=== PATIENT | female | born 1985 | race Caucasian/White ===

== ENCOUNTER 2020-10-09 09:02 | Outpatient (REF) | payer OTHER, SELFPAY | END 2020-10-09 09:03 | disposition home or self-care (01) | LOC: HO.LAB 09:02 | PROVIDERS: Visit Provider Internal Medicine | DX: Z20.822 Contact with and (suspected) exposure to COVID-19 (principal) | CPT/HCPCS: 36415; C9803; U0003; U0005 ==

== ENCOUNTER 2020-10-27 13:51 | Emergency (ER) | payer OTHER, SELFPAY ==
--- NOTE | ~2020-10-27 | XR_ITS ---
EXAMINATION: XR FOREARM, RIGHT CLINICAL INFORMATION: Arm pain COMPARISON: None TECHNIQUE: AP and lateral views of the right forearm were obtained. FINDINGS: There is no fracture or cortical disruption. Alignment is maintained at the elbow and wrist. Mild soft tissue swelling of the forearm diffusely. No radiopaque foreign body. XR/XR forearm RT 2V IMPRESSION: Soft tissue swelling without osseous abnormality.
[2020-10-27 13:55] VITALS: BMI 22.6
--- NOTE | 2020-10-27 14:04 | PC.NURSE ---
Pt refusing vitals and care. She is being seen by the physician at this time. She is very agitated but denies HI and SI.
[2020-10-27] MEDS: Haloperidol Lactate 5 MG/ML VIAL 10 MG IM (14:15)
[2020-10-27] MEDS: LORazepam 2 MG/ML VIAL IM (14:15)
--- NOTE | 2020-10-27 14:31 | PC.NURSE ---
Medical restraint given due to pt not being cooperative. Per MD pt is manic at this time and a section 12 was filed. She is refusing vitals and blood work at this time. Will continue to re-evaluate.
[2020-10-27 15:00] VITALS: BP 121/75; PULSE 82; RESP 17; O2SAT 95
[2020-10-27 15:15] VITALS: BP 110/65; PULSE 81; RESP 16; O2SAT 95
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
[2020-10-27 16:38] VITALS: BP 118/75; PULSE 90; RESP 18; O2SAT 96
--- NOTE | 2020-10-27 17:10 | PC.NURSE ---
patient refusing blood draw.
--- NOTE | 2020-10-27 17:37 | PC.NURSE ---
Multiple attenpts made by a few different staff members to obtain blood from patient. She continues to refuse. She also continues to refuse changing over into hospital attire.
--- NOTE | 2020-10-27 19:56 | PC.NURSE ---
Pt sleeping at this time, breathing equal and unlabored. Sitter in place.
[2020-10-28 00:14] VITALS: BP 152/102; PULSE 93; RESP 16; TEMP 37; O2SAT 97
--- NOTE | 2020-10-28 02:31 | PC.NURSE ---
Patient woke from nap was askin why she was here this nurse spoke with patient and stated she still needed to be seen by bhn she also complained about right arm pain. Right arm was noted to be firm and warm md was made aware and stated she wanted right forearm x-ray. patient was also educated on the need for labs and she refused to let this nurse draw them. md made aware.
[2020-10-28 04:41] VITALS: BP 154/103; PULSE 100; RESP 16; O2SAT 97
[2020-10-28] MEDS: cephALEXin 500 MG CAPSULE PO (04:41)
--- NOTE | 2020-10-28 04:53 | PC.NURSE ---
AMBULATED TO BATHROOM. REFUSED TO CHANGE CLOTHES, REFUSED TO TIE SHOELACES, REFUSED TO PROVIDE URINE. IRRITATED AT STAFF. BACK IN ROOM AT THIS TIME.
[2020-10-28 06:00] VITALS: RESP 14
--- NOTE | 2020-10-28 06:43 | PC.NURSE ---
CARE TEAM SEEING PATIENT AT THIS TIME.
--- NOTE | 2020-10-28 07:04 | PC.NURSE ---
report taken from Sam nicholson. pt sleeping on stretcher. was told pt is waiting DC papers.
--- NOTE | 2020-10-28 07:42 | MHC.CARE ---
CARE team spoke with patient, she declined to provide any urine or blood for laboratory work. She denies SI/HI with no plan and intent, and seeking methadone in the ED. She is claer from CARE team and will discharged to follow up with providers.
== END 2020-10-28 07:31 | disposition home or self-care (01) ==
PROVIDERS: Emergency Provider Emergency Medicine Emergency Medical Services
DX: F11.188 Opioid abuse with other opioid-induced disorder (principal); F31.9 Bipolar disorder, unspecified; Z79.899 Other long term (current) drug therapy; F17.210 Nicotine dependence, cigarettes, uncomplicated; Z71.6 Tobacco abuse counseling
CPT/HCPCS: 73090; 96372; 99285; J2060

== ENCOUNTER 2024-03-12 03:51 | Emergency (ER) | payer OTHER, SELFPAY ==
--- NOTE | ~2024-03-12 | US_ITS ---
EXAMINATION: US VENOUS ULTRASOUND WITH DOPPLER LOWER EXTREMITY, RIGHT CLINICAL INFORMATION: Cellulitis, edema, injection drug user. COMPARISON: None available. TECHNIQUE: Ultrasound of the deep veins is performed from the hip to the calf with compression sonography and color and pulse Doppler assessment. Spectral analysis with color-flow imaging is performed. FINDINGS: There is normal venous compression and respiratory variation and augmented flow. The visualized common femoral vein, superficial femoral vein, profunda femoral vein, popliteal vein, and the trifurcation region shows no evidence of deep venous thrombosis. There is diffuse significant subcutaneous edema. There are a few enlarged right inguinal lymph nodes with benign-appearing morphology including preserved fatty hilum, smooth margins and normal cortex that are most likely reactive in nature. US/US venous duplex LE RT IMPRESSION: 1. No DVT demonstrated in the right lower extremity. 2. Enlarged reactive right inguinal lymph nodes. 3. Significant subcutaneous swelling/edema. If the patient's symptoms persist, followup ultrasound in 5 days 7 days might be of value to exclude proximal propagation from a non-visualized calf vein.
[2024-03-12 03:59] VITALS: BP 122/76; PULSE 110; RESP 18; TEMP 36.8; O2SAT 95; BMI 24.3
[2024-03-12 04:11] VITALS: BP 117/75; PULSE 96; RESP 16; TEMP 37.3; O2SAT 92
--- OUTSIDE RECORDS SUMMARY | 2024-03-12 04:35 | XMS_ITS | Continuity of Care Document ---
Author Organization [facility] ter Address [address] [place] [id number]- Care Team Providers Care Flat Machine Cutter Name Role Phone Momo JOSE, Drew Primary Care Physician [phone] Encounter [facility] Date(s): 08/12/19 - 08/12/[address] [address]- [facility] Attending Physician: Mejia JOSE, Good Carrasco Allergies, Adverse Reactions, Alerts Substance Reaction Severity Status NKA Active Immunizations Given and Recorded Vaccine Date Status Refusal Reason tetanus/diphtheria/pertussis, acel(Tdap) 04/03/19 Given tetanus/diphtheria/pertussis, acel(Tdap) 1 10/15/18 Given influenza virus vaccine, inactivated 2 07/15/18 Gi paulino influenza virus vaccine, inactivated 08/24/14 Give n influenza virus vaccine, inactivated 07/17/12 Give n pneumococcal 23-valent vaccine 3 07/22/09 Given 1Result Comment: [10/15/2018] [facility]#[id number] 2Result Comment: [07/15/2018] [id number] 3Result Comment: lot # [id number] exp sep 21 2010 Medications cephalexin monohydrate 500 mg oral capsule 1 capsule = 500 mg, By Mouth, 4 times a day, for 7 days, # 28 capsule, 0 Refills, Acute 08/19/19 19:03:07 EST, 08/12/19 19:03:07 EST, Capsule, 159, cm, 08/12/19 17:08:28 EST, Height, 64.4, kg, 05/10/19 15:50:16 EDT, Dry Weight Start Date: 08/12/19 Stop Date: 08/19/19 Status: Ordered doxycycline hyclate 100 mg oral capsule 1 capsule = 100 mg, By Mouth, 2 times a day, for 7 days, with fluids. take with non-dairy food to minimize stomach discomfort. Limit sun exposure., # 14 capsule, 0 Refills, Acute 08/19/19 19:02:59 EST, 08/12/19 19:02:59 EST, Capsule, 159, cm, 08/12/19... Start Date: 08/12/19 Stop Date: 08/19/19 Status: Ordered duloxetine 30 mg oral enteric coated capsule 1 capsule = 30 mg, By Mouth, Daily in AM, Take in combination with Duloxetine 60 mg PO for a total of 90 mg, # 30 capsule, 2 Refills, Maintenance, 12/09/18 10:46:11 EDT Start Date: 12/09/18 Stop Date: 03/09/19 Status: Ordered duloxetine 60 mg oral enteric coated capsule 1 capsule = 60 mg, By Mouth, Daily in AM, Take in combination with Duloxetine 30 mg PO for a total of 90 mg, # 30 capsule, 2 Refills, Maintenance, 12/09/18 10:46:10 EDT Start Date: 12/09/18 Stop Date: 03/09/19 Status: Ordered ferrous sulfate 325 mg oral enteric coated tablet 325 mg, 1, tablet, By Mouth, 3 times a day, start 1 per day and increase as tolerated. Take with Vitamin C to help absorption, # 90 tablet, Refills 3, Tot. Refills 3, Maintenance, 03/03/19 7:19:09 EDT, Route to Pharmacy Electronically, [id number]... Start Date: 03/03/19 Status: Ordered KlonoPIN 1 mg oral tablet 1 tablet = 1 mg, By Mouth, 3 times a day, # 24 tablet, 0 Refills, Maintenance, 05/15/18 9:44:32 EDT, Tablet Start Date: 05/15/18 Status: Ordered lamotrigine 25 mg oral tablet 25 mg, 1, tablet, By Mouth, 2 times a day, # 60 tablet, Refills 2, Tot. Refills 2, Maintenance, 01/19/19 10:14:48 EDT, Route to Pharmacy Electronically, [id number], [facility] [id number] Start Date: 01/19/19 Status: Ordered Multivitamin By Mouth, Daily, 0 Refills, Maintenance, 08/24/14 13:17:31 Start Date: 08/24/14 Status: Ordered nicotine 14 mg/24 hr transdermal film, extended release See Instructions, # 28 patch, APPLY 1 PATCH TOPICALLY ONCE DAILY, [facility] #[id number] Start Date: 04/05/19 Status: Ordered Seroquel 50 mg oral tablet 1 tablet = 50 mg, By Mouth, Daily, 0 Refills, Maintenance, 08/24/14 13:17:23 EST Start Date: 08/24/14 Status: Ordered Ventolin HFA 108 mcg/inh inhalation aerosol with adapter 2 puffs, Inhalation, 4 times a day, PRN for wheezing, # 1 each, 0 Refills, Maintenance, 09/04/18 8:22:37 EST, Aerosol Start Date: 09/04/18 Status: Ordered Zithromax Z-Morteza 250 mg oral tablet See Instructions, as directed on package labeling, # 1 pack/packet, 0 Refills, Maintenance, 03/22/19 18:13:54 EDT Start Date: 03/22/19 Status: Ordered Problem List Condition Effective Dates Status Health Status Inform ant Anxiety(Confirmed) Active Bipolar disorder, curr episo de depressed, severe, w/psychotic features(Confirmed) Active Cellulitis and abscess(Confirmed) Active Depressive disorder(Confirmed) Active Limitation due to disability(Confirmed) 1 Active Drug or alcohol risk assessment(Confirmed) 2 Active Hx of abnormal cervical Pap smear, hx of LEEP(Confirmed) Active History of medical problems( Confirmed) 3 Active Hodgkin lymphoma(Confirmed) Active TB lung, latent(Confirmed) Active IVDU (intravenous drug user)(Confirmed) Active s/p Right tib/fib fracture w ith free flap repair.(Confirmed) Active Pneumonia MRSA, s/p LLL lobectomy(Confirmed) 4 Active Posttraumatic stress disorder(Confirmed) Active 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 Sex
--- OUTSIDE RECORDS SUMMARY | 2024-03-12 04:35 | XMS_ITS | Continuity of Care Document ---
Author Organization [facility] Address [address] [place] [address]- Care Team Providers Care Unemployment Examiner Name Role Phone Fan Villalpando MD Primary Care Physician Encounter [facility] Date(s): 08/15/22 - 09/15/22 [facility] [address] [place], [place] [address] Attending Physician: Madisyn MULLINS, Pura Referring Physician: Fan Villalpando MD Allergies, Adverse Reactions, Alerts No Known Allergies Immunizations Given and Recorded Vaccine Date Status Refusal Reason tetanus/diphtheria/pertussis, acel(Tdap) 11/18/21 Recorded tetanus/diphtheria/pertussis, acel(Tdap) 04/03/19 Given tetanus/diphtheria/pertussis, acel(Tdap) 1 10/15/18 Given tetanus/diphtheria/pertussis, acel(Tdap) 11/12/12 Recorded influenza virus vaccine, inactivated 06/02/20 [place] rded influenza virus vaccine, inactivated 2 07/15/18 Gi paulino influenza virus vaccine, inactivated 06/06/16 [place] rded influenza virus vaccine, inactivated 08/24/14 Give n influenza virus vaccine, inactivated 06/23/13 [place] rded influenza virus vaccine, inactivated 07/17/12 Give n pneumococcal 23-valent vaccine 3 07/22/09 Given 1Result Comment: [10/15/2018] [facility]#[id number] 2Result Comment: [07/15/2018] [id number] 3Result Comment: lot # [id number] exp sep 21 2010 Medications betamethasone-clotrimazole 0.05%-1% topical cream 1 application, Topically, 2 times a day, PRN foot rash, # 15 Gm, 1 Refills, Acute 05/20/23 17:17:00EDT, 05/20/22 17:16:00 EDT, Cream, [facility]/pharmacy #[id number], Partial fill upon patient request if the prescription is for a schedule II opioid drug., 1 appli... Start Date: 05/20/22 Stop Date: 05/20/23 Status: Ordered clonazePAM 1 mg oral tablet 1 tablet = 1 mg, By Mouth, 2 times a day, 0 Refills, Maintenance, 09/03/20 14:19:00 EST, Tablet, Partial fill upon patient request if the prescription is for a schedule II opioid drug. Start Date: 09/03/20 Status: Ordered Cymbalta 30 mg oral enteric coated capsule = 90 mg, By Mouth, Daily, do not crush or chew, 0 Refills, Maintenance, 09/03/20 14:18:00 EST, CR Capsule, Partial fill upon patient request if the prescription is for a schedule II opioid drug. Start Date: 09/03/20 Status: Ordered gabapentin 300 mg oral capsule 1, capsule, By Mouth, Daily, for 90 days, # 90 capsule, Refills 3, Tot. Refills 3, Physician Stop 09/29/22 11:23:00 EST, 10/04/21 11:23:00 EST, Route to Pharmacy Electronically, [facility]/pharmacy #[id number], 166, cm, 10/04/21 11:05:00 EST, Height, 66.8, kg, 03/... Start Date: 10/04/21 Stop Date: 09/29/22 Status: Ordered gabapentin 400 mg oral capsule 400 mg, 1, capsule, By Mouth, Daily at bedtime, Take with 300 mg for total of 700 mg q HS, # 30 capsule, Refills 11, Tot. Refills 11, Maintenance, 10/04/21 11:24:00 EST, Do Not Route Start Date: 10/04/21 Status: Ordered MiraLax oral powder for reconstitution = 17 Gm, By Mouth, Daily, dissolve in water before taking, # 527 Gm, 11 Refills, Acute 10/04/22 11:26:00 EST, 10/04/21 11:26:00 EST, REC Powder, [facility]/pharmacy #[id number], Partial fill upon patient request if the prescription is for a schedule II opioid drug... Start Date: 10/04/21 Stop Date: 10/04/22 Status: Ordered SEROquel 50 mg oral tablet 1 tablet = 50 mg, By Mouth, 2 times a day, PRN anxiety or sleep, 0 Refills, Maintenance, 10/31/20 23:30:00 EST, Partial fill upon patient request if the prescription is for a schedule II opioid drug. Start Date: 10/31/20 Status: Ordered Problem List Condition Confirmation Course Effective Dates Status H ealth Status Informant Anxiety Confirmed Active Bipolar disorder, curr episode depressed, severe, w/psychotic features Confirmed Active Cellulitis and abscess Confirmed Active Chronic pain Confirmed Active Depressive disorder Confirmed Active Limitation due to disability 1 Confirmed Active Focal myositis Confirmed Active Drug or alcohol risk assessment 2 Confirmed Active Hx of abnormal cervical Pap smear, hx of LEEP Confirmed Active History of medical problems 3 Confirmed Active History of opioid abuse Confirmed Active Hodgkin lymphoma Confirmed Active TB lung, latent Confirmed Active IVDU (intravenous drug user) Confirmed Active Menometrorrhagia Confirmed Active Myositis: Focal anterior chest wall bx 11/18 Dr. Faustino Grant Confirmed Active Dyspareunia in female Confirmed Active s/p Right tib/fib fracture with free flap repair. Confirmed Active Pneumonia MRSA, s/p LLL lobectomy 4 Confirmed Active Posttraumatic stress disorder Confirmed Active Secondary amenorrhea Confirmed Active Persistent moderate somatic symptom disorder with predominant pain Confirmed Active Viral hepatitis C Confirmed Active 1initial Oswestry Disability Index: 74% ( crippled ) on 12/08/17; initial [place]: 14 on 12/08/17 2SOAPP-R: 38 on 12/08/17 3Pain relevant problem list includes: See below [id number] Social History Social History Type Response Tobacco Use: 4 or less cigar ettes(less than 1/4 pack)/day in last 30 days. Sex Patient Care team information Care Team Personnel Name: Deneen Guzman RN Position: [facility] RN Member Role: Primary Care Nurse Name: Mabel Quick RN Position: [facility] PCO RN Member Role: Primary Care Nurse Name: Fan Villalpando MD Position: [facility] Primary Care Physician Member Role: PCP Address: Address: [address] [place] [address] Adult & Pediatric Medicine [place], [place] [address] Name: Mely Castillo RN Position: [facility] RN Member Role: Primary Care Nurse Name: Torri Richards RN Position: [facility] RN Member Role: Primary Care Nurse Name: Spencer Willard Position: [facility] RN Member Role: Primary Care Nurse Name: Estephania Yu RN Position: [facility] RN Supv Member Role: Primary Care Nurse Name: Evelyn Joy RN Position: [facility] RN Member Role: Primary Care Nurse Name: Alix Milner RN Position: [facility] RN Member Role: Primary Care Nurse Name: Sandra Virgen MD Position: [facility] EFFICIENCY EXPERT MD Member Role: Lifetime EFFICIENCY EXPERT Physician Address: Address: [address] [place] [address]'s [facility] [place] [address]- Name: Rae Cruz RN Position: [facility] RN Member Role: Primary Care Nurse Name: Mary Jo Moeller RN Position: [facility] Onco RN Member Role: Primary Care Nurse Care Team Related Persons Name: NIC WOOD Address: [address] [address]
--- OUTSIDE RECORDS SUMMARY | 2024-03-12 04:35 | XMS_ITS | Continuity of Care Document ---
Author Organization [facility] Address [address] [place] [address]- Care Team Providers Care Senior Hadoop Developer Name Role Phone Sarah Padilla MD Primary Care Physician [facility]21 - 04/26/21 [facility] [address] [place], [place] [address] Allergies, Adverse Reactions, Alerts Substance Reaction Severity Status NKA Active Immunizations Given and Recorded Vaccine Date Status Refusal Reason influenza virus vaccine, inactivated 06/02/20 Tyrone rded influenza virus vaccine, inactivated 1 07/15/18 Gi paulino influenza virus vaccine, inactivated 08/24/14 Give n influenza virus vaccine, inactivated 07/17/12 Give n tetanus/diphtheria/pertussis, acel(Tdap) 04/03/19 Given tetanus/diphtheria/pertussis, acel(Tdap) 2 10/15/18 Given pneumococcal 23-valent vaccine 3 07/22/09 Given 1Result Comment: [07/15/2018] [id number] 2Result Comment: [10/15/2018] [facility]#[id number] 3Result Comment: lot # [id number] exp sep 21 2010 Medications clonazePAM 1 mg oral tablet 1 tablet [...] opioid drug. Start Date: 09/03/20 Status: Ordered diclofenac sodium 75 mg oral delayed release tablet 1 tablet = 75 mg, By Mouth, 2 times a day, with food, # 28 tablet, 0 Refills, Maintenance, 04/25/2114:22:00 EDT, [facility]/pharmacy #[id number], 166, cm, 04/25/21 13:44:00 EDT, Height, 66.8, kg, 10/31/20 23:17:00 EST, Dry Weight Start Date: 04/25/21 Stop Date: 05/09/21 Status: Ordered Flagyl 500 mg oral tablet 1 tablet = 500 mg, By Mouth, Every 12 hours, # 20 tablet, 0 Refills, Maintenance, 04/02/21 9:36:00 EDT, Tablet, Partial fill upon patient request if the prescription is for a schedule II opioid drug. Start Date: 04/02/21 Stop Date: 04/09/21 Status: Ordered gabapentin 300 mg oral capsule 300 mg, 1, capsule, By Mouth, Daily, # 30 capsule, Refills 1, Tot. Refills 1, Maintenance, 03/27/2116:37:00 EDT, Route to Pharmacy Electronically, [facility]/pharmacy #[id number], patient takes this dose in AM -with 400 mg at bedtime, 160, cm, 03/01/21 11:04:00... Start Date: 03/27/21 Stop Date: 05/26/21 Status: Ordered gabapentin 400 mg oral capsule 400 mg, 1, capsule, By Mouth, Daily at bedtime, Take with 300 mg for total of 700 mg q HS, # 30 capsule, Refills 5, Tot. Refills 5, Maintenance, 02/15/21 10:37:00 EDT, Route to Pharmacy Electronically, [facility] #[id number], 160, cm, 11/03/20 7:... Start Date: 02/15/21 Status: Ordered lamotrigine 25 mg oral tablet 50 mg, 2, tablet, By Mouth, 2 times a day, Refills 0, Maintenance, 11/03/20 12:33:00 EST, Partial fill upon patient request if the prescription is for a schedule II opioid drug. Start Date: 11/03/20 Status: Ordered methadone 10 mg oral tablet 6 tablet = 60 mg, By Mouth, Daily, 0 Refills, Maintenance, 11/03/20 12:35:00 EST, Tablet, Partial fill upon patient request if the prescription is for a schedule II opioid drug. Start Date: 11/03/20 Status: Ordered SEROquel 50 mg oral tablet 1 tablet = 50 mg, By Mouth, 2 times a day, 0 Refills, Maintenance, 10/31/20 23:30:00 EST, Partial fill upon patient request if the prescription is for a schedule II opioid drug. Start Date: 10/31/20 Status: Ordered Problem List Condition Effective Dates Status Health Status Inform ant Anxiety(Confirmed) Active Bipolar disorder, curr episo de depressed, severe, w/psychotic features(Confirmed) Active Cellulitis and abscess(Confirmed) Active Chronic pain(Confirmed) Active Depressive disorder(Confirmed) Active Limitation due to disability(Confirmed) 1 Active Focal myositis(Confirmed) Active Drug or alcohol risk assessment(Confirmed) 2 Active Hx of abnormal cervical Pap smear, hx of LEEP(Confirmed) Active History of medical problems( Confirmed) 3 Active Hodgkin lymphoma(Confirmed) Active TB lung, latent(Confirmed) Active IVDU (intravenous drug user)(Confirmed) Active Menometrorrhagia(Confirmed) Active Myositis: Focal anterior jabari st wall bx 11/18 Dr. 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 Sex
--- OUTSIDE RECORDS SUMMARY | 2024-03-12 04:35 | XMS_ITS | Continuity of Care Document ---
Author Organization [facility] Address [address] [place] [address]- Care Team Providers Care Bladder Blower Name Role Phone Drew Barr MD Primary Care Physician [phone] [facility]counter [facility] Date(s): 11/29/20 - 12/29/20 [facility] [address] [place], [place] [address] Allergies, Adverse Reactions, Alerts Substance Reaction Severity Status NKA Active Immunizations Given and Recorded Vaccine Date Status Refusal Reason tetanus/diphtheria/pertussis, acel(Tdap) 04/03/19 Given tetanus/diphtheria/pertussis, acel(Tdap) 1 10/15/18 Given influenza virus vaccine, inactivated 2 07/15/18 Gi paulino influenza virus vaccine, inactivated 08/24/14 Give n influenza virus vaccine, inactivated 07/17/12 Give n pneumococcal 23-valent vaccine 3 07/22/09 Given 1Result Comment: [10/15/2018] [facility]#[id number] 2Result Comment: [07/15/2018] [id number] 3Result Comment: lot # [id number] exp sep 21 2010 Medications apixaban 5 mg oral tablet See Instructions, 2 tablet By Mouth 2 times a day for 8 doses and then 1 tablet 2 times a day thereafter, # 48 tablet, 2 Refills, Maintenance, 11/03/20 12:54:00 EST, Tablet, [facility],Partial fill upon patient request if the prescripti... Start Date: 11/03/20 Status: Ordered clonazePAM 1 mg oral tablet [...] opioid drug. Start Date: 09/03/20 Status: Ordered ferrous sulfate 325 mg oral enteric coated tablet 325 mg, 1, tablet, By Mouth, 3 times a day, start 1 per day and increase as tolerated. Take with Vitamin C to help absorption, # 90 tablet, Refills 3, Tot. Refills 3, Maintenance, 11/03/19 12:18:00 EST, Route to Pharmacy Electronically, [facility]... Start Date: 11/03/19 Status: Ordered gabapentin 400 mg oral capsule 400 mg, 1, capsule, By Mouth, Daily at bedtime, Take with 300 mg for total of 700 mg q HS, # 30 capsule, Refills 5, Tot. Refills 5, Maintenance, 02/23/20 12:22:00 EDT, Route to Pharmacy Electronically, [facility] #[id number], 160, cm, 10/07/19 10... Start Date: 02/23/20 Status: Ordered lamotrigine 25 mg oral tablet 50 mg, 2, tablet, By Mouth, 2 times a day, Refills 0, Maintenance, 11/03/20 12:33:00 EST, Partial fill upon patient request if the prescription is for a schedule II opioid drug. Start Date: 11/03/20 Status: Ordered methadone 10 mg oral tablet 4 tablet = 40 mg, By Mouth, Daily, 0 Refills, Maintenance, [...] latent(Confirmed) Active IVDU (intravenous drug user)(Confirmed) Active Myositis: Focal anterior jabari st wall [...] 74% ( crippled ) on 12/08/17; initial [employer]: 14 on 12/08/17 2SOAPP-R: 38 on 12/08/17 3Pain relevant problem list includes: See below [id number] Social History Social History Type Response Tobacco Use: 4 or less cigar ettes(less than 1/4 pack)/day in last 30 days. Sex
--- OUTSIDE RECORDS SUMMARY | 2024-03-12 04:35 | XMS_ITS | Continuity of Care Document ---
Author Organization [facility] Address [address] [place] [address]- Care Team Providers Care Integrated Marketing Specialist Name Role Phone Fan Villalpando MD Primary Care Physician [phone] [facility] Date[facility]s): 10/25/21 - 11/24/21 [facility] [address] [place], [place] [address] Allergies, Adverse Reactions, Alerts No Known Allergies Immunizations Given and Recorded Vaccine Date Status Refusal Reason influenza virus vaccine, inactivated 06/02/20 Tyrone rded influenza virus vaccine, inactivated 1 07/15/18 Gi paulino influenza virus vaccine, inactivated 08/24/14 Give n influenza virus vaccine, inactivated 07/17/12 Give n tetanus/diphtheria/pertussis, acel(Tdap) 04/03/19 Given tetanus/diphtheria/pertussis, acel(Tdap) 2 10/15/18 Given pneumococcal 23-valent vaccine 3 07/22/09 Given 1Result Comment: [07/15/2018] [id number] 2Result Comment: [10/15/2018] [facility]#[id number] 3Result Comment: lot # [id number] exp sep [...] 28 tablet, 0 Refills, Maintenance, 04/25/2114:22:00 EDT, [facility]/pharmacy #[id number], 166, cm, 04/25/21 13:44:00 EDT, Height, 66.8, kg, 10/31/20 23:17:00 EST, Dry Weight Start Date: 04/25/21 Stop Date: 05/09/21 Status: Ordered gabapentin 300 mg oral capsule 1, capsule, By Mouth, Daily, for 90 days, # 90 capsule, Refills 3, Tot. Refills 3, Physician Stop 09/29/22 11:23:00 EST, 10/04/21 11:23:00 EST, Route to Pharmacy Electronically, [facility]/pharmacy #[id number], 166, cm, 10/04/21 11:05:00 EST, Height, 66.8, kg, 03... Start Date: 10/04/21 Stop Date: 09/29/22 Status: Ordered gabapentin 400 mg oral capsule 400 mg, 1, capsule, By Mouth, Daily at bedtime, Take with 300 mg for total of 700 mg q HS, # 30 capsule, Refills 11, Tot. Refills 11, Maintenance, 10/04/21 11:24:00 EST, Do Not Route Start Date: 10/04/21 Status: Ordered methadone 10 mg oral tablet See Instructions, 55 mg By Mouth Daily, 0 Refills, Maintenance, 11/03/20 12:35:00 EST, Tablet, Partial fill upon patient request if the prescription is for a schedule II opioid drug. Start Date: 11/03/20 Status: Ordered MiraLax oral powder for reconstitution = 17 Gm, By Mouth, Daily, dissolve in water before taking, # 527 Gm, 11 Refills, Acute 10/04/22 11:26:00 EST, 10/04/21 11:26:00 EST, REC Powder, [facility]/pharmacy #[id number], Partial fill upon patient request if [...] History of medical problems( Confirmed) 3 Active History of opioid abuse(Confirmed) Active Hodgkin lymphoma(Confirmed) Active TB lung, latent(Confirmed) [...] 74% ( crippled ) on 12/08/17; initial [place]: 14 on 12/08/17 2SOAPP-R: 38 on 12/08/17 3Pain relevant problem list includes: See below [id number] Social History Social History Type Response Tobacco Use: 4 or less cigar ettes(less than 1/4 pack)/day in last 30 days. Sex
--- OUTSIDE RECORDS SUMMARY | 2024-03-12 04:35 | XMS_ITS | Continuity of Care Document ---
Author Organization [facility] Address [address] [place] [address]- Care Team Providers Care Pusher Operator Name Role Phone Kwasi JOSE, Fan Franz Primary Care Physician [facility] Date[facility]s): 07/25/21 - 08/01/21 [facility] [address] [place], [place] [address] Attending Physician: Sarah Padilla MD Allergies, Adverse Reactions, Alerts Substance Reaction Severity [...] vaccine 3 07/22/09 Given 1Result Comment: [07/15/2018] [id number] 2Result Comment: [10/15/2018] [facility]NOTE 3]#[id number] 3Result Comment: lot # [id number] exp sep [...] 28 tablet, 0 Refills, Maintenance, 04/25/2114:22:00 EDT, [facility]/pharmacy #[id number], 166, cm, 04/25/21 13:44:00 EDT, Height, [...] Date: 04/02/21 Stop Date: 04/09/21 Status: Ordered lamotrigine 25 mg oral tablet [...] 74% ( crippled ) on 12/08/17; initial [place]: 14 on 12/08/17 2SOAPP-R: 38 on 12/08/17 3Pain relevant problem list includes: See below [id number] Vital Signs Most recent to oldest [Reference Range]: 1 Height 166 cm (07/25/21 10:39 AM) Weight 66.3 kg (07/25/21 10:39 AM) Oxygen Saturation [94-100 %] 99 % (07/25/21 10:39 AM) Pulse Rate [55-90 bpm] 80 bpm (07/25/21 10:39 AM) Body Mass Index [18.5-24.99] 24.06 (07/25/21 10:39 AM) Blood Pressure [90-138/55-84 mm Hg] 122/ 82mm Hg (07/25/21 10:39 AM) Temperature [96.8-100.4 DegF] 98.8 DegF (07/25/21 10:39 AM) Mode of Delivery (Oxygen) Room air (07/25/21 10:39 AM) Blood pressure sites Arm, left (07/25/21 10:39 AM) Temperature Route Temporal (07/25/21 10:39 AM) Weight Obtained Via Standing scale (07/25/21 10:39 AM) Social History Social History Type Response Tobacco Use: 4 or less cigar ettes(less than 1/4 pack)/day in last 30 days. Sex
--- OUTSIDE RECORDS SUMMARY | 2024-03-12 04:35 | XMS_ITS | Continuity of Care Document ---
Author Organization [facility] Marlyn emmanuel Address [address] [place] [address] [address] [place] [address]- Care Team Providers Care District Loss Prevention Manager Name Role Phone Drwe Barr MD Primary Care Physician [facility] Date[facility]s): 08/03/19 - 08/10/19 [facility] [address] [place] [address]- [facility] Attending Physician: Bijan Webber MD Referring Physician: Not on Staff, Referring MD Allergies, Adverse Reactions, Alerts Substance Reaction [...] 1Result Comment: [10/15/2018] [facility]#[id number] 2Result Comment: [07/15/2018] [id number] 3Result Comment: lot # [id number] exp sep 21 2010 Medications duloxetine 30 mg oral enteric coated capsule [...] 03/03/19 7:19:09 EDT, Route to Pharmacy Electronically, [id number]... Start Date: 03/03/19 Status: Ordered KlonoPIN 1 [...] 01/19/19 10:14:48 EDT, Route to Pharmacy Electronically, [id number], [facility] [id number] Start Date: 01/19/19 Status: Ordered Multivitamin By Mouth, Daily, 0 Refills, Maintenance, 08/24/14 13:17:31 Start Date: 08/24/14 Status: Ordered nicotine 14 mg/24 hr transdermal film, extended release See Instructions, # 28 patch, APPLY 1 PATCH TOPICALLY ONCE DAILY, [facility] #[id number] Start Date: 04/05/19 Status: Ordered Seroquel 50 [...] 74% ( crippled ) on 12/08/17; initial [place]: 14 on 12/08/17 2SOAPP-R: 38 on 12/08/17 3Pain relevant problem list includes: See below [id number] Vital Signs Most recent to oldest [Reference Range]: 1 Height 159 cm (08/03/19 11:33 AM) Social History Social History Type Response Tobacco Use: 4 or less cigar ettes(less than 1/4 pack)/day in last 30 days. Sex
--- OUTSIDE RECORDS SUMMARY | 2024-03-12 04:35 | XMS_ITS | Continuity of Care Document ---
Author Organization [facility] Address [address] [place] [address]- Care Team Providers Care Education Coordinator Name Role Phone Fan Villalpando MD Primary Care Physician Encounter [facility] Date(s): 03/27/22 - 04/03/22 [facility] [address] [place], [place] [address] Encounter Diagnosis Lymphadenopathy, cervical(Discharge Diagnosis) - 03/27/22 Attending Physician: Nelsy Navarro DO Referring Physician: Madisyn CAR USHER, Pura Allergies, Adverse Reactions, Alerts No Known Allergies Immunizations Given and Recorded Vaccine Date Status Refusal Reason tetanus/diphtheria/pertussis, acel(Tdap) 11/18/21 Recorded tetanus/diphtheria/pertussis, acel(Tdap) 04/03/19 Given tetanus/diphtheria/pertussis, acel(Tdap) 1 10/15/18 Given influenza virus vaccine, inactivated 06/02/20 Tyrone rded influenza virus vaccine, inactivated 2 07/15/18 Gi paulino influenza virus vaccine, inactivated 08/24/14 Give n influenza virus vaccine, inactivated 07/17/12 Give n pneumococcal 23-valent vaccine 3 07/22/09 Given 1Result Comment: [10/15/2018] [facility]#[id number] 2Result Comment: [07/15/2018] [id number] 3Result Comment: lot # [id number] exp sep [...] 10/04/21 11:23:00 EST, Route to Pharmacy Electronically, [facility]/pharmacy #[id number], 166, cm, 10/04/21 11:05:00 EST, Height, [...] 11:26:00 EST, 10/04/21 11:26:00 EST, REC Powder, [facility]/pharmacy #[id number], Partial fill upon patient request if [...] 74% ( crippled ) on 12/08/17; initial [place]: 14 on 12/08/17 2SOAPP-R: 38 on 12/08/17 3Pain relevant problem list includes: See below [id number] Diagnosis Diagnosis Type Effective Dates Health Status Cl inical Service Informant Lymphadenopathy, cervical Discharge Diagnosis 03/27/22 Vital Signs Most recent to oldest [Reference Range]: 1 Height 160 cm (03/27/22 1:48 PM) Weight 62.8 kg (03/27/22 1:48 PM) Oxygen Saturation [94-100 %] 97 % (03/27/22 1:48 PM) Pulse Rate [55-90 bpm] 66 bpm (03/27/22 1:48 PM) Body Mass Index [18.5-24.99] 24.53 (03/27/22 1:48 PM) Blood Pressure [90-138/55-84 mm Hg] 100/ 58mm Hg (03/27/22 1:48 PM) Mode of Delivery (Oxygen) Room air (03/27/22 1:48 PM) Blood pressure sites Arm, right (03/27/22 1:48 PM) Weight Obtained Via Standing scale (03/27/22 1:48 PM) Social History Social History Type Response Tobacco Use: 4 or less cigar ettes(less than 1/4 pack)/day in last 30 days. Sex
--- OUTSIDE RECORDS SUMMARY | 2024-03-12 04:35 | XMS_ITS | Continuity of Care Document ---
Author Organization [facility] Address [address] [place] [address]- Care Team Providers Care Engine House Helper Name Role Phone Drew Barr MD Primary Care Physician [facility] Date[facility]s): 09/22/19 - 09/23/[address] [address]- [facility] Encounter Diagnosis Chest pain(Final) - 09/23/19 Discharge Disposition: A-D/C Home Attending Physician: Billy Samano MD Admitting Physician: Billy Samano MD Referring Physician: Not on Staff, Referring [...] vaccine 3 07/22/09 Given 1Result Comment: [10/15/2018] [facility]#[id number] 2Result Comment: [07/15/2018] [id number] 3Result Comment: lot # [id number] exp sep 21 2010 Medications cephalexin monohydrate 500 mg oral capsule 1 capsule = 500 mg, By Mouth, 4 times a day, Please take entire course, # 148 capsule, 0 Refills, Acute 10/11/19 21:00:00 EST, 09/05/19 11:01:00 EST, Capsule, [facility] #[id number], 160, cm, 09/02/19 13:38:00 EST, Height, 62, kg, 08/30/19 3:20:0... Start Date: 09/05/19 Stop Date: 10/11/19 Status: Ordered duloxetine 60 mg oral enteric coated capsule 1 capsule = 60 mg, By Mouth, Daily in AM, Take in combination with Duloxetine 30 mg PO for a total of 90 mg, # 30 capsule, 2 Refills, Maintenance, 12/09/18 10:46:10 EDT Start Date: 12/09/18 Stop Date: 03/09/19 Status: Ordered KlonoPIN 1 mg oral tablet 1 tablet = 1 mg, By Mouth, 3 times a day, # 24 tablet, 0 Refills, Maintenance, 05/15/18 9:44:32 EDT, Tablet Start Date: 05/15/18 Status: Ordered lamotrigine 25 mg oral tablet 50 mg, 2, tablet, By Mouth, Daily, # 60 tablet, Refills 2, Tot. Refills 2, Maintenance, 01/19/19 10:14:48 EDT, Route to Pharmacy Electronically, [facility] [id number] Start Date: 01/19/19 Status: Ordered Seroquel 50 mg oral tablet 1 tablet = 50 mg, By Mouth, Daily at bedtime, 0 Refills, Maintenance, 08/24/14 13:17:23 EST Start Date: 08/24/14 Status: Ordered Problem List Condition Effective Dates [...] Disability Index: 74% ( crippled ) on 4/9/18; initial [place]: 14 on 12/08/17 2SOAPP-R: 38 on 12/08/17 3Pain relevant problem list includes: See below [id number] Results Radiology Reports * Exam Date Time Procedure Performing Provider Status 09/22/19 4:24 PM Chest 2 Views Frontal and Lat Christi Saab; Auth (Verified) Notes: (Chest 2 Views Frontal and Lat) Reason For Exam: Fever;Cough RESULT: Chest 2 Views Frontal and Lat Chest 2 Views Frontal and Lat INDICATION: Chest pain. COMPARISON: Multiple priors, most recent 12/06/2018. FINDINGS: LINES AND TUBES: None. LUNGS AND PLEURA: Clear lungs. Normal pulmonary vascularity. No pleural effusion. No pneumothorax. IMPRESSION: No acute abnormality. I have personally reviewed the images and I agree with this report. WSN: [id number] Dictated By: Nathanael Meyers MD Dictated Date/Time: 09/22/19 4:27 pm Reviewed By: Alin Jeff MD Signed By: Alin Jeff MD Signed Date/Time: 09/22/19 4:32 pm Transcribed By: CARMEN Transcribed Date/Time: 09/22/19 4:26 pm Vital Signs Most recent to oldest [Reference Range]: 1 2 3 Oxygen Saturation [94-100 %] 100 % (09/23/19 1:01 AM) 100 % (09/22/19 9:30 PM) 99 % (09/22/19 3:06 PM) Pulse Rate [55-90 bpm] 80 bpm (09/23/19 1:01 AM) 88 bpm (09/22/19 9:30 PM) 100 bpm *H* (09/22/19 3:06 PM) Blood Pressure [90-138/55-84 mm Hg] 103/77mm Hg (09/23/19 1:01 AM) 112/87mm Hg (09/22/19 9:30 PM) 115/81mm Hg (09/22/19 3:06 PM) Respiratory Rate [16-30 br/min] 16 br/min (09/23/19 1:01 AM) 18 br/min (09/22/19 9:30 PM) 12 br/min *L* (09/22/19 3:06 PM) Temperature [96.8-100.4 DegF] 98.0 DegF (09/23/19 1:01 AM) 98.5 DegF (09/22/19 9:30 PM) 98.0 DegF (09/22/19 3:06 PM) Mode of Delivery (Oxygen) Room air (09/23/19 1:01 AM) Room air (09/22/19 9:30 PM) Room air (09/22/19 3:06 PM) Blood pressure sites Arm, right (09/23/19 1:01 AM) Arm, right (09/22/19 9:30 PM) Arm, right (09/22/19 3:06 PM) Temperature Route Oral (09/23/19 1:01 AM) Oral (09/22/19 9:30 PM) Oral (09/22/19 3:06 PM) Social History Social History Type Response Tobacco Use: 4 or less cigar ettes(less than 1/4 pack)/day in last 30 days. Sex
--- OUTSIDE RECORDS SUMMARY | 2024-03-12 04:35 | XMS_ITS | Continuity of Care Document ---
Author Organization [facility] Address [address] [place] [address]- Care Team Providers Care Supply Controller Name Role Phone Sarah Padilla MD Primary Care Physician [facility] Date[facility]s): 06/07[facility]21 - 07/07/21 [facility] [address] [place], [place] [address] Allergies, Adverse Reactions, Alerts Substance Reaction Severity [...] vaccine 3 07/22/09 Given 1Result Comment: [07/15/2018] [id number] 2Result Comment: [10/15/2018] [facility]#[id number] 3Result Comment: lot # [id number] exp sep [...] 28 tablet, 0 Refills, Maintenance, 04/25/2114:22:00 EDT, [facility]/pharmacy #[id number], 166, cm, 04/25/21 13:44:00 EDT, Height, [...] capsule 1, capsule, By Mouth, Daily, for 30 days, # 30 capsule, Refills 1, Physician Stop, Route to Pharmacy Electronically, [id number], 166, cm, 04/25/21 13:44:00 EDT, Height, 66.8, kg, 10/31/20 23:17:00 EST, Dry Weight Start Date: 06/25/21 Stop Date: 07/25/21 Status: Ordered lamotrigine 25 mg oral tablet [...] 74% ( crippled ) on 12/08/17; initial [place]: 14 on 12/08/17 2SOAPP-R: 38 on 12/08/17 3Pain relevant problem list includes: See below 88125 Social History Social History Type Response Tobacco Use: 4 or less cigar ettes(less than 1/4 pack)/day in last 30 days. Sex
--- OUTSIDE RECORDS SUMMARY | 2024-03-12 04:35 | XMS_ITS | Continuity of Care Document ---
Author Organization [facility] Address [address] [place] [address]- Care Team Providers Care Engineering Executive Name Role Phone Kwasi JOSE, Fan Franz Primary Care Physician [facility] Date(s): 01/20/23 - 02/19/23 [facility] [address] [place], [place] [address] Allergies, Adverse Reactions, Alerts No Known Allergies [...] vaccine 3 07/22/09 Given 1Result Comment: [10/15/2018] [facility]#[id number] 2Result Comment: [07/15/2018] [id number] 3Result Comment: lot # [id number] exp sep 21 2010 Medications betamethasone-clotrimazole 0.05%-1% topical cream See Instructions, APPLY TOPICALLY 2 TIMES A DAY NEEDED FOR FOOT RASH, # 15 Gm, 5 Refills, Maintenance, 02/12/23 9:53:00 EDT, [id number], 30, APPLY TOPICALLY 2 TIMES A DAY NEEDED FOR FOOT RASH, 160, cm, 01/07/23 4:00:00 EDT, Height, 61, kg,... Start Date: 02/12/23 Status: Ordered clonazePAM 1 mg oral tablet [...] drug. Start Date: 09/03/20 Status: Ordered gabapentin 400 mg oral capsule 400 mg, 1, capsule, By Mouth, Daily at bedtime, Take with 300 mg for total of 700 mg q HS, # 30 capsule, Refills 11, Tot. 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 Sex Patient Care team information Care Team Personnel Name: Deneen Guzman RN Position: [facility] RN Member Role: Primary Care Nurse Name: Mabel Quick RN Position: [facility] AMB Nurse Member Role: Primary Care Nurse Name: Fan Villalpando MD Position: [facility] Physician - Primary Care Member Role: PCP Address: Address: [address] [place] [address] Adult [place] [address]- Name: Mely Castillo RN Position: [facility] RN Member Role: Primary Care Nurse Name: Torri Richards RN Position: [facility] RN Member Role: Primary Care Nurse Name: Evelyn Hall RN Position: [facility] RN Member Role: Primary Care Nurse Name: Spencer Willard Position: S RN Member Role: Primary Care Nurse Name: Estephania Yu RN Position: [facility] RN Supv Member Role: Primary Care Nurse Name: Alix Milner RN Position: [facility] RN Member Role: Primary Care Nurse Name: Collin Bolanos RN Position: [facility] SN RN Member Role: Primary Care Nurse Name: Sandra Virgen MD Position: [facility] TRANSFILL TECHNICIAN MD Member Role: Lifetime TRANSFILL TECHNICIAN Physician Address: Address: [address] [facility] [place] [address]- [place] Name: Rae Cruz RN Position: [facility] RN Member Role: Primary Care Nurse Name: Mary Jo Moeller RN Position: [facility] Onco RN Member Role: Primary Care Nurse Care Team Related Persons Name: ISRAELNIC Address: home [address] [place] [address]
--- OUTSIDE RECORDS SUMMARY | 2024-03-12 04:35 | XMS_ITS | Continuity of Care Document ---
Author Organization [facility] ter Address [address] [place] [address]- Care Team Providers Care Skip Operator Name Role Phone Drew Barr MD Primary Care Physician [phone] [place] [facility]20 - 11/03/[address] [address] Discharge Disposition: A-D/C Home Attending Physician: Arnold JOSE, Rodney Pendleton Admitting Physician: Anand Rainey MD Referring Physician: Not on Staff, Referring [...] vaccine 3 07/22/09 Given 1Result Comment: [10/15/2018] [facility]#[id number] 2Result Comment: [07/15/2018] [id number] 3Result Comment: lot # [id number] exp sep 21 2010 Medications apixaban 5 mg oral tablet See Instructions, 2 tablet By Mouth 2 times a day for 8 doses and then 1 tablet 2 times a day thereafter, # 48 tablet, 2 Refills, Maintenance, 11/03/20 12:54:00 EST, Tablet, [facility],Partial fill upon patient request if [...] 11/03/19 12:18:00 EST, Route to Pharmacy Electronically, [facility]... Start Date: 11/03/19 Status: Ordered gabapentin 400 mg oral capsule 400 mg, 1, capsule, By Mouth, Daily at bedtime, Take with 300 mg for total of 700 mg q HS, # 30 capsule, Refills 5, Tot. Refills 5, Maintenance, 02/23/20 12:22:00 EDT, Route to Pharmacy Electronically, [facility] #[id number], 160, cm, 10/07/19 10... Start Date: 02/23/20 Status: Ordered lamotrigine 25 mg oral tablet 50 mg, 2, tablet, By Mouth, 2 times a day, Refills 0, Maintenance, 11/03/20 12:33:00 EST, Partial fill upon patient request if the prescription is for a schedule II opioid drug. Start Date: 11/03/20 Status: Ordered methadone 10 mg oral tablet 40 mg, Tablet, By Mouth, 11/03/20 9:00:00 EST Start Date: 11/03/20 Stop Date: 11/03/20 Status: Completed methadone 10 mg oral tablet 4 tablet [...] 74% ( crippled ) on 12/08/17; initial [place]: 14 on 12/08/17 2SOAPP-R: 38 on 12/08/17 3Pain relevant problem list includes: See below [id number] Results Orders for Microbiology Reports Name Date Blood Culture 10/31/20 Blood Culture #2 10/31/20 Microbiology Reports TEST:Blood Culture, Second Order STATUS:Unauthenticated BODY SITE: SOURCE:Blood COLLECTED DATE/TIME:10/31/20 7:33 PM Blood Culture, Second Order SPECIMEN DESCRIPTION : BLOOD L FA SPECIAL REQUESTS : NONE CULTURE : NO GROWTH 3 DAYS REPORT STATUS : PRELIMINARY REPORT TEST:Blood Culture STATUS:Unauthenticated BODY SITE: SOURCE:Blood COLLECTED DATE/TIME:10/31/20 1:08 PM Blood Culture SPECIMEN DESCRIPTION : BLOOD L AC SPECIAL REQUESTS : NONE CULTURE : NO GROWTH 3 DAYS REPORT STATUS : PRELIMINARY REPORT Radiology Reports * Exam Date Time Procedure Performing Provider Status 10/31/20 7:22 PM Chest 2 Views Frontal and Lat Abbey Ramirez; Auth (Verified) Notes: (Chest 2 Views Frontal and Lat) Reason For Exam: endocarditis?;Other: RESULT: Chest 2 Views Frontal and Lat Chest 2 Views Frontal and Lat Hx of Present Illness: Right arm left leg; Reason: Other:; endocarditis?; Clinical Question(s): Pneumonia COMPARISON: 10/21/2019. 03/01/2020. FINDINGS: LINES AND TUBES: None. LUNGS AND PLEURA: Clear lungs. Normal pulmonary vascularity. No pleural effusion.. Mild blunting of the LEFT lateral costophrenic sulcus and flat shape of the LEFT diaphragmatic contour representing chronic pleural parenchymal scarring, unchanged compared with03/01/2020. Posterior costophrenic sulci are clear. No pneumothorax. HEART, MEDIASTINUM AND RACHEL: Heart is normal in size. Normal upper mediastinal and hilar contour. BONES AND SOFT TISSUES: No acute abnormality. IMPRESSION: No acute pulmonary process. WSN: [id number] Ordering Physician: Gely Cordero Dictated By: Haley Bell MD Dictated Date/Time: 10/31/20 7:30 pm Reviewed By: Haley Bell MD Signed By: Haley Bell MD Signed Date/Time: 10/31/20 7:30 pm Transcribed By: CARMEN Transcribed Date/Time: 10/31/20 7:27 pm * Exam Date Time Procedure Performing Provider Status 10/31/20 1:46 PM Forearm 2 Views Right Betsy Lopez; Auth (Verified) Notes: (Forearm 2 Views Right) Reason For Exam: with Pain;Trauma RESULT: Forearm 2 Views Right Forearm 2 Views Right Hx of Present Illness: Right arm left leg; Reason: Trauma; with Pain; Clinical Question(s): Fracture; Special Instructions: This is a protocol film and radiologist should call any findings to the Charge Nurse COMPARISON: None. FINDINGS: No fractures or bone lesions. The visualized joint spaces are normal. There is soft tissue swelling. IMPRESSION: Soft tissue swelling but no acute osseous findings. WSN: [id number] Ordering Physician: Woody Fung MD Dictated By: Anastasia Costa MD Dictated Date/Time: 10/31/20 2:05 pm Reviewed By: Anastasia Costa MD Signed By: Anastasia Costa MD Signed Date/Time: 10/31/20 2:05 pm Transcribed By: CARMEN Transcribed Date/Time: 10/31/20 2:04 pm Vital Signs Most recent to oldest [Reference Range]: 1 2 3 Height 160 cm (11/03/20 7:19 AM) 160 cm (11/02/20 7:48 PM) 160 cm (11/02/20 3:15 PM) Weight 66.8 kg (10/31/20 11:17 PM) Oxygen Saturation [94-100 %] 100 % (11/03/20:19 AM) 99 % (11/02/20 7:48 PM) 96 % (11/02/20 3:15 PM) Pulse Rate [55-90 bpm] 93 bpm *H* (11/03/20:19 AM) 80 bpm (11/02/20 7:48 PM) 89 bpm (11/02/20 3:15 PM) Body Mass Index [18.5-24.99] 26.09 *H* (10/31/20 11:17 PM) Blood Pressure [90-138/55-84 mm Hg] 123/82mm Hg (11/03/20 7:19 AM) 125/80mm Hg (11/02/20 7:48 PM) 127/83mm Hg (11/02/20 3:15 PM) Respiratory Rate [16-30 br/min] 18 br/min (11/03/20 10:11 AM) 18 br/min (11/03/20 9:11 AM) 18 br/min (11/03/20 7:19 AM) Temperature [96.8-100.4 DegF] 98.4 DegF (11/03/20 7:19 AM) 97.9 DegF (11/02/20 7:48 PM) 98.0 DegF (11/02/20 3:15 PM) Mode of Delivery (Oxygen) Room air (11/03/20 7:19 AM) Room air (11/02/20 7:48 PM) Room air (11/02/20 3:15 PM) Blood pressure sites Arm, left (11/03/20 7:19 AM) Arm, right (11/02/20 7:48 PM) Arm, left (11/02/20 3:15 PM) Temperature Route Oral (11/03/20 7:19 AM) Oral (11/02/20 7:48 PM) Oral (11/02/20 3:15 PM) Dry Weight 66.8 kg (10/31/20 11:17 PM) Social History Social History Type Response Tobacco Use: 4 or less cigar ettes(less than 1/4 pack)/day in last 30 days. Sex
--- OUTSIDE RECORDS SUMMARY | 2024-03-12 04:35 | XMS_ITS | Continuity of Care Document ---
Author Organization [facility] Address [address] [place] [address]- Care Team Providers Care Cue Selector Name Role Phone Sarah Padilla MD Primary Care Physician [place] [id number] Date(s): 04/10/21 - 05/10/21 [facility] [address] [place], [place] [address] Attending Physician: Josefina Skelton Admitting Physician: AdmtrJosefina Referring Physician: Admtr, ArGage Allergies, Adverse Reactions, Alerts Substance Reaction Severity [...] vaccine 3 07/22/09 Given 1Result Comment: [07/15/2018] [id number] 2Result Comment: [10/15/2018] [facility]#[id number] 3Result Comment: lot # [id number] exp sep [...] 28 tablet, 0 Refills, Maintenance, 04/25/2114:22:00 EDT, [facility]/pharmacy #[id number], 166, cm, 04/25/21 13:44:00 EDT, [...] Maintenance, 03/27/2116:37:00 EDT, Route to Pharmacy Electronically, [facility]/pharmacy #[id number], patient takes this dose in [...] 02/15/21 10:37:00 EDT, Route to Pharmacy Electronically, [facility] #[id number], 160, cm, 11/03/20 7:... Start Date: 02/15/21 [...] 74% ( crippled ) on 12/08/17; initial [place]: 14 on 12/08/17 2SOAPP-R: 38 on 12/08/17 3Pain relevant problem list includes: See below [id number] Social History Social History Type Response Tobacco Use: 4 or less cigar ettes(less than 1/4 pack)/day in last 30 days. Sex
--- OUTSIDE RECORDS SUMMARY | 2024-03-12 04:35 | XMS_ITS | Continuity of Care Document ---
Author Organization [facility] ter Address [address] [place] [address]- Care Team Providers Care City Planning Aide Name Role Phone Fan Villalpando MD Primary Care Physician [facility]counter [facility] Date(s): 03/27/22 - 03/27/[address] [address] Attending Physician: Nelsy Navarro DO Allergies, Adverse Reactions, Alerts No Known Allergies Immunizations Given and Recorded Vaccine Date Status Refusal Reason influenza virus vaccine, inactivated 06/02/20 Tyrone rded influenza virus vaccine, inactivated 1 07/15/18 Gi paulino influenza virus vaccine, inactivated 08/24/14 Give n influenza virus vaccine, inactivated 07/17/12 Give n tetanus/diphtheria/pertussis, acel(Tdap) 04/03/19 Given tetanus/diphtheria/pertussis, acel(Tdap) 2 10/15/18 Given pneumococcal 23-valent vaccine 3 07/22/09 Given 1Result Comment: [07/15/2018] [id number] 2Result Comment: [10/15/2018] [facility]#[id number] 3Result Comment: lot # [id number] exp sep [...] 28 tablet, 0 Refills, Maintenance, 04/25/2114:22:00 EDT, [facility]/pharmacy #[id number], 166, cm, 04/25/21 13:44:00 EDT, Height, 66.8, kg, 10/31/20 23:17:00 EST, Dry Weight Start Date: 04/25/21 Stop Date: 05/09/21 Status: Ordered gabapentin 300 mg oral capsule 1, capsule, By Mouth, Daily, for 90 days, # 90 capsule, Refills 3, Tot. Refills 3, Physician Stop 09/29/22 11:23:00 EST, 10/04/21 11:23:00 EST, Route to Pharmacy Electronically, [facility]/pharmacy #[id number], 166, cm, 10/04/21 11:05:00 EST, Height, [...] 11:26:00 EST, 10/04/21 11:26:00 EST, REC Powder, [facility]/pharmacy #[id number], Partial fill upon patient request if the prescription is for a schedule II opioid drug... Start Date: 10/04/21 Stop Date: 10/04/22 Status: Ordered Paxlovid 150 mg-100 mg (150 mg-100 mg Dose) oral tablet See Instructions, 3 tablets by mouth twice daily for five days; normal g.f.r., # 30 each, 0 Refills, Maintenance, 03/11/22 9:22:00 EDT, [facility] #[id number], Partial fill upon patient request if the prescription is for a schedule II opioid drug., 160, c... Start Date: 03/11/22 Status: Ordered SEROquel 50 mg oral tablet 1 tablet = 50 mg, By Mouth, 2 times a day, PRN anxiety or sleep, 0 Refills, Maintenance, 10/31/20 23:30:00 EST, Partial fill upon patient request if the prescription is for a schedule II opioid drug. Start Date: 10/31/20 Status: Ordered Tessalon Perles 100 mg oral capsule 1 capsule = 100 mg, By Mouth, 3 times a day, PRN Cough, # 30 capsule, 1 Refills, Acute 03/11/23 12:36:00 EDT, 03/11/22 12:36:00 EDT, Capsule, [facility]/pharmacy #[id number], Partial fill upon patient request if the prescription is for a schedule II opioid drug.,... Start Date: 03/11/22 Stop Date: 03/11/23 Status: Ordered Problem List Condition Effective Dates [...] 74% ( crippled ) on 12/08/17; initial [place]: 14 on 12/08/17 2SOAPP-R: 38 on 12/08/17 3Pain relevant problem list includes: See below [id number] Social History Social History Type Response Tobacco Use: 4 or less cigar ettes(less than 1/4 pack)/day in last 30 days. Sex
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
--- OUTSIDE RECORDS SUMMARY | 2024-03-12 04:35 | XMS_ITS | Continuity of Care Document ---
Author Organization [facility] Marlyn emmanuel Address [address] [place] [address] [address] [place] [address]- Care Team Providers Care Park Services Specialist Name Role Phone Fan Villalpando MD Primary Care Physician [facility] Date[facility]s): 02/11/22 - 03/13/22 [facility] [address] [place], [place] [address] Attending Physician: AdmJosefina rodriguez Admitting Physician: AdmtrJosefina Referring Physician: Admtr, Ar8 Allergies, Adverse Reactions, Alerts No Known Allergies Immunizations Given and Recorded Vaccine Date Status Refusal Reason influenza virus vaccine, inactivated 06/02/20 Tyrone rded influenza virus vaccine, inactivated 1 07/15/18 Gi paulino influenza virus vaccine, inactivated 08/24/14 Give n influenza virus vaccine, inactivated 07/17/12 Give n tetanus/diphtheria/pertussis, acel(Tdap) 04/03/19 Given tetanus/diphtheria/pertussis, acel(Tdap) 2 10/15/18 Given pneumococcal 23-valent vaccine 3 07/22/09 Given 1Result Comment: [07/15/2018] [id number] 2Result Comment: [10/15/2018] [facility]#[id number] 3Result Comment: lot # [id number] exp sep [...] 28 tablet, 0 Refills, Maintenance, 04/25/2114:22:00 EDT, [facility]/pharmacy #[id number], 166, cm, 04/25/21 13:44:00 EDT, Height, 66.8, kg, 10/31/20 23:17:00 EST, Dry Weight Start Date: 04/25/21 Stop Date: 05/09/21 Status: Ordered gabapentin 300 mg oral capsule 1, capsule, By Mouth, Daily, for 90 days, # 90 capsule, Refills 3, Tot. Refills 3, Physician Stop 09/29/22 11:23:00 EST, 10/04/21 11:23:00 EST, Route to Pharmacy Electronically, [facility]/pharmacy #[id number], 166, cm, 10/04/21 11:05:00 EST, Height, [...] 11:26:00 EST, 10/04/21 11:26:00 EST, REC Powder, [facility]/pharmacy #[id number], Partial fill upon patient request if [...] 03/11/23 12:36:00 EDT, 03/11/22 12:36:00 EDT, Capsule, [id number], Partial fill upon patient request [...] 74% ( crippled ) on 12/08/17; initial [place]: 14 on 12/08/17 2SOAPP-R: 38 on 12/08/17 3Pain relevant problem list includes: See below [id number] Social History Social History Type Response Tobacco Use: 4 or less cigar ettes(less than 1/4 pack)/day in last 30 days. Sex
--- OUTSIDE RECORDS SUMMARY | 2024-03-12 04:35 | XMS_ITS | Continuity of Care Document ---
Author Organization [facility] Address [address] [place] [address]- Care Team Providers Care Nuclear Spectroscopist Name Role Phone Drew Barr MD Primary Care Physician [phone] Encounter [facility] Date(s): 02/28/20 - 03/29/20 [facility] [address] [place] [address]- [facility] Allergies, Adverse Reactions, Alerts Substance Reaction Severity [...] [facility]#[id number] 2Result Comment: [07/15/2018] [id number] 3Result Comment: lot # [id number] exp sep 21 2010 Medications duloxetine 60 mg oral enteric coated capsule [...] 11/03/19 12:18:00 EST, Route to Pharmacy Electronically, [facility]... Start Date: 11/03/19 Status: Ordered gabapentin 300 mg oral capsule See Instructions, Take 1 cap TID. qHS dosage to be combined with 400 mg for an evening total of 700mg., # 90 capsule, Refills 5, Tot. Refills 5, Maintenance, 03/02/20 11:06:00 EDT, Instructions Replace Required Details, Route to Pharmacy [facility]... Start Date: 03/02/20 Status: Ordered gabapentin 400 mg oral capsule 400 mg, 1, capsule, By Mouth, Daily at bedtime, Take with 300 mg for total of 700 mg q HS, # 30 capsule, Refills 5, Tot. Refills 5, Maintenance, 02/23/20 12:22:00 EDT, Route to Pharmacy Electronically, [facility] #[id number], 160, cm, 10/07/19 10... Start Date: 02/23/20 Status: Ordered KlonoPIN 1 mg oral tablet 1 tablet = 1 mg, By Mouth, 3 times a day, # 24 tablet, 0 Refills, Maintenance, 05/15/18 9:44:32 EDT, Tablet Start Date: 05/15/18 Status: Ordered lamotrigine 25 mg oral tablet 50 mg, 2, tablet, By Mouth, Daily, # 60 tablet, Refills 2, Tot. 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 Sex
--- OUTSIDE RECORDS SUMMARY | 2024-03-12 04:35 | XMS_ITS | Continuity of Care Document ---
Author Organization [facility] Address [address] [place] [address] [address] [place] [address]- Care Team Providers Care Stonemason Apprentice Name Role Phone Drew Barr MD Primary Care Physician [facility] 08[facility]19 - 08/13/19 [facility] [address] [place] [address]- [facility] Attending Physician: Admtr, Josefina Admitting Physician: AdmtrJosefina Referring Physician: Admtr, Ar8 Allergies, Adverse Reactions, Alerts Substance Reaction Severity Status NKA Active Immunizations Given and Recorded Vaccine Date Status Refusal Reason tetanus/diphtheria/pertussis, acel(Tdap) 04/03/19 Given tetanus/diphtheria/pertussis, acel(Tdap) 1 10/15/18 Given influenza virus vaccine, inactivated 2 07/15/18 Gi paulino influenza virus vaccine, inactivated 08/24/14 Give n influenza virus vaccine, inactivated 07/17/12 Give n pneumococcal 23-valent vaccine 3 07/22/09 Given 1Result Comment: [10/15/2018] [facility]#[id number] 2Result Comment: [07/15/2018] [id number] 3Result Comment: lot # [id number] exp sep [...] 03/03/19 7:19:09 EDT, Route to Pharmacy Electronically, [id number]... Start Date: 03/03/19 Status: Ordered KlonoPIN 1 [...] 01/19/19 10:14:48 EDT, Route to Pharmacy Electronically, [id number], [facility] [id number] Start Date: 01/19/19 Status: Ordered Multivitamin By Mouth, Daily, 0 Refills, Maintenance, 08/24/14 13:17:31 Start Date: 08/24/14 Status: Ordered nicotine 14 mg/24 hr transdermal film, extended release See Instructions, # 28 patch, APPLY 1 PATCH TOPICALLY ONCE DAILY, [facility] #[id number] Start Date: 04/05/19 Status: Ordered Seroquel 50 [...] 74% ( crippled ) on 12/08/17; initial [place]: 14 on 12/08/17 2SOAPP-R: 38 on 12/08/17 3Pain relevant problem list includes: See below 87727 Social History Social History Type Response Tobacco Use: 4 or less cigar ettes(less than 1/4 pack)/day in last 30 days. Sex
--- OUTSIDE RECORDS SUMMARY | 2024-03-12 04:35 | XMS_ITS | Continuity of Care Document ---
Author Organization [facility] Address [address] [place] [address]- Care Team Providers Care Claims Analyst Name Role Phone Drew Barr MD Primary Care Physician [facility] Date[facility]s): 07/04/20 - 07/11/20 [facility] [address] [place] [address]- Attending Physician: Sandra Virgen MD Referring Physician: Drew Barr MD Allergies, Adverse Reactions, Alerts Substance Reaction Severity Status NKA Active Immunizations Given and Recorded Vaccine Date Status Refusal Reason tetanus/diphtheria/pertussis, acel(Tdap) 04/03/19 Given tetanus/diphtheria/pertussis, acel(Tdap) 1 10/15/18 Given influenza virus vaccine, inactivated 2 07/15/18 Gi paulino influenza virus vaccine, inactivated 08/24/14 Give n influenza virus vaccine, inactivated 07/17/12 Give n pneumococcal 23-valent vaccine 3 07/22/09 Given 1Result Comment: [10/15/2018] [facility]#[id number] 2Result Comment: [07/15/2018] [id number] 3Result Comment: lot # [id number] exp sep [...] 11/03/19 12:18:00 EST, Route to Pharmacy Electronically, [facility]... Start Date: 11/03/19 Status: Ordered gabapentin [...] 02/23/20 12:22:00 EDT, Route to Pharmacy Electronically, [facility] #07123, 160, cm, 10/07/19 10... Start Date: 02/23/20 [...] 01/19/19 10:14:48 EDT, Route to Pharmacy Electronically, [facility] [address] Start Date: 01/19/19 Status: Ordered PredniSONE By Mouth, Daily, 0 Refills, Maintenance, 07/04/20 11:22:00 EST Start Date: 07/04/20 Status: Ordered Seroquel 50 mg oral tablet 1 tablet = 50 mg, By Mouth, Daily at bedtime, 0 Refills, Maintenance, 08/24/14 13:17:23 EST Start Date: 08/24/14 Status: Ordered ZyrTEC 10 mg oral tablet = 10 mg, By Mouth, Daily, # 7 tablet, 0 Refills, Maintenance, 05/04/20 20:37:00 EDT, [facility] #80492, 160, cm, 10/07/19 10:44:00 EST, Height, 57.3, kg, 05/04/20 20:36:00 EDT, Dry Weight Start Date: 05/04/20 Status: Ordered Problem List Condition Effective Dates [...] 74% ( crippled ) on 12/08/17; initial [place]: 14 on 12/08/17 2SOAPP-R: 38 on 12/08/17 3Pain relevant problem list includes: See below 70980 Vital Signs Most recent to oldest [Reference Range]: 1 Height 160 cm (07/04/20 11:11 AM) Weight 59.8 kg (07/04/20 11:11 AM) Body Mass Index [18.5-24.99] 23.36 (07/04/20 11:11 AM) Blood Pressure [90-138/55-84 mm Hg] 129/ 90mm Hg (07/04/20 11:11 AM) Temperature [96.8-100.4 DegF] 96.9 DegF (07/04/20 11:11 AM) Blood pressure sites Arm, right (07/04/20 11:11 AM) Temperature Route Temporal (07/04/20 11:11 AM) Dry Weight 59.8 kg (07/04/20 11:11 AM) Weight Obtained Via Standing scale (07/04/20 11:11 AM) Dry Weight Obtained Via Standing scale (07/04/20 11:11 AM) Social History Social History Type Response Tobacco Use: 4 or less cigar ettes(less than 1/4 pack)/day in last 30 days. Sex
--- OUTSIDE RECORDS SUMMARY | 2024-03-12 04:35 | XMS_ITS | Continuity of Care Document ---
Author Organization [facility] Address [address] [place] [address]- Care Team Providers Care Canadian Bacon Tier Name Role Phone Drew Barr MD Primary Care Physician [facility] Date(s): 08/05/19 - 10/06/19 [facility] [address] [place] [address]- [facility] Attending Physician: Drew Barr MD Allergies, Adverse Reactions, Alerts Substance Reaction Severity Status NKA Active Immunizations Given and Recorded Vaccine Date Status Refusal Reason tetanus/diphtheria/pertussis, acel(Tdap) 04/03/19 Given tetanus/diphtheria/pertussis, acel(Tdap) 1 10/15/18 Given influenza virus vaccine, inactivated 2 07/15/18 Gi paulino influenza virus vaccine, inactivated 08/24/14 Give n influenza virus vaccine, inactivated 07/17/12 Give n pneumococcal 23-valent vaccine 3 07/22/09 Given 1Result Comment: [10/15/2018] [facility]#[id number] 2Result Comment: [07/15/2018] [id number] 3Result Comment: lot # [id number] exp sep 21 2010 Medications cephalexin monohydrate 500 mg oral capsule 1 capsule = 500 mg, By Mouth, 4 times a day, Please take entire course, # 148 capsule, 0 Refills, Acute 10/11/19 21:00:00 EST, 09/05/19 11:01:00 EST, Capsule, [facility] #[id number], 160, cm, 09/02/19 13:38:00 EST, Height, 62, [...] 01/19/19 10:14:48 EDT, Route to Pharmacy Electronically, [facility] [address] Start Date: 01/19/19 Status: Ordered Seroquel 50 [...] 74% ( crippled ) on 12/08/17; initial [place]: 14 on 12/08/17 2SOAPP-R: 38 on 12/08/17 3Pain relevant problem list includes: See below [id number] Social History Social History Type Response Tobacco Use: 4 or less cigar ettes(less than 1/4 pack)/day in last 30 days. Sex
--- OUTSIDE RECORDS SUMMARY | 2024-03-12 04:35 | XMS_ITS | Continuity of Care Document ---
Author Organization [facility] Address [address] [place] [address]- Care Team Providers Care Boring Mill Set Up Operator Vertical Name Role Phone Fan Villalpando MD Primary Care Physician [facility]s): 10/14/22 - 11/13/22 [facility] [address] [place], [place] [address] Attending Physician: Josefina Skelton Admitting Physician: AdmtrJosefina Referring Physician: AdmtrJosefina Allergies, Adverse Reactions, Alerts No Known Allergies [...] 1Result Comment: [10/15/2018] [facility]#[id number] 2Result Comment: [07/15/2018] [id number] 3Result Comment: lot # [id number] exp sep 21 2010 Medications Bactrim DS 800 mg-160 mg oral tablet 1 tablet, By Mouth, 2 times a day, for 10 days, # 20 tablet, 0 Refills, Acute 11/21/22 13:33:00 EDT, 11/11/22 13:33:00 EDT, Tablet, [facility] #[id number], Partial fill upon patient request if the prescription is for a schedule II opioid drug., 1 tablet B... Start Date: 11/11/22 Stop Date: 11/21/22 Status: Ordered betamethasone-clotrimazole 0.05%-1% topical cream 1 application, Topically, 2 times a day, PRN foot rash, # 15 Gm, 1 Refills, Acute 05/20/23 17:17:00EDT, 05/20/22 17:16:00 EDT, Cream, [facility] #[id number], Partial fill upon patient request if the [...] 74% ( crippled ) on 12/08/17; initial [place]: 14 on 12/08/17 2SOAPP-R: 38 on 12/08/17 3Pain relevant problem list includes: See below 74051 Social History Social History Type Response Tobacco Use: 4 or less cigar ettes(less than 1/4 pack)/day in last 30 days. Sex Patient Care team information Care Team Personnel Name: Deneen Guzman RN Position: [facility] RN Member Role: Primary Care Nurse Name: Mabel Quick RN Position: [facility] PCO RN Member Role: Primary Care Nurse Name: Fan Villalpando MD Position: [facility] Primary Care Physician Member Role: PCP Address: Address: [address] [place] [address] Adult & Pediatric Medicine [place], [place] [address] Name: Mely Castillo RN Position: [facility] RN Member Role: Primary Care Nurse Name: Torri Richards RN Position: [facility] RN Member Role: Primary Care Nurse Name: Evelyn Hall RN Position: [facility] RN Member Role: Primary Care Nurse Name: Spencer Willard Position: [facility] RN Member Role: Primary Care Nurse Name: Estephania Yu RN Position: [facility] RN Supv Member Role: Primary Care Nurse Name: Alix Milner RN Position: [facility] RN Member Role: Primary Care Nurse Name: Sandra Virgen MD Position: [facility] SOUND EFFECTS TECHNICIAN MD Member Role: Lifetime SOUND EFFECTS TECHNICIAN Physician Address: Address: [address] [place] [address]'s [facility] [place] [address]- Name: Rae Cruz RN Position: [facility] RN Member Role: Primary Care Nurse Name: Mary Jo Moeller RN Position: [facility] Onco RN Member Role: Primary Care Nurse Care Team Related Persons Name: NIC WOOD Address: home [address] [place] [address]
--- OUTSIDE RECORDS SUMMARY | 2024-03-12 04:35 | XMS_ITS | Continuity of Care Document ---
Author Organization [facility] Address [address] [place] [address]- Care Team Providers Care Tool And Die Inspector Name Role Phone Fan Villalpando MD Primary Care Physician [facility] Date[facility]s): 11/26/22 - 11/26/[address] [address]- Discharge Disposition: A-D/C Home Attending Physician: Yury Hannah MD Admitting Physician: Yury Hannah MD Referring Physician: Not on Staff, Referring MD Allergies, Adverse Reactions, Alerts No Known [...] vaccine 3 07/22/09 Given 1Result Comment: [10/15/2018] [facility]#[id number] 2Result Comment: [07/15/2018] [id number] 3Result Comment: lot # [id number] exp sep 21 2010 Medications betamethasone-clotrimazole 0.05%-1% topical cream 1 application, Topically, 2 times a day, PRN foot rash, # 15 Gm, 1 Refills, Acute 05/20/23 17:17:00EDT, 05/20/22 17:16:00 EDT, Cream, [id number], Partial fill upon patient request if the [...] 74% ( crippled ) on 12/08/17; initial [place]: 14 on 12/08/17 2SOAPP-R: 38 on 12/08/17 3Pain relevant problem list includes: See below 81295 Results Radiology Reports * Exam Date Time Procedure Performing Provider Status 11/26/22 8:57 AM Chest 2 Views Frontal and Lat Rimma Spain; Baldemar (Verified) Notes: (Chest 2 Views Frontal and Lat) Reason For Exam: Chest Pain;Other: RESULT: Chest 2 Views Frontal and Lat Chest 2 Views Frontal and Lat INDICATION: Chest pain, spots developing on body over the past few weeks. COMPARISON: Multiple prior radiographs, most recent 11/06/2022.. FINDINGS: LINES AND TUBES: None. LUNGS AND PLEURA: Clear lungs. Normal pulmonary vascularity. Unchanged scarring in the left base and costophrenic angle with a flattened configuration of the left hemidiaphragm. No pneumothorax. HEART, MEDIASTINUM AND RACHEL: Heart is normal in size. Normal mediastinal and hilar contour. BONES AND SOFT TISSUES: Bilateral upper chest dermal piercings. No acute osseous abnormality. IMPRESSION: No evidence of acute abnormality. I have personally reviewed the images and I agree with this report. WSN: [id number] Ordering Physician: Yury Hannah Dictated By: Massimo Britt MD Dictated Date/Time: 11/26/22 9:20 am Reviewed By: Jamin Ellison MD Signed By: Jamin Ellison MD Signed Date/Time: 11/26/22 9:25 am Transcribed By: CARMEN Transcribed Date/Time: 11/26/22 9:04 am Vital Signs Most recent to oldest [Reference Range]: 1 2 3 Oxygen Saturation [94-100 %] 100 % (11/26/22 8:57 AM) 98 % (11/26/22 8:17 AM) 98 % (11/26/22 5:54 AM) Pulse Rate [55-90 bpm] 69 bpm (11/26/22 8:57 AM) 72 bpm (11/26/22 8:17 AM) 75 bpm (11/26/22 5:54 AM) Blood Pressure [90-138/55-84 mm Hg] 103/77mm Hg (11/26/22 8:57 AM) 97/69mm Hg (11/26/22 8:17 AM) 152/85mm Hg *H* (11/26/22 5:54 AM) Respiratory Rate [16-30 br/min] 12 br/min *L* (11/26/22 8:57 AM) 14 br/min *L* (11/26/22 2:18 AM) Temperature [96.8-100.4 DegF] 97.5 DegF (11/26/22 8:57 AM) 97.9 DegF (11/26/22 8:17 AM) 98.3 DegF (11/26/22 5:54 AM) Mode of Delivery (Oxygen) Room air (11/26/22 8:57 AM) Room air (11/26/22 8:17 AM) Room air (11/26/22 2:18 AM) Blood pressure sites Arm, left (11/26/22 8:57 AM) Arm, left (11/26/22 8:17 AM) Arm, left (11/26/22 5:54 AM) Temperature Route Oral (11/26/22 8:57 AM) Oral (11/26/22 8:17 AM) Oral (11/26/22 5:54 AM) Social History Social History Type Response Tobacco Use: 4 or less cigar ettes(less than 1/4 pack)/day in last 30 days. Sex Note * Woody David DO: PERFORM, SIGN, VERIFY Event Display: Patient Education Handout Authored Date: * AMANDEEP aCrdoso S: TRANSCRIBE Jamin Ellison MD: VERIFY Denver Massimo JOSE: SIGN Event Display: Result: Authored Date: Chest 2 Views Frontal and Lat INDICATION: Chest pain, spots developing on body over the past few weeks. COMPARISON: Multiple prior radiographs, most recent 11/06/2022.. FINDINGS: LINES AND TUBES: None. LUNGS AND PLEURA: Clear lungs. Normal pulmonary vascularity. Unchanged scarring in the left base and costophrenic angle with a flattened configuration of the left hemidiaphragm. No pneumothorax. HEART, MEDIASTINUM AND RACHEL: Heart is normal in size. Normal mediastinal and hilar contour. BONES AND SOFT TISSUES: Bilateral upper chest dermal piercings. No acute osseous abnormality. IMPRESSION: No evidence of acute abnormality. I have personally reviewed the images and I agree with this report. WSN: [id number] Ordering Physician: Yury Hannah Dictated By: Massimo Britt MD Dictated Date/Time: 11/26/22 9:20 am Reviewed By: Jamin Ellison MD Signed By: Jamin Ellison MD Signed Date/Time: 11/26/22 9:25 am Transcribed By: CARMEN Transcribed Date/Time: 11/26/22 9:04 am Patient Care team information Care Team Personnel Name: Deneen Guzman RN Position: [facility] RN Member Role: Primary Care Nurse Name: Mabel Quick RN Position: [facility] PCO RN Member Role: Primary Care Nurse Name: Fan Villalpando MD Position: [facility] Primary Care Physician Member Role: PCP Address: Address: [address] [place] [address] Adult [place] [address]- Name: Mely Castillo RN Position: [facility] RN Member Role: Primary Care Nurse Name: Torri Richards RN Position: [facility] RN Member Role: Primary Care Nurse Name: Evelyn Hall RN Position: S RN Member Role: Primary Care Nurse Name: Spencer Willard Position: S RN Member Role: Primary Care Nurse Name: Estephania Yu RN Position: [facility] RN Supv Member Role: Primary Care Nurse Name: Alix Milner RN Position: [facility] RN Member Role: Primary Care Nurse Name: Sandra Virgen MD Position: [facility] CRUISE CONSULTANT MD Member Role: Lifetime CRUISE CONSULTANT Physician Address: Address: [address] [place], [place] [address]s [facility] [place] [address]- Name: Rae Cruz RN Position: S RN Member Role: Primary Care Nurse Name: Mary Jo Moeller RN Position: [facility] Onco RN Member Role: Primary Care Nurse Name: Yury Hannah MD Position: [facility] ED Medicine MD Member Role: Admitting Physician Address: Address: [address] [place] [address]- Name: Woody David DO Position: [facility] Resident Member Role: ED Resident Address: Address: [address] [place] [id number] Name: Maria Fernanda Melissa Position: [facility] ED TA [facility] Name: Osbaldo Smith RN Position: [facility] ED RN W/OE and Tasks Member Role: Patient Care Provider Care Team Related Persons Name: NIC WOOD Address: home [address] [place] [address]
--- OUTSIDE RECORDS SUMMARY | 2024-03-12 04:35 | XMS_ITS | Continuity of Care Document ---
Author Organization [facility] Address [address] [place] [address]- Care Team Providers Care Fibre Optic Cable Splicer Name Role Phone Drew Barr MD Primary Care Physician [phone] Encounter [facility] Date(s): 03/01/20 - 03/31/20 [facility] [address] [place] [address]- [facility] Allergies, Adverse Reactions, Alerts Substance Reaction Severity Status NKA Active Immunizations Given and Recorded Vaccine Date Status Refusal Reason tetanus/diphtheria/pertussis, acel(Tdap) 04/03/19 Given tetanus/diphtheria/pertussis, acel(Tdap) 1 10/15/18 Given influenza virus vaccine, inactivated 2 07/15/18 Gi paulino influenza virus vaccine, inactivated 08/24/14 Give n influenza virus vaccine, inactivated 07/17/12 Give n pneumococcal 23-valent vaccine 3 07/22/09 Given 1Result Comment: [10/15/2018] [facility]#[id number] 2Result Comment: [07/15/2018] [id number] 3Result Comment: lot # [id number] exp sep [...] 11/03/19 12:18:00 EST, Route to Pharmacy Electronically, [facility] Start Date: 11/03/19 Status: Ordered gabapentin [...] 02/23/20 12:22:00 EDT, Route to Pharmacy Electronically, [facility][id number], 160, cm, 10/07/19 10... Start Date: 02/23/20 [...] 01/19/19 10:14:48 EDT, Route to Pharmacy Electronically, [facility] [address] Start Date: 01/19/19 Status: Ordered Seroquel 50 [...] 74% ( crippled ) on 12/08/17; initial [place]: 14 on 12/08/17 2SOAPP-R: 38 on 12/08/17 3Pain relevant problem list includes: See below 74704 Social History Social History Type Response Tobacco Use: 4 or less cigar ettes(less than 1/4 pack)/day in last 30 days. Sex
--- OUTSIDE RECORDS SUMMARY | 2024-03-12 04:35 | XMS_ITS | Continuity of Care Document ---
Author Organization [facility] emmanuel Address [address] [place] [address] [address] [place] [address]- Care Team Providers Care Filter Tank Tender Helper Head Name Role Phone Fan Villalpando MD Primary Care Physician [facility] Date(s): 10/31/23 - 11/30/23 [facility] [address] [place] [address] Allergies, Adverse Reactions, Alerts No Known [...] 1Result Comment: [10/15/2018] [facility]#[id number] 2Result Comment: [07/15/2018] [id number] 3Result Comment: lot # [id number] exp sep 21 2010 Medications betamethasone-clotrimazole 0.05%-1% topical cream See Instructions, APPLY TOPICALLY 2 TIMES A DAY NEEDED FOR FOOT RASH, # 15 Gm, 5 Refills, Maintenance, 02/12/23 9:53:00 EDT, [facility], 30, APPLY TOPICALLY 2 TIMES A DAY [...] opioid drug. Start Date: 09/03/20 Status: Ordered Methadone See Instructions, 45mg by mouth in the morning and 25mg by mouth in the evening, 0 Refills, Maintenance, 08/21/23 11:14:00 EST, Partial fill upon patient request if the prescription is for a scheduleII opioid drug. Start Date: 08/21/23 Status: Ordered MiraLax oral powder for reconstitution = 17 Gm, By Mouth, Daily, dissolve in 4 to 8 oz of beverage, # 510 Gm, 0 Refills, Acute 08/21/24 11:21:00 EST, 08/21/23 11:20:00 EST, REC Powder, [facility]/pharmacy #[id number], Partial fill upon patient requestif the prescription is for a schedule II opioid krishna... Start Date: 08/21/23 Stop Date: 08/21/24 Status: Ordered multivitamin with minerals multivitamin with minerals, See Instructions, # 100 each, Refills 3, Tot. Refills 3, Maintenance, one tablet by mouth daily, 08/21/23 11:22:00 EST, Supply, 160, cm, 08/21/23 11:07:00 EST, Height, 62.7, kg, 08/21/23 11:07:00 EST, Dry Weight Start Date: 08/21/23 Status: Ordered mupirocin 2% topical ointment 1 application, Topically, 3 times a day, PRN skin sores, # 30 Gm, 5 Refills, Acute 08/21/24 11:28:00 EST, 08/21/23 11:28:00 EST, Ointment, [facility]/pharmacy #[id number], Partial fill upon patient request if theprescription is for a schedule II opioid drug., 1 a... Start Date: 08/21/23 Stop Date: 08/21/24 Status: Ordered SEROquel 50 mg oral tablet [...] 74% ( crippled ) on 12/08/17; initial [place]: 14 on 12/08/17 2SOAPP-R: 38 on 12/08/17 3Pain relevant problem list includes: See below [id number] Social History Social History Type Response Tobacco Use: 4 or less cigar ettes(less than 1/4 pack)/day in last 30 days. Sex Patient Care team information Care Team Personnel Name: Deneen Guzman RN Position: [facility] RN Member Role: Primary Care Nurse Name: Mabel Quick RN Position: [facility] MELODY Nurse Member Role: Primary Care Nurse Name: Fan Villalpando MD Position: [facility] Physician - Primary Care Member Role: PCP Address: Address: [address] [place] [address]- [place] Name: Mely Castillo RN Position: [facility] RN Member Role: Primary Care Nurse Name: Torri Richards RN Position: [facility] RN Member Role: Primary Care Nurse Name: Evelyn Hall RN Position: [facility] RN Member Role: Primary Care Nurse Name: Spencer Willard RN Position: [facility] RN Member Role: Primary Care Nurse Name: Alix Milner RN Position: [facility] RN Member Role: Primary Care Nurse Name: Collin Bolanos RN Position: [facility] SN RN Member Role: Primary Care Nurse Name: Sandra Virgen MD Position: [facility] DRIVER GUARD MD Member Role: Lifetime DRIVER GUARD Physician Address: Address: [address] [facility] Fruit Picker [place] [address]- [place] Name: Rae Cruz NP Position: [facility] PCO Associate Professional Member Role: Primary Care Nurse Address: Address: [address] [facility] [place] [place] [address]- [place] Name: Mary Jo Moeller RN Position: [facility] Onco RN Member Role: Primary Care Nurse Care Team Related Persons Name: NIC WOOD Address: home [address] [place] [address]
--- OUTSIDE RECORDS SUMMARY | 2024-03-12 04:35 | XMS_ITS | Continuity of Care Document ---
Author Organization [facility] Address [address] [place] [address]- Care Team Providers Care Bull Riveter Name Role Phone Fan Villalpando MD Primary Care Physician [facility] Date[facility]s): 02/17/23 - 03/19/23 [facility] [address] [place], [place] [address] Attending Physician: AdmJosefina rodriguez Admitting Physician: AdmtrJosefina [...] vaccine 3 07/22/09 Given 1Result Comment: [10/15/2018] [facility]#[id number] 2Result Comment: [07/15/2018] [id number] 3Result Comment: lot # [id number] exp sep 21 2010 Medications betamethasone-clotrimazole 0.05%-1% topical cream See Instructions, APPLY TOPICALLY 2 TIMES A DAY NEEDED FOR FOOT RASH, # 15 Gm, 5 Refills, Maintenance, 02/12/23 9:53:00 EDT, [facility], 30, APPLY TOPICALLY 2 TIMES A DAY [...] 74% ( crippled ) on 12/08/17; initial [place]: 14 on 12/08/17 2SOAPP-R: 38 on 12/08/17 3Pain relevant problem list includes: See below 95782 Social History Social History Type Response Tobacco Use: 4 or less cigar ettes(less than 1/4 pack)/day in last 30 days. Sex Laboratory * Event Display: Non BH Lab Results Authored Date: * Event Display: Non BH Lab Results Authored Date: * Event Display: Non BH Lab Results Authored Date: Radiology * Event Display: MRI Chest, Non- BH Authored Date: * Event Display: [place] Nuclear Medicine Authored Date: * Event Display: CT Scan Abdomen, Non- Authored Date: * Event Display: CT Scan Chest, Non- BH Authored Date: Patient Care team information Care Team Personnel Name: Deneen Guzman RN Position: [facility] RN Member Role: Primary Care Nurse Name: Mabel Quick RN Position: [facility] AMB Nurse Member Role: Primary Care Nurse Name: Fan Villalpando MD Position: [facility] Physician - Primary Care Member Role: PCP Address: Address: [address] [place] [address] Adult & [place] [address]- Name: Mely Castillo RN Position: [facility] RN Member Role: Primary Care Nurse Name: Torri Richards RN Position: [facility] RN Member Role: Primary Care Nurse Name: Evelyn Hall RN Position: [facility] RN Member Role: Primary Care Nurse Name: Spencer Willard Position: [facility] RN Member Role: Primary Care Nurse Name: Estephania Yu RN Position: [facility] RN Supv Member Role: Primary Care Nurse Name: Alix Milner RN Position: [facility] RN Member Role: Primary Care Nurse Name: Collin Bolanos RN Position: [facility] SN RN Member Role: Primary Care Nurse Name: Sandra Virgen MD Position: [facility] CHRONOMETER ADJUSTER MD Member Role: Lifetime CHRONOMETER ADJUSTER Physician Address: Address: [address] [place] [address]'s [facility] Biostatistics [place] [address]- Name: Rae Cruz RN Position: [facility] RN Member Role: Primary Care Nurse Name: Mary Jo Moeller RN Position: [facility] Onco RN Member Role: Primary Care Nurse Care Team Related Persons Name: NIC WOOD Address: [address] [address]
--- OUTSIDE RECORDS SUMMARY | 2024-03-12 04:35 | XMS_ITS | Continuity of Care Document ---
Author Organization [facility] Address [address] [place] [address]- Care Team Providers Care Care Transitions Nurse Name Role Phone Sarah Padilla MD Primary Care Physician Encounter [facility] Date(s): 04/10/21 - 04/17/21 [facility] [address] [place] [address] Attending Physician: Not on Staff, Attending MD Referring Physician: Sandra Virgen MD Allergies, Adverse Reactions, Alerts Substance Reaction Severity Status NKA Active Immunizations Given and Recorded Vaccine Date Status Refusal Reason tetanus/diphtheria/pertussis, acel(Tdap) 04/03/19 Given tetanus/diphtheria/pertussis, acel(Tdap) 1 10/15/18 Given influenza virus vaccine, inactivated 2 07/15/18 Gi paulino influenza virus vaccine, inactivated 08/24/14 Give n influenza virus vaccine, inactivated 07/17/12 Give n pneumococcal 23-valent vaccine 3 07/22/09 Given 1Result Comment: [10/15/2018] [facility]#[id number] 2Result Comment: [07/15/2018] [id number] 3Result Comment: lot # [id number] exp sep 21 2010 Medications apixaban 5 mg oral tablet See Instructions, 2 tablet By Mouth 2 times a day for 8 doses and then 1 tablet 2 times a day thereafter, # 48 tablet, 2 Refills, Maintenance, 11/03/20 12:54:00 EST, Tablet, [facility],Partial fill upon patient request [...] 11/03/19 12:18:00 EST, Route to Pharmacy Electronically, [facility] Start Date: 11/03/19 Status: Ordered Flagyl 500 [...] Maintenance, 03/27/2116:37:00 EDT, Route to Pharmacy Electronically, [facility]/pharmacy #[id number], patient takes this dose in AM -with [...] 02/15/21 10:37:00 EDT, Route to Pharmacy Electronically, [facility] #[id number], 160, cm, 11/03/20 7:... Start Date: 02/15/21 [...] 74% ( crippled ) on 12/08/17; initial [place]: 14 on 12/08/17 2SOAPP-R: 38 on 12/08/17 3Pain relevant problem list includes: See below 61648 Social History Social History Type Response Tobacco Use: 4 or less cigar ettes(less than 1/4 pack)/day in last 30 days. Sex
--- OUTSIDE RECORDS SUMMARY | 2024-03-12 04:35 | XMS_ITS | Continuity of Care Document ---
Author Organization [facility] Address [address] [place] [address]- Care Team Providers Care Commercial Baker Helper Name Role Phone Fan Villalpando MD Primary Care Physician Encounter [facility] Date(s): 12/11/23 - 12/18/23 [facility] [address] [place] [address]- Attending Physician: Ale Nguyen MD Referring Physician: Fan Villalpando MD Allergies, Adverse [...] vaccine 3 07/22/09 Given 1Result Comment: [10/15/2018] [facility]#[id number] 2Result Comment: [07/15/2018] [id number] 3Result Comment: lot # [id number] exp sep 21 2010 Medications betamethasone-clotrimazole 0.05%-1% topical cream See Instructions, APPLY TOPICALLY 2 TIMES A DAY NEEDED FOR FOOT RASH, # 15 Gm, 5 Refills, Maintenance, 02/12/23 9:53:00 EDT, [facility] 340[facility], 30, APPLY TOPICALLY 2 TIMES A DAY NEEDED FOR FOOT RASH, 160, cm, 01/07/23 4:00:00 EDT, Height, 61, kg,... Start Date: 02/12/23 Status: Ordered clonazePAM 1 mg oral tablet 1 tablet = 1 mg, By Mouth, 2 times a day, PRN anxiety, 0 Refills, Maintenance, 09/03/20 14:19:00 EST, Tablet, [...] 45mg by mouth in the morning and 35mg by mouth in the evening, 0 Refills, Maintenance, 08/21/23 11:14:00 EST, Partial fill upon patient request if the prescription is for a scheduleII opioid drug. Start Date: 08/21/23 Status: Ordered MiraLax oral powder for reconstitution = 17 Gm, By Mouth, Daily, dissolve in 4 to 8 oz of beverage, # 510 Gm, 0 Refills, Acute 08/21/24 11:21:00 EST, 08/21/23 11:20:00 EST, REC Powder, [facility]/pharmacy #[id number], Partial fill upon patient requestif the prescription [...] 08/21/24 11:28:00 EST, 08/21/23 11:28:00 EST, Ointment, [facility]/pharmacy #[id number], Partial fill upon patient request [...] 74% ( crippled ) on 12/08/17; initial [place]: 14 on 12/08/17 2SOAPP-R: 38 on 12/08/17 3Pain relevant problem list includes: See below [id number] Vital Signs Most recent to oldest [Reference Range]: 1 Height 160 cm (12/11/23 11:04 AM) Weight 64 kg (12/11/23 11:04 AM) Oxygen Saturation [94-100 %] 98 % (12/11/23 11:04 AM) Pulse Rate [55-90 bpm] 85 bpm (12/11/23 11:04 AM) Body Mass Index [18.5-24.99 kg/m2] 25 kg /m2 *H* (12/11/23 11:04 AM) Blood Pressure [90-138/55-84 mm Hg] 122/ 94mm Hg (12/11/23 11:04 AM) Respiratory Rate [16-30 br/min] 16 br/mi n (12/11/23 11:04 AM) Temperature [96.8-100.4 DegF] 96.8 DegF (12/11/23 11:04 AM) Mode of Delivery (Oxygen) Room air (12/11/23 11:04 AM) Blood pressure sites Arm, right (12/11/23 11:04 AM) Temperature Route Oral (12/11/23 11:04 AM) Dry Weight 64 kg (12/11/23 11:04 AM) Weight Obtained Via Patient/family state d (12/11/23 11:04 AM) Dry Weight Obtained Via Patient/family s tated (12/11/23 11:04 AM) Social History Social History Type Response Tobacco Use: 4 or less cigar ettes(less than 1/4 pack)/day in last 30 days. Sex Patient Care team information Care Team Personnel Name: Deneen Guzman RN Position: [facility] RN Member Role: Primary Care Nurse Name: Mabel Quick RN Position: [facility] AMB Nurse Member Role: Primary Care Nurse Name: Fan Villalpando MD Position: [facility] Physician - Primary Care Member Role: PCP Address: Address: [address] [place] [address] Adult & Pediatric Medicine [address] Name: Mely Castillo RN Position: [facility] RN Member Role: Primary Care Nurse Name: Torri Richards RN Position: [facility] RN Member Role: Primary Care Nurse Name: Evelyn Hall RN Position: [facility] RN Member Role: Primary Care Nurse Name: Spencer Willard RN Position: [facility] RN Member Role: Primary Care Nurse Name: Alix Milner RN Position: [facility] RN Member Role: Primary Care Nurse Name: Collin Bolanos RN Position: [facility] SN RN Member Role: Primary Care Nurse Name: Sandra Virgen MD Position: [facility] EXPEDITER SERVICE ORDER MD Member Role: Lifetime EXPEDITER SERVICE ORDER Physician Address: Address: [address] [place] [address]- [place] Name: Mary Jo Garcia RN Position: [facility] Onco RN Member Role: Primary Care Nurse Name: Anthony MULLINS, Rae Pyle Position: [facility] PCO Associate Professional Member Role: Primary Care Nurse Address: Address: [address] [place] [address] Medical [facility] [place] [address]- Care Team Related Persons Name: NIC WOOD Address: home [address] [place] [address]
--- OUTSIDE RECORDS SUMMARY | 2024-03-12 04:35 | XMS_ITS | Continuity of Care Document ---
Author Organization [facility] Address [address] [place] [address]- Care Team Providers Care Button Bradder Name Role Phone Fan Villalpando MD Primary Care Physician [phone] Encounter [facility] Date(s): 10/29/21 - 11/05/21 [facility] [address] [place], [place] [address] Attending Physician: Fan Villalpando MD Allergies, Adverse Reactions, Alerts No Known Allergies Immunizations Given and Recorded Vaccine Date Status Refusal Reason influenza virus vaccine, inactivated 06/02/20 Tyorne rded influenza virus vaccine, inactivated 1 07/15/18 Gi paulino influenza virus vaccine, inactivated 08/24/14 Give n influenza virus vaccine, inactivated 07/17/12 Give n tetanus/diphtheria/pertussis, acel(Tdap) 04/03/19 Given tetanus/diphtheria/pertussis, acel(Tdap) 2 10/15/18 Given pneumococcal 23-valent vaccine 3 07/22/09 Given 1Result Comment: [07/15/2018] [id number] 2Result Comment: [10/15/2018] [facility]#[id number] 3Result Comment: lot # [id number] exp sep [...] 28 tablet, 0 Refills, Maintenance, 04/25/2114:22:00 EDT, [facility]/pharmacy #[id number], 166, cm, 04/25/21 13:44:00 EDT, Height, 66.8, kg, 10/31/20 23:17:00 EST, Dry Weight Start Date: 04/25/21 Stop Date: 05/09/21 Status: Ordered gabapentin 300 mg oral capsule 1, capsule, By Mouth, Daily, for 90 days, # 90 capsule, Refills 3, Tot. Refills 3, Physician Stop 09/29/22 11:23:00 EST, 10/04/21 11:23:00 EST, Route to Pharmacy Electronically, [facility]/pharmacy #[id number], 166, cm, 10/04/21 11:05:00 EST, Height, [...] 11:26:00 EST, 10/04/21 11:26:00 EST, REC Powder, [facility]/pharmacy #[id number], Partial fill upon patient request if [...] 74% ( crippled ) on 12/08/17; initial [place]: 14 on 12/08/17 2SOAPP-R: 38 on 12/08/17 3Pain relevant problem list includes: See below 606[address] Vital Signs Most recent to oldest [Reference Range]: 1 Height 166 cm (10/29/21 11:35 AM) Weight 66.2 kg (10/29/21 11:35 AM) Oxygen Saturation [94-100 %] 97 % (10/29/21 11:35 AM) Pulse Rate [55-90 bpm] 125 bpm *H* (10/29/21 11:35 AM) Body Mass Index [18.5-24.99] 24.02 (10/29/21 11:35 AM) Blood Pressure [90-138/55-84 mm Hg] 132/ 84mm Hg (10/29/21 11:35 AM) Blood pressure sites Arm, left (10/29/21 11:35 AM) Social History Social History Type Response Tobacco Use: 4 or less cigar ettes(less than 1/4 pack)/day in last 30 days. Sex
--- OUTSIDE RECORDS SUMMARY | 2024-03-12 04:35 | XMS_ITS | Continuity of Care Document ---
Author Organization [facility] Address [address] [place] [address]- Care Team Providers Care Funeral Home Attendant Name Role Phone Sarah Padilla MD Primary Care Physician [phone] [facility] 01/23[facility]21 - 02/22/21 [facility] [address] [place], [place] [address] Allergies, Adverse Reactions, Alerts Substance Reaction Severity Status NKA Active Immunizations Given and Recorded Vaccine Date Status Refusal Reason tetanus/diphtheria/pertussis, acel(Tdap) 04/03/19 Given tetanus/diphtheria/pertussis, acel(Tdap) 1 10/15/18 Given influenza virus vaccine, inactivated 2 07/15/18 Gi paulino influenza virus vaccine, inactivated 08/24/14 Give n influenza virus vaccine, inactivated 07/17/12 Give n pneumococcal 23-valent vaccine 3 07/22/09 Given 1Result Comment: [10/15/2018] [facility]#[id number] 2Result Comment: [07/15/2018] [id number] 3Result Comment: lot # [id number] exp sep 21 2010 Medications apixaban 5 mg oral tablet See Instructions, 2 tablet By Mouth 2 times a day for 8 doses and then 1 tablet 2 times a day thereafter, # 48 tablet, 2 Refills, Maintenance, 11/03/20 12:54:00 EST, Tablet, [facility],Partial fill upon patient request [...] 11/03/19 12:18:00 EST, Route to Pharmacy Electronically, [facility]... Start Date: 11/03/19 Status: Ordered gabapentin 400 mg oral capsule 400 mg, 1, capsule, By Mouth, Daily at bedtime, Take with 300 mg for total of 700 mg q HS, # 30 capsule, Refills 5, Tot. Refills 5, Maintenance, 02/15/21 10:37:00 EDT, Route to Pharmacy Electronically, [facility] #[id number], 160, cm, 11/03/20 7:... Start Date: 02/15/21 [...] 74% ( crippled ) on 12/08/17; initial [place]: 14 on 12/08/17 2SOAPP-R: 38 on 12/08/17 3Pain relevant problem list includes: See below 72857 Social History Social History Type Response Tobacco Use: 4 or less cigar ettes(less than 1/4 pack)/day in last 30 days. Sex
--- OUTSIDE RECORDS SUMMARY | 2024-03-12 04:36 | XMS_ITS | Continuity of Care Document ---
Author Organization [facility] Address [address] [place] [address]- Care Team Providers Care Bolt Threader Name Role Phone Fan Villalpando MD Primary Care Physician [facility] Date[facility]s): 10/02/22 - 11/01/22 [facility] [address] [place], [place] [address] Attending Physician: Josefina Skelton Admitting Physician: Admtr, Josefina Referring Physician: Admtr, Ar8 Allergies, Adverse Reactions, [...] vaccine 3 07/22/09 Given 1Result Comment: [10/15/2018] [facility]#[id number] 2Result Comment: [07/15/2018] [id number] 3Result Comment: lot # [id number] exp sep 21 2010 Medications betamethasone-clotrimazole 0.05%-1% topical cream 1 application, Topically, 2 times a day, PRN foot rash, # 15 Gm, 1 Refills, Acute 05/20/23 17:17:00EDT, 05/20/22 17:16:00 EDT, Cream, [facility]/pharmacy #[id number], Partial fill upon patient request if the [...] Not Route Start Date: 10/04/21 Status: Ordered mupirocin 2% topical ointment 1 application, Topically, 3 times a day, PRN skin sores, # 30 Gm, 1 Refills, Acute 10/02/23 14:47:00 EST, 10/02/22 14:47:00 EST, Ointment, [facility]/pharmacy #[id number], Partial fill upon patient request if theprescription is for a schedule II opioid drug., 1 a... Start Date: 10/02/22 Stop Date: 10/02/23 Status: Ordered SEROquel 50 mg oral tablet [...] 74% ( crippled ) on 12/08/17; initial [place]: 14 on 12/08/17 2SOAPP-R: 38 on 12/08/17 3Pain relevant problem list includes: See below 10689 Social History Social History Type Response Tobacco Use: 4 or less cigar ettes(less than 1/4 pack)/day in last 30 days. Sex Note * Event Display: Non BH Lab Results Authored Date: * Event Display: Non BH Lab Results Authored Date: * Event Display: Non BH Lab Results Authored Date: * Event Display: MRI Chest, Non- BH Authored Date: * Event Display: [place] Nuclear Medicine Authored Date: * Event Display: CT Scan Abdomen, Non- BH Authored Date: * Event Display: CT Scan Chest, Non- Authored Date: Patient Care team information Care Team Personnel Name: Deneen Guzman RN Position: [facility] RN Member Role: Primary Care Nurse Name: Mabel Quick RN Position: [facility] PCO RN Member Role: Primary Care Nurse Name: Fan Villalpando MD Position: [facility] Primary Care Physician Member Role: PCP Address: Address: [address] [facility] Adult [place] [address]- [place] Name: Mely Casitllo RN Position: S RN Member Role: Primary Care Nurse Name: Torri Richards RN Position: S RN Member Role: Primary Care Nurse Name: Evelyn Hall RN Position: S RN Member Role: Primary Care Nurse Name: Spencer Willard Position: S RN Member Role: Primary Care Nurse Name: Estephania Yu RN Position: [facility] RN Supv Member Role: Primary Care Nurse Name: Alix Milner RN Position: S RN Member Role: Primary Care Nurse Name: Sandra Virgen MD Position: [facility] CNC SERVICE ENGINEER MD Member Role: Lifetime CNC SERVICE ENGINEER Physician Address: Address: [address] [facility] [place] [address]- [place] Name: Rae Cruz RN Position: S RN Member Role: Primary Care Nurse Name: Mary Jo Moeller RN Position: [facility] Onco RN Member Role: Primary Care Nurse Care Team Related Persons Name: ISRAEL NIC Address: home [address] [place] [address]
--- OUTSIDE RECORDS SUMMARY | 2024-03-12 04:36 | XMS_ITS | Continuity of Care Document ---
Author Organization [facility] Address [address] [place] [address]- Care Team Providers Care Intake Counselor Name Role Phone Drew Barr MD Primary Care Physician [phone] Encounter [facility] Date(s): 02/25/20 - 03/26/20 [facility] [address] [place] [address]- [facility] Attending Physician: Josefina Skelton Admitting Physician: AdmJosefina rodriguez Referring Physician: AdmtrJosefina Allergies, Adverse Reactions, Alerts Substance Reaction Severity Status NKA Active Immunizations Given and Recorded Vaccine Date Status Refusal Reason tetanus/diphtheria/pertussis, acel(Tdap) 04/03/19 Given tetanus/diphtheria/pertussis, acel(Tdap) 1 10/15/18 Given influenza virus vaccine, inactivated 2 07/15/18 Gi paulino influenza virus vaccine, inactivated 08/24/14 Give n influenza virus vaccine, inactivated 07/17/12 Give n pneumococcal 23-valent vaccine 3 07/22/09 Given 1Result Comment: [10/15/2018] [facility]#[id number] 2Result Comment: [07/15/2018] [id number] 3Result Comment: lot # [id number] exp sep [...] 11/03/19 12:18:00 EST, Route to Pharmacy Electronically, [facility]... Start Date: 11/03/19 Status: Ordered gabapentin 300 [...] 02/23/20 12:22:00 EDT, Route to Pharmacy Electronically, [facility] #[id number], 160, cm, 10/07/19 10... Start Date: 02/23/20 [...] 01/19/19 10:14:48 EDT, Route to Pharmacy Electronically, [facility] Start Date: 01/19/19 Status: Ordered Seroquel 50 [...] 74% ( crippled ) on 12/08/17; initial [place]: 14 on 12/08/17 2SOAPP-R: 38 on 12/08/17 3Pain relevant problem list includes: See below 83714 Social History Social History Type Response Tobacco Use: 4 or less cigar ettes(less than 1/4 pack)/day in last 30 days. Sex
--- OUTSIDE RECORDS SUMMARY | 2024-03-12 04:36 | XMS_ITS | Continuity of Care Document ---
Author Organization [facility] Address [address] [place] [address]- Care Team Providers Care Through Freight Engineer Name Role Phone Fan Villalpando MD Primary Care Physician Encounter [facility] Date(s): 01/28/24 - 02/27/24 [facility] [address] [place], [place] [address] Allergies, Adverse Reactions, Alerts No Known Allergies [...] 3 07/22/09 Given 1Result Comment: [10/15/2018] [facility]#[id number] 2Result Comment: [07/15/2018] [id number] 3Result Comment: lot # [id number] exp sep 21 2010 Medications betamethasone-clotrimazole 0.05%-1% topical cream See Instructions, APPLY TOPICALLY 2 TIMES A DAY NEEDED FOR FOOT RASH, # 15 Gm, 5 Refills, Maintenance, 02/12/23 9:53:00 EDT, [facility] 544[facility], 30, APPLY TOPICALLY 2 TIMES A DAY [...] opioid drug. Start Date: 09/03/20 Status: Ordered GaviLAX oral powder for reconstitution = 17 Gm, By Mouth, Daily, DISSOLVE IN 4 TO 8 OZ OF BEVERAGE, # 510 Gm, 5 Refills, Maintenance, 02/27/24 7:53:00 EDT, [facility] STORE 98326, 30, GIVE 17 GM BY MOUTH DAILY. DISSOLVE IN 4 TO 8 OZ OF BEVERAGE,160, cm, 12/24/23 18:47:00 EDT, Height, 64, kg, 04/... Start Date: 02/27/24 Status: Ordered Methadone See Instructions, 45mg by mouth in the morning and 35mg by mouth in the evening, 0 Refills, Maintenance, 08/21/23 11:14:00 EST, Partial fill upon patient request if the prescription is for a scheduleII opioid drug. Start Date: 08/21/23 Status: Ordered multivitamin with minerals multivitamin with [...] 08/21/24 11:28:00 EST, 08/21/23 11:28:00 EST, Ointment, [facility]/pharmacy #[id number], Partial fill upon patient [...] Active History of opioid abuse Confirmed Active History of Hodgkin's lymphoma Confirmed Active TB lung, latent Confirmed [...] 74% ( crippled ) on 12/08/17; initial [place]: 14 on 12/08/17 2SOAPP-R: 38 on 12/08/17 3Pain relevant problem list includes: See below [id number] Social History Social History Type Response Tobacco Use: 4 or less cigar ettes(less than 1/4 pack)/day in last 30 days. Sex Patient Care team information Care Team Personnel Name: Deneen Guzman RN Position: S RN Member Role: Primary Care Nurse Name: Mabel Quick RN Position: [facility] Nurse Member Role: Primary Care Nurse Name: Fan Villalpando MD Position: [facility] Physician - Primary Care Member Role: PCP Address: Address: [address] [place] [address]- [place] Name: Mely Castillo RN Position: [facility] RN Member Role: Primary Care Nurse Name: Evelyn Hall RN Position: [facility] RN Member Role: Primary Care Nurse Name: Spencer Willard RN Position: [facility] RN Member Role: Primary Care Nurse Name: Alix Milner RN Position: [facility] RN Member Role: Primary Care Nurse Name: Collin Bolanos RN Position: [facility] SN RN Member Role: Primary Care Nurse Name: Torri Kirkpatrick RN Position: [facility] RN Member Role: Primary Care Nurse Name: Sandra Virgen MD Position: [facility] NON DESTRUCTIVE EVALUATION SPECIALIST MD Member Role: Lifetime NON DESTRUCTIVE EVALUATION SPECIALIST Physician Address: Address: [address] [facility] [place] [address]- [place] Name: Mary Jo Garcia RN Position: [facility] Onco RN Member Role: Primary Care Nurse Name: Rae Cruz NP Position: [facility] PCO Associate Professional Member Role: Primary Care Nurse Address: Address: [address] [facility] [place] [address]- [place] Care Team Related Persons Name: NIC WOOD Address: home [address] [place] [address]
--- OUTSIDE RECORDS SUMMARY | 2024-03-12 04:36 | XMS_ITS | Continuity of Care Document ---
Author Organization [facility] Address [address] [place] [address]- Care Team Providers Care Web Content Specialist Name Role Phone Fan Villalpando MD Primary Care Physician [facility]counter [facility] Date(s): 11/11/22 - 12/11/22 [facility] [address] [place], [place] [address] Attending Physician: Josefina Skelton Admitting Physician: [...] vaccine 3 07/22/09 Given 1Result Comment: [10/15/2018] [facility]#[id number] 2Result Comment: [07/15/2018] [id number] 3Result Comment: lot # [id number] exp sep 21 2010 Medications betamethasone-clotrimazole 0.05%-1% topical cream 1 application, Topically, 2 times a day, PRN foot rash, # 15 Gm, 1 Refills, Acute 05/20/23 17:17:00EDT, 05/20/22 17:16:00 EDT, Cream, [id number], Partial fill upon patient request if the [...] 74% ( crippled ) on 12/08/17; initial [place]: 14 on 12/08/17 2SOAPP-R: 38 on 12/08/17 3Pain relevant problem list includes: See below 35803 Social History Social History Type Response Tobacco [...] Team Personnel Name: Deneen Guzman RN Position: [facility] RN Member Role: Primary Care Nurse Name: Mabel Quick RN Position: [facility] PCO RN Member Role: Primary Care Nurse Name: Fan Villalpando MD Position: [facility] Primary Care Physician Member Role: PCP Address: Address: [address] [place] [address] Adult [place] [address]- Name: Mely Castillo RN Position: [facility] RN Member Role: Primary Care Nurse Name: Torri Richards RN Position: S RN Member Role: Primary Care Nurse Name: Evelyn Hall RN Position: S RN Member Role: Primary Care Nurse Name: Spencer Willard Position: S RN Member Role: Primary Care Nurse Name: Estephania Yu RN Position: [facility] RN Supv Member Role: Primary Care Nurse Name: Alix Milner RN Position: S RN Member Role: Primary Care Nurse Name: Sandra Virgen MD Position: [facility] CONTRACT ADMINISTRATION SPECIALIST MD Member Role: Lifetime CONTRACT ADMINISTRATION SPECIALIST Physician Address: Address: [address] [place] [address]'s [facility] [place] [address]- Name: Rae Cruz RN Position: [facility] RN Member Role: Primary Care Nurse Name: Mary Jo Moeller RN Position: [facility] Onco RN Member Role: Primary Care Nurse Care Team Related Persons Name: NIC WOOD Address: home [address] [place] [address]
--- OUTSIDE RECORDS SUMMARY | 2024-03-12 04:36 | XMS_ITS | Continuity of Care Document ---
Author Organization [facility] Address [address] [place] [address]- Care Team Providers Care Music Coordinator Name Role Phone Fan Villalpando MD Primary Care Physician Encounter [facility] Date(s): 10/04/21 - 10/11/21 [facility] [address] [place], [place] [address] Encounter Diagnosis Bipolar disorder, curr episode depressed, severe, w/psychotic features(Discharge Diagnosis) - 10/04/21 Hodgkin lymphoma(Discharge Diagnosis) - 10/04/21 s/p Right tib/fib fracture with free flap repair.(Discharge Diagnosis) - 10/04/21 History of opioid abuse(Discharge Diagnosis) - 10/04/21 Attending Physician: Fan Villalpando MD Allergies, Adverse [...] vaccine 3 07/22/09 Given 1Result Comment: [07/15/2018] [id number] 2Result Comment: [10/15/2018] [facility]#[id number] 3Result Comment: lot # [id number] exp sep [...] 28 tablet, 0 Refills, Maintenance, 04/25/2114:22:00 EDT, [facility]/pharmacy #0859, 166, cm, 04/25/21 13:44:00 EDT, Height, 66.8, kg, 10/31/20 23:17:00 EST, Dry Weight Start Date: 04/25/21 Stop Date: 05/09/21 Status: Ordered gabapentin 300 mg oral capsule 1, capsule, By Mouth, Daily, for 90 days, # 90 capsule, Refills 3, Tot. Refills 3, Physician Stop 09/29/22 11:23:00 EST, 10/04/21 11:23:00 EST, Route to Pharmacy Electronically, [facility]/pharmacy #0859, 166, cm, 10/04/21 11:05:00 EST, Height, [...] 11:26:00 EST, 10/04/21 11:26:00 EST, REC Powder, [facility]/pharmacy #0871, Partial fill upon patient request if the [...] 74% ( crippled ) on 12/08/17; initial [place]: 14 on 12/08/17 2SOAPP-R: 38 on 12/08/17 3Pain relevant problem list includes: See below [id number] Diagnosis Diagnosis Type Effective Dates Health Status Cl inical Service Informant Bipolar disorder, curr episode depressed, severe, w/psychotic features Discharge Diagnosis 10/04/21 Hodgkin lymphoma Discharge Diagnosis 10/04/21 s/p Right tib/fib fracture with free flap repair. Discharge Diagnosis 10/04/21 History of opioid abuse Discharge Diagnosis 10/04/21 Vital Signs Most recent to oldest [Reference Range]: 1 Height 166 cm (10/04/21 11:05 AM) Weight 65.8 kg (10/04/21 11:05 AM) Oxygen Saturation [94-100 %] 98 % (10/04/21 11:05 AM) Pulse Rate [55-90 bpm] 74 bpm (10/04/21 11:05 AM) Body Mass Index [18.5-24.99] 23.88 (10/04/21 11:05 AM) Blood Pressure [90-138/55-84 mm Hg] 100/ 60mm Hg (10/04/21 11:05 AM) Blood pressure sites Arm, left (10/04/21 11:05 AM) Social History Social History Type Response Tobacco Use: 4 or less cigar ettes(less than 1/4 pack)/day in last 30 days. Sex
--- OUTSIDE RECORDS SUMMARY | 2024-03-12 04:36 | XMS_ITS | Continuity of Care Document ---
Author Organization [facility] Address [address] [place] [address]- Care Team Providers Care Centerpuncher Name Role Phone Drew Barr MD Primary Care Physician [phone] Encounter [facility] Date(s): 07/14/20 - 08/13/20 [facility] [address] [place], [place] [address] Allergies, Adverse Reactions, Alerts Substance Reaction Severity Status NKA Active Immunizations Given and Recorded Vaccine Date Status Refusal Reason tetanus/diphtheria/pertussis, acel(Tdap) 04/03/19 Given tetanus/diphtheria/pertussis, acel(Tdap) 1 10/15/18 Given influenza virus vaccine, inactivated 2 07/15/18 Gi paulino influenza virus vaccine, inactivated 08/24/14 Give n influenza virus vaccine, inactivated 07/17/12 Give n pneumococcal 23-valent vaccine 3 07/22/09 Given 1Result Comment: [10/15/2018] [facility]#[id number] 2Result Comment: [07/15/2018] [id number] 3Result Comment: lot # [id number] exp sep [...] 11/03/19 12:18:00 EST, Route to Pharmacy Electronically, [facility]... Start Date: 11/03/19 Status: Ordered gabapentin 300 [...] 02/23/20 12:22:00 EDT, Route to Pharmacy Electronically, [facility] #[id number], 160, cm, 10/07/19 10... Start Date: 02/23/20 [...] 01/19/19 10:14:48 EDT, Route to Pharmacy Electronically, [facility] [address] Start Date: 01/19/19 Status: Ordered PredniSONE By [...] tablet, 0 Refills, Maintenance, 05/04/20 20:37:00 EDT, [facility] #22933, 160, cm, 10/07/19 10:44:00 EST, Height, 57.3, [...] 74% ( crippled ) on 12/08/17; initial [place]: 14 on 12/08/17 2SOAPP-R: 38 on 12/08/17 3Pain relevant problem list includes: See below 53739 Social History Social History Type Response Tobacco Use: 4 or less cigar ettes(less than 1/4 pack)/day in last 30 days. Sex
--- OUTSIDE RECORDS SUMMARY | 2024-03-12 04:36 | XMS_ITS | Continuity of Care Document ---
Author Organization [facility] Address [address] [place] [address]- Care Team Providers Care Church History Teacher Name Role Phone Drew Barr MD Primary Care Physician [phone] Encounter [facility] Date(s): 07/10/19 - 11/07/19 [facility] [address] [place] [address] Attending Physician: Radha Kramer MD Admitting Physician: Radha Kramer MD Allergies, Adverse Reactions, Alerts Substance Reaction Severity Status NKA Active Immunizations Given and Recorded Vaccine Date Status Refusal Reason tetanus/diphtheria/pertussis, acel(Tdap) 04/03/19 Given tetanus/diphtheria/pertussis, acel(Tdap) 1 10/15/18 Given influenza virus vaccine, inactivated 2 07/15/18 Gi paulino influenza virus vaccine, inactivated 08/24/14 Give n influenza virus vaccine, inactivated 07/17/12 Give n pneumococcal 23-valent vaccine 3 07/22/09 Given 1Result Comment: [10/15/2018] [facility]#[id number] 2Result Comment: [07/15/2018] [id number] 3Result Comment: lot # [id number] exp sep [...] 11/03/19 12:18:00 EST, Route to Pharmacy Electronically, [facility]... Start Date: 11/03/19 Status: Ordered KlonoPIN 1 mg oral tablet 1 tablet = 1 mg, By Mouth, 3 times a day, # 24 tablet, 0 Refills, Maintenance, 05/15/18 9:44:32 EDT, Tablet Start Date: 05/15/18 Status: Ordered lamotrigine 25 mg oral tablet 50 mg, 2, tablet, By Mouth, Daily, # 60 tablet, Refills 2, Tot. Refills 2, Maintenance, 01/19/19 10:14:48 EDT, Route to Pharmacy Electronically, [facility] [address] Start Date: 01/19/19 Status: Ordered Seroquel 50 [...] 74% ( crippled ) on 12/08/17; initial [place]: 14 on 12/08/17 2SOAPP-R: 38 on 12/08/17 3Pain relevant problem list includes: See below 70505 Social History Social History Type Response Tobacco Use: 4 or less cigar ettes(less than 1/4 pack)/day in last 30 days. Sex
--- OUTSIDE RECORDS SUMMARY | 2024-03-12 04:36 | XMS_ITS | Continuity of Care Document ---
Author Organization [facility] Address [address] [place] [address]- Care Team Providers Care Grain Mixer Name Role Phone Drew Barr MD Primary Care Physician Encounter [facility] Date(s): 03/01/20 - 03/31/20 [facility] [address] [place] [address]- [facility] Allergies, Adverse Reactions, Alerts Substance Reaction Severity Status NKA Active Immunizations Given and Recorded Vaccine Date Status Refusal Reason tetanus/diphtheria/pertussis, acel(Tdap) 04/03/19 Given tetanus/diphtheria/pertussis, acel(Tdap) 1 10/15/18 Given influenza virus vaccine, inactivated 2 07/15/18 Gi paulino influenza virus vaccine, inactivated 08/24/14 Give n influenza virus vaccine, inactivated 07/17/12 Give n pneumococcal 23-valent vaccine 3 07/22/09 Given 1Result Comment: [10/15/2018] [facility]#[id number] 2Result Comment: [07/15/2018] [id number] 3Result Comment: lot # [id number] exp sep [...] 11/03/19 12:18:00 EST, Route to Pharmacy Electronically, [facility]... Start Date: 11/03/19 Status: Ordered gabapentin [...] 02/23/20 12:22:00 EDT, Route to Pharmacy Electronically, [email or web address] #20950, 160, cm, 10/07/19 10... Start Date: 02/23/20 [...] 01/19/19 10:14:48 EDT, Route to Pharmacy Electronically, [facility] Start Date: 01/19/19 Status: Ordered Seroquel 50 [...] 74% ( crippled ) on 12/08/17; initial [place]: 14 on 12/08/17 2SOAPP-R: 38 on 12/08/17 3Pain relevant problem list includes: See below 43810 Social History Social History Type Response Tobacco Use: 4 or less cigar ettes(less than 1/4 pack)/day in last 30 days. Sex
--- OUTSIDE RECORDS SUMMARY | 2024-03-12 04:36 | XMS_ITS | Continuity of Care Document ---
Author Organization [facility] Address [address] [place] [address]- Care Team Providers Care Digital Media Planner Name Role Phone Drew Barr MD Primary Care Physician En[place] [facility] Date(s): 07/11/20 - 08/10/20 [facility] [address] [place] [address] Attending Physician: Josefina Skelton Admitting Physician: Josefina Skelton Referring Physician: Admtr, Josefina Allergies, Adverse Reactions, Alerts Substance Reaction Severity Status NKA Active Immunizations Given and Recorded Vaccine Date Status Refusal Reason tetanus/diphtheria/pertussis, acel(Tdap) 04/03/19 Given tetanus/diphtheria/pertussis, acel(Tdap) 1 10/15/18 Given influenza virus vaccine, inactivated 2 07/15/18 Gi paulino influenza virus vaccine, inactivated 08/24/14 Give n influenza virus vaccine, inactivated 07/17/12 Give n pneumococcal 23-valent vaccine 3 07/22/09 Given 1Result Comment: [10/15/2018] [facility]#[id number] 2Result Comment: [07/15/2018] [id number] 3Result Comment: lot # [id number] exp sep [...] 11/03/19 12:18:00 EST, Route to Pharmacy Electronically, [facility]... Start Date: 11/03/19 Status: Ordered gabapentin [...] 02/23/20 12:22:00 EDT, Route to Pharmacy Electronically, [facility] #62101, 160, cm, 10/07/19 10... Start Date: 02/23/20 [...] 01/19/19 10:14:48 EDT, Route to Pharmacy Electronically, [facility] [address] Start Date: 01/19/19 Status: Ordered PredniSONE By [...] tablet, 0 Refills, Maintenance, 05/04/20 20:37:00 EDT, [facility], 160, cm, 10/07/19 10:44:00 EST, Height, 57.3, [...] 74% ( crippled ) on 12/08/17; initial [place]: 14 on 12/08/17 2SOAPP-R: 38 on 12/08/17 3Pain relevant problem list includes: See below 88606 Social History Social History Type Response Tobacco Use: 4 or less cigar ettes(less than 1/4 pack)/day in last 30 days. Sex
--- OUTSIDE RECORDS SUMMARY | 2024-03-12 04:36 | XMS_ITS | Continuity of Care Document ---
Author Organization [facility] Address [address] [place] [address]- Care Team Providers Care Faculty Instructor Name Role Phone Kwasi JOSE, Fan Franz Primary Care Physician Encounter [facility] Date(s): 04/10/22 - 05/10/22 [facility] [address] [place], [place] [address] Allergies, Adverse Reactions, Alerts No [...] vaccine 3 07/22/09 Given 1Result Comment: [10/15/2018] [facility]#[id number] 2Result Comment: [07/15/2018] [id number] 3Result Comment: lot # [id number] exp sep [...] 10/04/21 11:23:00 EST, Route to Pharmacy Electronically, [facility]/pharmacy #0859, 166, cm, 10/04/21 11:05:00 EST, Height, [...] 11:26:00 EST, 10/04/21 11:26:00 EST, REC Powder, [facility]/pharmacy #0859, Partial fill upon patient request if [...] 74% ( crippled ) on 12/08/17; initial [place]: 14 on 12/08/17 2SOAPP-R: 38 on 12/08/17 3Pain relevant problem list includes: See below 16484 Social History Social History Type Response Tobacco Use: 4 or less cigar ettes(less than 1/4 pack)/day in last 30 days. Sex Care Team Personnel Name: Fan Villalpando MD Address: [address] [place] [address] Adult & Pediatric Medicine [address]
--- OUTSIDE RECORDS SUMMARY | 2024-03-12 04:36 | XMS_ITS | Continuity of Care Document ---
Author Organization [facility] Address [address] [place] [address]- Care Team Providers Care Ms Sql Dba Name Role Phone Kwasi JOSE, Fan Franz Primary Care Physician [facility]counter [facility] Date(s): 04/10/22 - 05/10/22 [facility] [address] [place], [place] [address] Allergies, Adverse Reactions, Alerts No Known [...] 3 07/22/09 Given 1Result Comment: [10/15/2018] [facility]#[id number] 2Result Comment: [07/15/2018] [id number] 3Result Comment: lot # [id number] exp sep [...] 10/04/21 11:23:00 EST, Route to Pharmacy Electronically, [facility]/pharmacy #0859, 166, cm, 10/04/21 11:05:00 EST, [...] 11:26:00 EST, 10/04/21 11:26:00 EST, REC Powder, [facility]/pharmacy #0859, Partial fill upon patient [...] 74% ( crippled ) on 12/08/17; initial [place]: 14 on 12/08/17 2SOAPP-R: 38 on 12/08/17 3Pain relevant problem list includes: See below 406[address] Social History Social History Type Response Tobacco Use: 4 or less cigar ettes(less than 1/4 pack)/day in last 30 days. Sex Care Team Personnel Name: Fan Villalpando MD Address: [address] [place] [address] Adult & Pediatric Medicine [address]
--- OUTSIDE RECORDS SUMMARY | 2024-03-12 04:36 | XMS_ITS | Continuity of Care Document ---
Author Organization [facility] Address [address] [place] [address]- Care Team Providers Care Pulmonologist Intensivist Name Role Phone Fan Villalpando MD Primary Care Physician [place] [facility] Date(s): 05/07/22 - 05/14/22 [facility] [address] [place], [place] [address] Attending Physician: Junior Hobbs DO Referring Physician: Fan Villalpando MD Allergies, Adverse [...] 1Result Comment: [10/15/2018] [facility]#[id number] 2Result Comment: [07/15/2018] [id number] 3Result Comment: lot # [id number] exp sep [...] 10/04/21 11:23:00 EST, Route to Pharmacy Electronically, [facility]/pharmacy #0859, 166, cm, 10/04/21 11:05:00 EST, [...] 11:26:00 EST, 10/04/21 11:26:00 EST, REC Powder, [facility]/pharmacy #0859, Partial fill upon patient request [...] 74% ( crippled ) on 12/08/17; initial [place]: 14 on 12/08/17 2SOAPP-R: 38 on 12/08/17 3Pain relevant problem list includes: See below 62117 Social History Social History Type Response Tobacco Use: 4 or less cigar ettes(less than 1/4 pack)/day in last 30 days. Sex Care Team Personnel Name: Fan Villalpando MD Address: [address] [place] [address] Adult & Pediatric Medicine [address]
--- OUTSIDE RECORDS SUMMARY | 2024-03-12 04:36 | XMS_ITS | Continuity of Care Document ---
Author Organization [facility] Address [address] [place] [address]- Care Team Providers Care Routeman Name Role Phone Drew Barr MD Primary Care Physician [facility]): [facility] - 10/17/19 [facility] [address] [place] [address]- [facility] Attending Physician: Josefina Skelton Admitting Physician: AdmtrJosefina [...] vaccine 3 07/22/09 Given 1Result Comment: [10/15/2018] [facility]#[id number] 2Result Comment: [07/15/2018] [id number] 3Result Comment: lot # [id number] exp sep [...] 01/19/19 10:14:48 EDT, Route to Pharmacy Electronically, [facility] [address] Start Date: 01/19/19 Status: Ordered Seroquel 50 [...] 74% ( crippled ) on 12/08/17; initial [place]: 14 on 12/08/17 2SOAPP-R: 38 on 12/08/17 3Pain relevant problem list includes: See below [id number] Social History Social History Type Response Tobacco Use: 4 or less cigar ettes(less than 1/4 pack)/day in last 30 days. Sex
--- OUTSIDE RECORDS SUMMARY | 2024-03-12 04:36 | XMS_ITS | Continuity of Care Document ---
Author Organization [facility] Address [address] [place] [address]- Care Team Providers Care Public Welfare Worker Name Role Phone Drew Barr MD Primary Care Physician [phone] [place] [facility] [place] 11/08/19 - 02/10/20 [facility] [address] [address]- [facility] Attending Physician: Radha Kramer MD Admitting Physician: [...] 3 07/22/09 Given 1Result Comment: [10/15/2018] [facility]#[id number] 2Result Comment: [07/15/2018] [id number] 3Result Comment: lot # [id number] exp sep [...] 11/03/19 12:18:00 EST, Route to Pharmacy Electronically, [facility] Start Date: 11/03/19 Status: Ordered KlonoPIN 1 [...] 01/19/19 10:14:48 EDT, Route to Pharmacy Electronically, [facility] Start Date: 01/19/19 Status: Ordered Seroquel 50 [...] 74% ( crippled ) on 12/08/17; initial [place]: 14 on 12/08/17 2SOAPP-R: 38 on 12/08/17 3Pain relevant problem list includes: See below [id number] Social History Social History Type Response Tobacco Use: 4 or less cigar ettes(less than 1/4 pack)/day in last 30 days. Sex
--- OUTSIDE RECORDS SUMMARY | 2024-03-12 04:36 | XMS_ITS | Continuity of Care Document ---
Author Organization [facility] Address [address] [place] [address]- Care Team Providers Care Information Systems Analyst Name Role Phone Fan Villalpando MD Primary Care Physician [phone] [facility] 10/02/22 - 10/09/22 [facility] [address] [place], [place] [address] Encounter Diagnosis IVDU (intravenous drug user)(Discharge Diagnosis) - 10/02/22 Bipolar disorder, curr episode depressed, severe, w/psychotic features(Discharge Diagnosis) - 10/02/22 Chronic pain(Discharge Diagnosis) - 10/02/22 TMJ syndrome(Discharge Diagnosis) - 10/02/22 Attending Physician: Fan Villalpando MD Allergies, Adverse [...] vaccine 3 07/22/09 Given 1Result Comment: [10/15/2018] [facility]#[id number] 2Result Comment: [07/15/2018] [id number] 3Result Comment: lot # [id number] exp sep 21 2010 Medications betamethasone-clotrimazole 0.05%-1% topical cream 1 application, Topically, 2 times a day, PRN foot rash, # 15 Gm, 1 Refills, Acute 05/20/23 17:17:00EDT, 05/20/22 17:16:00 EDT, Cream, [facility]/pharmacy #[id number], Partial fill upon patient request if the [...] 10/02/23 14:47:00 EST, 10/02/22 14:47:00 EST, Ointment, [facility]/pharmacy #[id number], Partial fill upon patient [...] 74% ( crippled ) on 12/08/17; initial [place]: 14 on 12/08/17 2SOAPP-R: 38 on 12/08/17 3Pain relevant problem list includes: See below [id number] Diagnosis Diagnosis Type Effective Dates Health Status inical Service Informant IVDU (intravenous drug user) Discharge Diagnosis 10/02/22 Bipolar disorder, curr episode depressed, severe, w/psychotic features Discharge Diagnosis 10/02/22 Chronic pain Discharge Diagnosis 10/02/22 TMJ syndrome Discharge Diagnosis 10/02/22 Vital Signs Most recent to oldest [Reference Range]: 1 Height 160 cm (10/02/22 2:28 PM) Weight 62.9 kg (10/02/22 2:28 PM) Oxygen Saturation [94-100 %] 97 % (10/02/22 2:28 PM) Pulse Rate [55-90 bpm] 106 bpm *H* (10/02/22 2:28 PM) Body Mass Index [18.5-24.99 kg/m2] 24.57 kg/m2 (10/02/22 2:28 PM) Blood Pressure [90-138/55-84 mm Hg] 116/ 78mm Hg (10/02/22 2:28 PM) Mode of Delivery (Oxygen) Room air (10/02/22 2:28 PM) Blood pressure sites Arm, left (10/02/22 2:28 PM) Weight Obtained Via Standing scale (10/02/22 2:28 PM) Social History Social History Type Response Tobacco Use: 4 or less cigar ettes(less than 1/4 pack)/day in last 30 days. Sex Note * Reny Sequeira: PERFORM, SIGN, VERIFY Event Display: Patient Education/Instruction Authored Date: [id number] [facility] Clinical Summary Name KESHA BERNAL Age 37 Years 1985 PCP Fan Villalpando MD PCP Visit Date 10/02/2022 14:06:00 Additional Instructions: Scheduled Appointments?? Future Appointments ?No Future Appointments Scheduled Follow-Up Instructions ?? Diagnosis Nonscarring hair loss, unspecified; Opioid abuse, in remission; Major depressive disorder, single episode, unspecified Medications: Please continue your medications until treatment is completed or stopped by your provider. Discuss any questions related to medications with your provider. New Medications [id number], [address], [place] [id number], [phone] Mupirocin Topical (mupirocin 2% topical ointment) 1 vaughn Topically 3 times a day as needed skin sores. Refills: 1. Next Dose: Medications to Continue with No Changes These medications were not printed or sent to your pharmacy Betamethasone-Clotrimazole Topical (betamethasone-clotrimazole 0.05%-1% topical cream) 1 vaughn Topically twice a day as needed foot rash. Refills: 1. Next Dose: Clonazepam (clonazePAM 1 mg oral tablet) 1 tab(s) Oral twice a day. Next Dose: Duloxetine (Cymbalta 30 mg oral enteric coated capsule) 90 Milligram Oral Daily. do not crush or chew. Next Dose: Gabapentin (gabapentin 400 mg oral capsule) 1 capsule Oral Daily at Bedtime. Take with 300 mg for total of 700 mg q HS. Refills: 11. Next Dose: Polyethylene Glycol 3350 (MiraLax oral powder for reconstitution) 17 gram Oral Daily. dissolve in water before taking. Refills: 11. Next Dose: Quetiapine (SEROquel 50 mg oral tablet) 1 tab(s) Oral twice a day as needed anxiety or sleep. Next Dose: Allergy Info:?? NKA Medications Given This Visit Future Orders ?TSH? Order Date:10/02/22?- Complete on or after?10/02/22 ?Vitamin B12 Level? Order Date:10/02/22?- Complete on or after?10/02/22 ?Iron + Iron Binding Capacity? Order Date:10/02/22?- Complete on or after?10/02/22 ?CBC w/ Differential? Order Date:10/02/22?- Complete on or after?10/02/22 ?Comprehensive Metabolic Panel? Order Date:10/02/22?- Complete on or after?10/02/22 ?Ferritin? Order Date:10/02/22?- Complete on or after?10/02/22 Vital Signs Height 160 cm Weight 62.9 kg BMI 24.57 kg/m2 Blood Pressure 116 mm Hg/78 mm Hg Temperature Pulse Rate 106 bpm Respiratory Rate 02 Sat Mode of Delivery 97 %/Room air You can now view a summary of your hospital visit from the comfort of your home through a free online portal called [employer]. [employer] is a website that allows you to securely view your medical information including discharge summary, medications and follow-up visits. ??You can alsosend a secure electronic message to your doctor???s office to request appointments, renew medications or just ask a question. You can enroll at [email or web address] or register during your next office visit. Disclaimer:?? The information provided is of a general nature and is intended to be used in conjunction with the recommendations and advice of your health care practitioner. ??Every effort has been made to ensure that the information provided is accurate and complete at the time it is provided to you however, as your needs change, or, as new ??information becomes available, different or additional instructions may be required. If you have questions, please consult with your primary care provider or pharmacist, as appropriate. ??This information is not intended to serve as substitution for assessment and evaluation by a qualified health care provider. If you do not have a primary care provider, you may find a [facility] provider by calling [facility] [employer] Link at [phone]. For information about the plan of care including goals and instructions for your diagnosis, please see the patient education orders section of this document. Patient Education Materials?? The content of this educational material or handout may have been modified, supplemented, or adapted from its original content and format to support your individualized medical care. Patient Care team information Care Team Personnel Name: Deneen Guzman RN Position: [facility] RN Member Role: Primary Care Nurse Name: Mabel Quick RN Position: [facility] PCO RN Member Role: Primary Care Nurse Name: Fan Villalpando MD Position: [facility] Primary Care Physician Member Role: PCP Address: Address: [address] [place] [address] Adult & Pediatric [place], [place] [address] Name: Mely Castillo RN Position: S RN Member Role: Primary Care Nurse Name: Torri Richards RN Position: [facility] RN Member Role: Primary Care Nurse Name: Spencer Willard Position: [facility] RN Member Role: Primary Care Nurse Name: Estephania Yu RN Position: [facility] RN Nessav Member Role: Primary Care Nurse Name: Evelyn Joy RN Position: [facility] RN Member Role: Primary Care Nurse Name: Alix Milner RN Position: [facility] RN Member Role: Primary Care Nurse Name: Sandra Virgen MD Position: [facility] HIGHWALL DRILL OPERATOR MD Member Role: Lifetime HIGHWALL DRILL OPERATOR Physician Address: Address: [address] [place], [place] [address] [place] [address]- Name: Rae Cruz RN Position: [facility] RN Member Role: Primary Care Nurse Name: Mary Jo Moeller RN Position: [facility] Onco RN Member Role: Primary Care Nurse Care Team Related Persons Name: NIC WOOD Address: [address] [address]
--- OUTSIDE RECORDS SUMMARY | 2024-03-12 04:36 | XMS_ITS | Continuity of Care Document ---
Author Organization [facility] Address [address] [place] [address] [address] [place] [address]- Care Team Providers Care Visual Effects Editor Name Role Phone Kwasi JOSE, Fan Franz Primary Care Physician [facility] Date[facility]s): 12/03/23 - 01/02/24 [facility] [address] [place] [address] Attending Physician: Admtr, Clayton8 Admitting Physician: Admtr, Ar8 Referring Physician: Admtr, Ar8 Allergies, Adverse Reactions, [...] 1Result Comment: [10/15/2018] [facility]#[id number] 2Result Comment: [07/15/2018] [id number] 3Result Comment: lot # [id number] exp sep 21 2010 Medications betamethasone-clotrimazole 0.05%-1% topical cream See Instructions, APPLY TOPICALLY 2 TIMES A DAY NEEDED FOR FOOT RASH, # 15 Gm, 5 Refills, Maintenance, 02/12/23 9:53:00 EDT, [facility], 30, APPLY TOPICALLY 2 TIMES A DAY [...] 11:21:00 EST, 08/21/23 11:20:00 EST, REC Powder, [facility]/pharmacy #[id number], Partial fill upon patient requestif the [...] 08/21/23 11:07:00 EST, Dry Weight Start Date: 12/21/23 Status: Ordered mupirocin 2% topical ointment 1 application, Topically, 3 times a day, PRN skin sores, # 30 Gm, 5 Refills, Acute 08/21/24 11:28:00 EST, 08/21/23 11:28:00 EST, Ointment, [facility]/pharmacy #[id number], Partial fill upon patient request if [...] 74% ( crippled ) on 12/08/17; initial [place]: 14 on 12/08/17 2SOAPP-R: 38 on 12/08/17 3Pain relevant problem list includes: See below 88354 Social History Social History Type Response Tobacco Use: 4 or less cigar ettes(less than 1/4 pack)/day in last 30 days. Sex Patient Care team information Care Team Personnel Name: Thomas CONNELLYDeneen Position: [facility] RN Member Role: Primary Care Nurse Name: Mabel Quick RN Position: [facility] AMB Nurse Member Role: Primary Care Nurse Name: Fan Villalpando MD Position: [facility] Physician - Primary Care Member Role: PCP Address: Address: [address] [place] [address] Adult [place] [address]- [place] Name: Mely Castillo RN Position: [facility] RN Member Role: Primary Care Nurse Name: Evelyn Hall RN Position: [facility] RN Member Role: Primary Care Nurse Name: Spencer Willard RN Position: [facility] RN Member Role: Primary Care Nurse Name: Alix Milner RN Position: [facility] RN Member Role: Primary Care Nurse Name: Collin Bolanos RN Position: [facility] SN RN Member Role: Primary Care Nurse Name: Torri Kirkpatrick RN Position: [facility] RN Member Role: Primary Care Nurse Name: Sandra Virgen MD Position: [facility] TAG STRINGER MD Member Role: Lifetime TAG STRINGER Physician Address: Address: [address] [place] [address]- [place] Name: Mary Jo Garcia RN Position: [facility] Onco RN Member Role: Primary Care Nurse Name: Rae Cruz NP Position: [facility] PCO Associate Professional Member Role: Primary Care Nurse Address: Address: [address] [facility] [place] [place] [address]- [place] Care Team Related Persons Name: NIC WOOD Address: home [address] [place] [address]
--- OUTSIDE RECORDS SUMMARY | 2024-03-12 04:36 | XMS_ITS | Continuity of Care Document ---
Author Organization [facility] Address [address] [place] [address]- Care Team Providers Care Oracle Fusion Consultant Name Role Phone Drew Barr MD Primary Care Physician [facility] 06[facility]07[facility]19 - 09/01/19 [facility] [address] [place] [address]- [facility] Attending Physician: Drew Barr MD Allergies, Adverse [...] Comment: [10/15/2018] [facility]#[id number] 2Result Comment: [07/15/2018] [id number] 3Result Comment: lot # [id number] exp sep [...] 01/19/19 10:14:48 EDT, Route to Pharmacy Electronically, [facility] [address] Start Date: 01/19/19 Status: Ordered Methadone Liquid = 20 mg, By Mouth, Daily, dose verified by Jun[facility] at [facility], 0 Refills, Maintenance, 08/30/19 7:22:00 EST, Partial fill upon patient request Start Date: 08/30/19 Status: Ordered nicotine 14 mg/24 hr transdermal film, extended release See Instructions, # 28 patch, APPLY 1 PATCH TOPICALLY ONCE DAILY, [facility] #[id number] Start Date: 04/05/19 Status: Ordered Seroquel 50 [...] EST, Aerosol Start Date: 09/04/18 Status: Ordered Problem List Condition Effective Dates [...] 74% ( crippled ) on 12/08/17; initial [place]: 14 on 12/08/17 2SOAPP-R: 38 on 12/08/17 3Pain relevant problem list includes: See below 39569 Social History Social History Type Response Tobacco Use: 4 or less cigar ettes(less than 1/4 pack)/day in last 30 days. Sex
--- OUTSIDE RECORDS SUMMARY | 2024-03-12 04:36 | XMS_ITS | Continuity of Care Document ---
Author Organization [facility] Address [address] [place] [address]- Care Team Providers Care Wire Drawer Name Role Phone Fan Villalpando MD Primary Care Physician [facility]s): 04/25/22 - 05/02/22 [facility] [address] [place] [address]- Encounter Diagnosis Cellulitis of left foot(Discharge Diagnosis) - 04/25/22 Attending Physician: Junior Hobbs DO Referring Physician: [...] vaccine 3 07/22/09 Given 1Result Comment: [10/15/2018] [facility]#[id number] 2Result Comment: [07/15/2018] [id number] 3Result Comment: lot # [id number] exp sep [...] 10/04/21 11:23:00 EST, Route to Pharmacy Electronically, [facility]/pharmacy #[id number], 166, cm, 10/04/21 11:05:00 [...] 11:26:00 EST, 10/04/21 11:26:00 EST, REC Powder, [facility]/pharmacy #0859, Partial fill [...] 74% ( crippled ) on 12/08/17; initial [place]: 14 on 12/08/17 2SOAPP-R: 38 on 12/08/17 3Pain relevant problem list includes: See below [id number] Diagnosis Diagnosis Type Effective Dates Health Status Clinical Service Informant Cellulitis of left foot Discharge Diagnosis 04/25/22 Vital Signs Most recent to oldest [Reference Range]: 1 Height 160 cm (04/25/22 1:11 PM) Oxygen Saturation [94-100 %] 100 % (04/25/22 1:11 PM) Pulse Rate [55-90 bpm] 74 bpm (04/25/22 1:11 PM) Blood Pressure [90-138/55-84 mm Hg] 120/ 87mm Hg (04/25/22 1:11 PM) Temperature [96.8-100.4 DegF] 97.2 DegF (04/25/22 1:11 PM) Mode of Delivery (Oxygen) Room air (04/25/22 1:11 PM) Blood pressure sites Arm, right (04/25/22 1:11 PM) Temperature Route Temporal (04/25/22 1:11 PM) Social History Social History Type Response Tobacco Use: 4 or less cigar ettes(less than 1/4 pack)/day in last 30 days. Sex Care Team Personnel Name: Fan Villalpando MD Address: [address] [place] [address] Adult & Pediatric Medicine [address]
--- OUTSIDE RECORDS SUMMARY | 2024-03-12 04:36 | XMS_ITS | Continuity of Care Document ---
Author Organization [facility] Address [address] [place] [address]- Care Team Providers Care Quality Control Auditor Name Role Phone Drew Barr MD Primary Care Physician Encounter [facility] Date(s): 12/03/19 - 12/13/19 [facility] [address] [place] [address]- [facility] Attending Physician: Josefina Skelton Admitting Physician: Josefina Skelton Referring Physician: AdmtrJosefina Allergies, Adverse Reactions, Alerts [...] Given 1Result Comment: [10/15/2018] [facility]#[id number] 2Result Comment: [07/15/2018] [id number] 3Result Comment: lot # [id number] exp sep [...] 11/03/19 12:18:00 EST, Route to Pharmacy Electronically, [facility] Start Date: 11/03/19 Status: Ordered KlonoPIN 1 [...] 01/19/19 10:14:48 EDT, Route to Pharmacy Electronically, [facility] Start Date: 01/19/19 Status: Ordered predniSONE 20 mg oral tablet 3 tablet = 60 mg, By Mouth, Daily, for 30 days, # 90 tablet, 1 Refills, Acute 01/21/20 14:34:00 EDT, 11/22/19 14:34:00 EDT, [facility] #07682, 160, cm, 10/07/19 10:44:00 EST, Height, 62, kg, 08/30/19 11:59:00 EST, Dry Weight Start Date: 11/22/19 Stop Date: 01/21/20 Status: Ordered Seroquel 50 mg oral tablet [...] 74% ( crippled ) on 12/08/17; initial [place]: 14 on 12/08/17 2SOAPP-R: 38 on 12/08/17 3Pain relevant problem list includes: See below 91867 Social History Social History Type Response Tobacco Use: 4 or less cigar ettes(less than 1/4 pack)/day in last 30 days. Sex
--- OUTSIDE RECORDS SUMMARY | 2024-03-12 04:36 | XMS_ITS | Continuity of Care Document ---
Author Organization [facility] Address [address] [place] [address]- Care Team Providers Care Senior Android Developer Name Role Phone Fan Villalpando MD Primary Care Physician Encounter [facility] Date(s): 04/03/22 - 04/10/22 [facility] [address] [place], [place] [address] Encounter Diagnosis COVID-19 virus infection(Discharge Diagnosis) - 04/03/22 Stress incontinence(Discharge Diagnosis) - 04/03/22 Bipolar disorder, curr episode depressed, severe, w/psychotic features(Discharge Diagnosis) - 04/03/22 History of opioid abuse(Discharge Diagnosis) - 04/03/22 Hodgkin lymphoma(Discharge Diagnosis) - 04/03/22 Attending Physician: Fan Villalpando MD Allergies, Adverse [...] 3 07/22/09 Given 1Result Comment: [10/15/2018] [facility]#[id number] 2Result Comment: [07/15/2018] [id number] 3Result Comment: lot # [id number] exp sep [...] 10/04/21 11:23:00 EST, Route to Pharmacy Electronically, [facility]/pharmacy #[id number], 166, cm, 10/04/21 11:05:00 [...] 11:26:00 EST, 10/04/21 11:26:00 EST, REC Powder, [facility]/pharmacy #[id number], Partial fill upon patient [...] 74% ( crippled ) on 12/08/17; initial [place]: 14 on 12/08/17 2SOAPP-R: 38 on 12/08/17 3Pain relevant problem list includes: See below [id number] Diagnosis Diagnosis Type Effective Dates Health Status Clinical Service Informant COVID-19 virus infection Discharge Diagnosis 04/03/22 Stress incontinence Discharge Diagnosis 04/03/22 Bipolar disorder, curr episode depressed, severe, w/psychotic features Discharge Diagnosis 04/03/22 History of opioid abuse Discharge Diagnosis 04/03/22 Hodgkin lymphoma Discharge Diagnosis 04/03/22 Vital Signs Most recent to oldest [Reference Range]: 1 2 Height 160 cm (04/03/22 2:32 PM) 160 cm (04/03/22 2:12 PM) Weight 62.8 kg (04/03/22 2:12 PM) Oxygen Saturation [94-100 %] 99 % (04/03/22 2:12 PM) Pulse Rate [55-90 bpm] 90 bpm (04/03/22 2:32 PM) 127 bpm *H* (04/03/22 2:12 PM) Body Mass Index [18.5-24.99] 24.53 (04/03/22 2:12 PM) Blood Pressure [90-138/55-84 mm Hg] 118/ 78mm Hg (04/03/22 2:12 PM) Blood pressure sites Arm, left (04/03/22 2:12 PM) Social History Social History Type Response Tobacco Use: 4 or less cigar ettes(less than 1/4 pack)/day in last 30 days. Sex
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
--- OUTSIDE RECORDS SUMMARY | 2024-03-12 04:36 | XMS_ITS | Continuity of Care Document ---
Author Organization [facility] Address [address] [place] [address]- Care Team Providers Care Production Supervisor Off Shift Name Role Phone Fan Villalpando MD Primary Care Physician Encounter [facility] Date(s): 12/19/21 - 12/19/[address] [address]- Discharge Disposition: A-D/C Home Attending Physician: Lu Campos MD Admitting Physician: Lu Campos MD Referring Physician: Not on Staff, Referring [...] vaccine 3 07/22/09 Given 1Result Comment: [07/15/2018] [id number] 2Result Comment: [10/15/2018] [facility]#[id number] 3Result Comment: lot # [id number] exp sep [...] 28 tablet, 0 Refills, Maintenance, 04/25/2114:22:00 EDT, [facility]/pharmacy #[id number], 166, cm, 04/25/21 13:44:00 EDT, Height, 66.8, kg, 10/31/20 23:17:00 EST, Dry Weight Start Date: 04/25/21 Stop Date: 05/09/21 Status: Ordered gabapentin 300 mg oral capsule 1, capsule, By Mouth, Daily, for 90 days, # 90 capsule, Refills 3, Tot. Refills 3, Physician Stop 09/29/22 11:23:00 EST, 10/04/21 11:23:00 EST, Route to Pharmacy Electronically, [facility]/pharmacy #[id number], 166, cm, 10/04/21 11:05:00 [...] 11:26:00 EST, 10/04/21 11:26:00 EST, REC Powder, [facility]/pharmacy #[id number], Partial fill upon [...] 74% ( crippled ) on 12/08/17; initial [place]: 14 on 12/08/17 2SOAPP-R: 38 on 12/08/17 3Pain relevant problem list includes: See below 12455 Results Radiology Reports * Exam Date Time Procedure Performing Provider Status 12/19/21 10:30 AM Foot Min 3 Views Right Dax Brown; Baldemar (Verified) Notes: (Foot Min 3 Views Right) Reason For Exam: with Pain;Pain RESULT: Foot Min 3 Views Right Right foot 3 views dated June 20, 2022. No prior studies are available. There are prior examinations from April 24, 2021 of the ankle. HISTORY: Pain. FINDINGS: This examination shows postoperative changes in the ankle involving fenestrated plates and multiple screws. These are unchanged. There is also a screw bridging the proximal aspect of the second metatarsal and the medial cuneiform. This is broken and unchanged. A screw is also noted traversing from medial to lateral through the medial and middle cuneiforms. No soft tissue gas or bony erosion is appreciated. IMPRESSION: Broken screw. No evidence of acute osseous abnormality in the foot. No plain film evidence of osteomyelitis. Examination 97182. Thank you for allowing me to participate in the care of this patient. WSN: [id number] Ordering Physician: Federica Ahmadi Dictated By: José Miguel Wagoner MD Dictated Date/Time: 12/19/21 10:52 a Reviewed By: José Miguel Wagoner MD Signed By: José Miguel Wagoner MD Signed Date/Time: 12/19/21 10:52 am Transcribed By: CARMEN Transcribed Date/Time: 12/19/21 10:49 am * Exam Date Time Procedure Performing Provider Status 12/19/21 9:14 AM Ankle Min 3 Views Right Dax Brown; Auth (Verified) Notes: (Ankle Min 3 Views Right) Reason For Exam: with Pain;Trauma RESULT: Ankle Min 3 Views Right Ankle Min 3 Views Right Refer to EMR; Hx of Present Illness: right ankle 2-3 years ago septic joint, had surgery here, pastcouple of days not feeling right , had a couple of antibiotics at the house took them (keflex), stopped taking them but now not really feeling right, states that she feels discomfort inside; Reason:Trauma; with Pain; Clinical Question(s): Fracture; Special Instructions: This is a protocol film and COMPARISON: None. FINDINGS: No evidence of acute or healing fracture or bone lesion. Intact ankle mortise and talar dome. No arthritic changes. Market soft tissue swelling near the medial malleolus. IMPRESSION: Market soft tissue swelling near medial malleolus. WSN: [id number] Ordering Physician: Carolin Adams MD Dictated By: Marques Garcia MD, V Dictated Date/Time: 12/19/21 9:31 am Reviewed By: Marques Garcia MD, V Signed By: Marques Garcia MD, V Signed Date/Time: 12/19/21 9:31 am Transcribed By: CARMEN Transcribed Date/Time: 12/19/21 9:28 am Vital Signs Most recent to oldest [Reference Range]: 1 2 3 Height 160 cm (12/19/21 8:00 AM) Weight 68.4 kg (12/19/21 8:00 AM) Oxygen Saturation [94-100 %] 95 % (12/19/21 10:14 AM) 100 % (12/19/21 8:00 AM) 97 % (12/19/21 7:49 AM) Pulse Rate [55-90 bpm] 71 bpm (12/19/21 10:14 AM) 76 bpm (12/19/21 8:00 AM) 105 bpm *H* (12/19/21 7:49 AM) Blood Pressure [90-138/55-84 mm Hg] 112/75mm Hg (12/19/21 10:14 AM) 127/83mm Hg (12/19/21 8:00 AM) Respiratory Rate [16-30 br/min] 20 br/min (12/19/21 8:00 AM) Temperature [96.8-100.4 DegF] 98.9 DegF (12/19/21 10:14 AM) 98.1 DegF (12/19/21 8:00 AM) Mode of Delivery (Oxygen) Room air (12/19/21 10:14 AM) Room air (12/19/21 8:00 AM) Room air (12/19/21 7:49 AM) Blood pressure sites Arm, left (12/19/21 10:14 AM) Arm, left (12/19/21 8:00 AM) Temperature Route Oral (12/19/21 10:14 AM) Oral (12/19/21 8:00 AM) Dry Weight 68.4 kg (12/19/21 8:00 AM) Weight Obtained Via Standing scale (12/19/21 8:00 AM) Dry Weight Obtained Via Standing scale (12/19/21 8:00 AM) Social History Social History Type Response Tobacco Use: 4 or less cigar ettes(less than 1/4 pack)/day in last 30 days. Sex
--- OUTSIDE RECORDS SUMMARY | 2024-03-12 04:36 | XMS_ITS | Continuity of Care Document ---
Author Organization [facility] Address [address] [place] [address]- Care Team Providers Care Sap Developer Name Role Phone Randy JOSE, Sarah Carrasco Primary Care Physician [facility] Date(s): 04/25/21 - 05/02/21 [facility] [address] [place], [place] [address] Attending Physician: Sarah Padilla MD Allergies, Adverse [...] vaccine 3 07/22/09 Given 1Result Comment: [07/15/2018] [id number] 2Result Comment: [10/15/2018] [facility]#[id number] 3Result Comment: lot # [id number] exp sep [...] 28 tablet, 0 Refills, Maintenance, 04/25/2114:22:00 EDT, [facility]/pharmacy #[id number], 166, cm, 04/25/21 13:44:00 EDT, [...] Maintenance, 03/27/2116:37:00 EDT, Route to Pharmacy Electronically, [facility]/pharmacy #[id number], patient takes this dose in AM [...] 02/15/21 10:37:00 EDT, Route to Pharmacy Electronically, [facility] #[id number], 160, cm, 11/03/20 7:... Start Date: 02/15/21 [...] 74% ( crippled ) on 12/08/17; initial [place]: 14 on 12/08/17 2SOAPP-R: 38 on 12/08/17 3Pain relevant problem list includes: See below [id number] Vital Signs Most recent to oldest [Reference Range]: 1 Height 166 cm (04/25/21 1:44 PM) Weight 70.5 kg (04/25/21 1:44 PM) Oxygen Saturation [94-100 %] 96 % (04/25/21 1:44 PM) Pulse Rate [55-90 bpm] 100 bpm *H* (04/25/21 1:44 PM) Body Mass Index [18.5-24.99] 25.58 *H* (04/25/21 1:44 PM) Blood Pressure [90-138/55-84 mm Hg] 100/ 62mm Hg (04/25/21 1:44 PM) Temperature [96.8-100.4 DegF] 98.7 DegF (04/25/21 1:44 PM) Mode of Delivery (Oxygen) Room air (04/25/21 1:44 PM) Blood pressure sites Arm, left (04/25/21 1:44 PM) Temperature Route Temporal (04/25/21 1:44 PM) Weight Obtained Via Standing scale (04/25/21 1:44 PM) Social History Social History Type Response Tobacco Use: 4 or less cigar ettes(less than 1/4 pack)/day in last 30 days. Sex
--- OUTSIDE RECORDS SUMMARY | 2024-03-12 04:36 | XMS_ITS | Continuity of Care Document ---
Author Organization [facility] Address [address] [place] [address]- Care Team Providers Care Orthodontist Small Business Owner Name Role Phone Sarah Padilla MD Primary Care Physician [facility] Date(s): 02/15/21 - 03/17/21 [facility] [address] [place], [place] [address] Attending Physician: Josefina Skelton Admitting [...] vaccine 3 07/22/09 Given 1Result Comment: [10/15/2018] [facility]#[id number] 2Result Comment: [07/15/2018] [id number] 3Result Comment: lot # [id number] exp sep 21 2010 Medications apixaban 5 mg oral tablet See Instructions, 2 tablet By Mouth 2 times a day for 8 doses and then 1 tablet 2 times a day thereafter, # 48 tablet, 2 Refills, Maintenance, 11/03/20 12:54:00 EST, Tablet, [facility],Partial fill upon patient request [...] 11/03/19 12:18:00 EST, Route to Pharmacy Electronically, [facility]... Start Date: 11/03/19 Status: Ordered gabapentin 400 mg oral capsule 400 mg, 1, capsule, By Mouth, Daily at bedtime, Take with 300 mg for total of 700 mg q HS, # 30 capsule, Refills 5, Tot. Refills 5, Maintenance, 02/15/21 10:37:00 EDT, Route to Pharmacy Electronically, [facility] #[id number], 160, cm, 11/03/20 7:... Start Date: 02/15/21 [...] 74% ( crippled ) on 12/08/17; initial [place]: 14 on 12/08/17 2SOAPP-R: 38 on 12/08/17 3Pain relevant problem list includes: See below 25284 Social History Social History Type Response Tobacco Use: 4 or less cigar ettes(less than 1/4 pack)/day in last 30 days. Sex
--- OUTSIDE RECORDS SUMMARY | 2024-03-12 04:36 | XMS_ITS | Continuity of Care Document ---
Author Organization [facility] Address [address] [place] [address]- Care Team Providers Care Rubber Tubing Backer Name Role Phone Fan Villalpando MD Primary Care Physician Encounter [facility] Date(s): 05/20/22 - 05/27/22 [facility] [address] [place], [place] [address] Encounter Diagnosis Skin disorder(Discharge Diagnosis) - 05/20/22 History of opioid abuse(Discharge Diagnosis) - 05/20/22 Bipolar disorder, curr episode depressed, severe, w/psychotic features(Discharge Diagnosis) - 05/20/22 Attending Physician: Fan Villalpando MD Allergies, Adverse [...] 1Result Comment: [10/15/2018] [facility]#[id number] 2Result Comment: [07/15/2018] [id number] 3Result Comment: lot # [id number] exp sep 21 2010 Medications betamethasone-clotrimazole 0.05%-1% topical cream 1 application, Topically, 2 times a day, PRN foot rash, # 15 Gm, 1 Refills, Acute 05/20/23 17:17:00EDT, 05/20/22 17:16:00 EDT, Cream, [facility]/pharmacy #[id number], Partial fill upon patient request if the [...] 10/04/21 11:23:00 EST, Route to Pharmacy Electronically, [facility]/pharmacy #[id number], 166, cm, 10/04/21 11:05:00 EST, Height, [...] 11:26:00 EST, 10/04/21 11:26:00 EST, REC Powder, [facility]acy #[id number], Partial fill upon patient request [...] 74% ( crippled ) on 12/08/17; initial [place]: 14 on 12/08/17 2SOAPP-R: 38 on 12/08/17 3Pain relevant problem list includes: See below 36625 Diagnosis Diagnosis Type Effective Dates Health Status Cl inical Service Informant Skin disorder Discharge Diagnosis 05/20/22 History of opioid abuse Discharge Diagnosis 05/20/22 Bipolar disorder, curr episode depressed, severe, w/psychotic features Discharge Diagnosis 05/20/22 Vital Signs Most recent to oldest [Reference Range]: 1 Height 160 cm (05/20/22 4:57 PM) Weight 64.8 kg (05/20/22 4:57 PM) Oxygen Saturation [94-100 %] 98 % (05/20/22 4:57 PM) Pulse Rate [55-90 bpm] 116 bpm *H* (05/20/22 4:57 PM) Body Mass Index [18.5-24.99] 25.31 *H* (05/20/22 4:57 PM) Blood Pressure [90-138/55-84 mm Hg] 118/ 70mm Hg (05/20/22 4:57 PM) Blood pressure sites Arm, left (05/20/22 4:57 PM) Social History Social History Type Response Tobacco Use: 4 or less cigar ettes(less than 1/4 pack)/day in last 30 days. Sex Care Team Personnel Name: Kwasi JOSE, Fan Franz Address: [address] [place] [address] Adult [facility] [address]
--- OUTSIDE RECORDS SUMMARY | 2024-03-12 04:37 | XMS_ITS | Continuity of Care Document ---
Author Organization [facility] Address [address] [place] [address]- Care Team Providers Care Customer Solutions Coordinator Name Role Phone Fan Villalpando MD Primary Care Physician [facility] Date(s): 08/28/22 - 09/27/22 [facility] [address] [place], [place] [address] Attending Physician: AdmJosefina rodriguez Admitting Physician: AdmtrJosefina [...] 3 07/22/09 Given 1Result Comment: [10/15/2018] [facility]#[id number] 2Result Comment: [07/15/2018] [id number] 3Result Comment: lot # [id number] exp sep 21 2010 Medications betamethasone-clotrimazole 0.05%-1% topical cream 1 application, Topically, 2 times a day, PRN foot rash, # 15 Gm, 1 Refills, Acute 05/20/23 17:17:00EDT, 05/20/22 17:16:00 EDT, Cream, [facility]/pharmacy #[id number], Partial fill upon patient request if the [...] 74% ( crippled ) on 12/08/17; initial [place]: 14 on 12/08/17 2SOAPP-R: 38 on 12/08/17 3Pain relevant problem list includes: See below 26534 Social History Social History Type Response Tobacco [...] Care Nurse Name: Mabel Quick RN Position: [facility] PCO RN Member Role: Primary Care Nurse Name: Fan Villalpando MD Position: [facility] Primary Care Physician Member Role: PCP Address: Address: [address] [place] [address] Adult [place] [address]- [place] Name: Mely Castillo RN Position: S RN Member Role: Primary Care Nurse Name: Torri Richards RN Position: S RN Member Role: Primary Care Nurse Name: Spencer Willard Position: S RN Member Role: Primary Care Nurse Name: Estephania Yu RN Position: [facility] RN Supv Member Role: Primary Care Nurse Name: Evelyn Joy RN Position: [facility] RN Member Role: Primary Care Nurse Name: Alix Milner RN Position: S RN Member Role: Primary Care Nurse Name: Sandra Virgen MD Position: [facility] SLUDGE FILTRATION ATTENDANT MD Member Role: Lifetime SLUDGE FILTRATION ATTENDANT Physician Address: Address: [address] [place] [address]- [place] Name: Rae Cruz RN Position: [facility] RN Member Role: Primary Care Nurse Name: Mary Jo Moeller RN Position: [facility] Onco RN Member Role: Primary Care Nurse Care Team Related Persons Name: NIC WOOD Address: home [address] [place] [address]
--- OUTSIDE RECORDS SUMMARY | 2024-03-12 04:37 | XMS_ITS | Continuity of Care Document ---
Author Organization [facility] Address [address] [place] [address]- Care Team Providers Care Plate Fitter Name Role Phone Fan Villalpando MD Primary Care Physician [place] [facility] [place]s): 01/14/23 - 03/19/23 [facility] [address] [place], [place] [address] Attending Physician: Fan Villalpando MD Allergies, Adverse [...] Given 1Result Comment: [10/15/2018] [facility]#[id number] 2Result Comment: [07/15/2018] [id number] 3Result Comment: lot # [id number] exp sep 21 2010 Medications betamethasone-clotrimazole 0.05%-1% topical cream See Instructions, APPLY TOPICALLY 2 TIMES A DAY NEEDED FOR FOOT RASH, # 15 Gm, 5 Refills, Maintenance, 02/12/23 9:53:00 EDT, [facility], 30, APPLY TOPICALLY 2 TIMES A DAY [...] 74% ( crippled ) on 12/08/17; initial [place]: 14 on 12/08/17 2SOAPP-R: 38 on 12/08/17 3Pain relevant problem list includes: See below 66475 Social History Social History Type Response Tobacco Use: 4 or less cigar ettes(less than 1/4 pack)/day in last 30 days. Sex Patient Care team information Care Team Personnel Name: Deneen Guzman RN Position: [facility] RN Member Role: Primary Care Nurse Name: Mabel Quick RN Position: [facility] AMB Nurse Member Role: Primary Care Nurse Name: Fan Villalpando MD Position: [facility] Physician - Primary Care Member Role: PCP Address: Address: [address] [place] [address] Adult & [place] [address]- Name: Mely Castillo RN Position: [facility] RN Member Role: Primary Care Nurse Name: Torri Richards RN Position: [facility] RN Member Role: Primary Care Nurse Name: Evelyn Hall RN Position: [facility] RN Member Role: Primary Care Nurse Name: Spencer Willard Position: S RN Member Role: Primary Care Nurse Name: Estephania Yu RN Position: [facility] RN Supv Member Role: Primary Care Nurse Name: Alix Milner RN Position: [facility] RN Member Role: Primary Care Nurse Name: Collin Bolanos RN Position: [facility] SN RN Member Role: Primary Care Nurse Name: Sandra Virgen MD Position: [facility] DIESEL TRUCK MECHANIC MD Member Role: Lifetime DIESEL TRUCK MECHANIC Physician Address: Address: [address] [place] [address]- [place] Name: Rae Cruz RN Position: S RN Member Role: Primary Care Nurse Name: Mary Jo Moeller RN Position: [facility] Onco RN Member Role: Primary Care Nurse Care Team Related Persons Name: NIC WOOD Address: home [address] [place] [address]
--- OUTSIDE RECORDS SUMMARY | 2024-03-12 04:37 | XMS_ITS | Continuity of Care Document ---
Author Organization [facility] Address [address] [place] [address]- Care Team Providers Care Professional Skater Name Role Phone Fan Villalpando MD Primary Care Physician [facility] Date(s): 05/20/22 - 06/19/22 [facility] [address] [place], [place] [address] Attending Physician: Josefina Skelton Admitting Physician: Admtr, [...] vaccine 3 07/22/09 Given 1Result Comment: [10/15/2018] [facility]#[id number] 2Result Comment: [07/15/2018] [id number] 3Result Comment: lot # [id number] exp sep 21 2010 Medications betamethasone-clotrimazole 0.05%-1% topical cream 1 application, Topically, 2 times a day, PRN foot rash, # 15 Gm, 1 Refills, Acute 05/20/23 17:17:00EDT, 05/20/22 17:16:00 EDT, Cream, [facility]/pharmacy #[id number], Partial fill upon patient request if the [...] 74% ( crippled ) on 12/08/17; initial [place]: 14 on 12/08/17 2SOAPP-R: 38 on 12/08/17 3Pain relevant problem list includes: See below 65391 Social History Social History Type Response Tobacco Use: 4 or less cigar ettes(less than 1/4 pack)/day in last 30 days. Sex Patient Care team information Personnel Name: Fan Villalpando MD Address: Address: [address] [place] [address] Adult & Pediatric Medicine [address]
--- OUTSIDE RECORDS SUMMARY | 2024-03-12 04:37 | XMS_ITS | Continuity of Care Document ---
Author Organization [facility] Address [address] [place] [address]- Care Team Providers Care Manufacturing Test Technician Name Role Phone Fan Villalpando MD Primary Care Physician [facility] Date[facility]s): 08/20/23 - 09/19/23 [facility] [address] [place], [place] [address] Allergies, Adverse Reactions, Alerts No Known Allergies [...] Comment: [10/15/2018] [facility]#[id number] 2Result Comment: [07/15/2018] [id number] 3Result Comment: lot # [id number] exp sep 21 2010 Medications betamethasone-clotrimazole 0.05%-1% topical cream See Instructions, APPLY TOPICALLY 2 TIMES A DAY NEEDED FOR FOOT RASH, # 15 Gm, 5 Refills, Maintenance, 02/12/23 9:53:00 EDT, [facility] STORE 15288, 30, APPLY TOPICALLY 2 TIMES A DAY [...] 11:21:00 EST, 08/21/23 11:20:00 EST, REC Powder, [facility]/pharmacy #[id number], Partial fill upon patient requestif the prescription [...] 08/21/24 11:28:00 EST, 08/21/23 11:28:00 EST, Ointment, [facility]/pharmacy #[id number], Partial fill upon [...] 74% ( crippled ) on 12/08/17; initial [place]: 14 on 12/08/17 2SOAPP-R: 38 on 12/08/17 3Pain relevant problem list includes: See below [id number] Social History Social History Type Response Tobacco Use: 4 or less cigar ettes(less than 1/4 pack)/day in last 30 days. Sex Patient Care team information Care Team Personnel Name: Deneen Guzman RN Position: [facility] RN Member Role: Primary Care Nurse Name: Mabel Quick RN Position: [facility] MELODY Nurse Member Role: Primary Care Nurse Name: Fan Villalpando MD Position: [facility] Physician - Primary Care Member Role: PCP Address: Address: [address] [place] [address]- [place] Name: Mely Castillo RN Position: [facility] RN Member Role: Primary Care Nurse Name: Torri Richards RN Position: [facility] RN Member Role: Primary Care Nurse Name: Evelyn Hall RN Position: [facility] RN Member Role: Primary Care Nurse Name: Spencer Willard RN Position: [facility] RN Member Role: Primary Care Nurse Name: Alix Milner RN Position: [facility] RN Member Role: Primary Care Nurse Name: Collin Bolanos RN Position: [facility] SN RN Member Role: Primary Care Nurse Name: Sandra Virgen MD Position: [facility] SEMICONDUCTOR PROCESSING TECHNICIAN MD Member Role: Lifetime SEMICONDUCTOR PROCESSING TECHNICIAN Physician Address: Address: [address] [facility] [place] [address]- [place] Name: Rae Cruz NP Position: [facility] PCO Associate Professional Member Role: Primary Care Nurse Address: Address: [address] [facility] [place] [address]- [place] Name: Mary Jo Moeller RN Position: [facility] Onco RN Member Role: Primary Care Nurse Care Team Related Persons Name: NIC WOOD Address: home [address] [place] [address]
--- OUTSIDE RECORDS SUMMARY | 2024-03-12 04:37 | XMS_ITS | Continuity of Care Document ---
Author Organization [facility] Address [address] [place] [address]- Care Team Providers Care Electric Locomotive Firer/Fireman Name Role Phone Drew Barr MD Primary Care Physician Encounter [facility] Date(s): 07/04/20 - 08/10/20 [facility] [address] [place] [id number] Attending Physician: Not on Staff, Attending MD Allergies, Adverse Reactions, Alerts Substance Reaction Severity Status NKA Active Immunizations Given and Recorded Vaccine Date Status Refusal Reason tetanus/diphtheria/pertussis, acel(Tdap) 04/03/19 Given tetanus/diphtheria/pertussis, acel(Tdap) 1 10/15/18 Given influenza virus vaccine, inactivated 2 07/15/18 Gi paulino influenza virus vaccine, inactivated 08/24/14 Give n influenza virus vaccine, inactivated 07/17/12 Give n pneumococcal 23-valent vaccine 3 07/22/09 Given 1Result Comment: [10/15/2018] [facility]#[id number] 2Result Comment: [07/15/2018] [id number] 3Result Comment: lot # [id number] exp sep [...] 11/03/19 12:18:00 EST, Route to Pharmacy Electronically, [facility]... Start Date: 11/03/19 Status: Ordered gabapentin 300 [...] 02/23/20 12:22:00 EDT, Route to Pharmacy Electronically, [facility] #[id number], 160, cm, 10/07/19 10... Start Date: 02/23/20 [...] 01/19/19 10:14:48 EDT, Route to Pharmacy Electronically, [facility] Start Date: 01/19/19 Status: Ordered PredniSONE By [...] tablet, 0 Refills, Maintenance, 05/04/20 20:37:00 EDT, [facility] #92072, 160, cm, 10/07/19 10:44:00 EST, Height, 57.3, [...] 74% ( crippled ) on 12/08/17; initial [place]: 14 on 12/08/17 2SOAPP-R: 38 on 12/08/17 3Pain relevant problem list includes: See below [id number] Social History Social History Type Response Tobacco Use: 4 or less cigar ettes(less than 1/4 pack)/day in last 30 days. Sex
--- OUTSIDE RECORDS SUMMARY | 2024-03-12 04:37 | XMS_ITS | Continuity of Care Document ---
Author Organization [facility] Address [address] [place] [address]- Care Team Providers Care Calender Tender Name Role Phone Sarah Padilla MD Primary Care Physician [phone] Encounter [facility] Date(s): 02/15/21 - 02/22/21 [facility] [address] [place], [place] [address] Attending Physician: Drew Barr MD Allergies, Adverse [...] Given 1Result Comment: [10/15/2018] [facility]#[id number] 2Result Comment: [07/15/2018] [id number] 3Result Comment: lot # [id number] exp sep 21 2010 Medications apixaban 5 mg oral tablet See Instructions, 2 tablet By Mouth 2 times a day for 8 doses and then 1 tablet 2 times a day thereafter, # 48 tablet, 2 Refills, Maintenance, 11/03/20 12:54:00 EST, Tablet, [facility],Partial fill upon patient request if [...] 11/03/19 12:18:00 EST, Route to Pharmacy Electronically, [facility]... Start Date: 11/03/19 Status: Ordered gabapentin 400 mg oral capsule 400 mg, 1, capsule, By Mouth, Daily at bedtime, Take with 300 mg for total of 700 mg q HS, # 30 capsule, Refills 5, Tot. Refills 5, Maintenance, 02/15/21 10:37:00 EDT, Route to Pharmacy Electronically, [facility] #79886, 160, cm, 11/03/20 7:... Start Date: 02/15/21 [...] 74% ( crippled ) on 12/08/17; initial [place]: 14 on 12/08/17 2SOAPP-R: 38 on 12/08/17 3Pain relevant problem list includes: See below [id number] Social History Social History Type Response Tobacco Use: 4 or less cigar ettes(less than 1/4 pack)/day in last 30 days. Sex
--- OUTSIDE RECORDS SUMMARY | 2024-03-12 04:37 | XMS_ITS | Continuity of Care Document ---
Author Organization [facility] Address [address] [place] [address]- Care Team Providers Care Manager Medical Name Role Phone Drew Barr MD Primary Care Physician Encounter [facility] Date(s): 05/04/20 - 06/03/20 [facility] [address] [place] [address]- [facility] Allergies, Adverse Reactions, Alerts Substance Reaction Severity Status NKA Active Immunizations Given and Recorded Vaccine Date Status Refusal Reason tetanus/diphtheria/pertussis, acel(Tdap) 04/03/19 Given tetanus/diphtheria/pertussis, acel(Tdap) 1 10/15/18 Given influenza virus vaccine, inactivated 2 07/15/18 Gi paulino influenza virus vaccine, inactivated 08/24/14 Give n influenza virus vaccine, inactivated 07/17/12 Give n pneumococcal 23-valent vaccine 3 07/22/09 Given 1Result Comment: [10/15/2018] [facility]#[id number] 2Result Comment: [07/15/2018] [id number] 3Result Comment: lot # [id number] exp sep [...] 11/03/19 12:18:00 EST, Route to Pharmacy Electronically, [facility]... Start Date: 11/03/19 Status: Ordered gabapentin 300 [...] 02/23/20 12:22:00 EDT, Route to Pharmacy Electronically, [facility] #75691, 160, cm, 10/07/19 10... Start Date: 02/23/20 [...] 01/19/19 10:14:48 EDT, Route to Pharmacy Electronically, [facility] Start Date: 01/19/19 Status: Ordered Seroquel 50 mg oral tablet 1 tablet = 50 mg, By Mouth, Daily at bedtime, 0 Refills, Maintenance, 08/24/14 13:17:23 EST Start Date: 08/24/14 Status: Ordered Vistaril pamoate 25 mg oral capsule See Instructions, 1 capsule By Mouth daily at bedtime, # 7 capsule, 0 Refills, Soft Stop, 05/04/20 20:37:00 EDT, [facility] #46849, 160, cm, 10/07/19 10:44:00 EST, Height, 57.3, kg, 05/04/20 20:36:00 EDT, Dry Weight Start Date: 05/04/20 Status: Ordered ZyrTEC 10 mg oral tablet = 10 mg, By Mouth, Daily, # 7 tablet, 0 Refills, Maintenance, 05/04/20 20:37:00 EDT, [facility] #[facility], 160, cm, 10/07/19 10:44:00 EST, Height, 57.3, [...] wall bx 11/18 Dr. 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 Sex
--- OUTSIDE RECORDS SUMMARY | 2024-03-12 04:37 | XMS_ITS | Continuity of Care Document ---
Author Organization [facility] Address [address] [place] [address]- Care Team Providers Care Braille Duplicating Machine Operator Name Role Phone Fan Villalpando MD Primary Care Physician [facility] Date(s): 11/07/22 - 12/07/22 [facility] [address] [place], [place] [address] Allergies, Adverse Reactions, [...] 07/22/09 Given 1Result Comment: [10/15/2018] [facility]#[id number] 2Result Comment: [07/15/2018] [id number] 3Result Comment: lot # [id number] exp sep 21 2010 Medications betamethasone-clotrimazole 0.05%-1% topical cream 1 application, Topically, 2 times a day, PRN foot rash, # 15 Gm, 1 Refills, Acute 05/20/23 17:17:00EDT, 05/20/22 17:16:00 EDT, Cream, [facility], Partial fill upon patient request if the [...] 74% ( crippled ) on 12/08/17; initial [place]: 14 on 12/08/17 2SOAPP-R: 38 on 12/08/17 3Pain relevant problem list includes: See below 10700 Social History Social History Type Response Tobacco Use: 4 or less cigar ettes(less than 1/4 pack)/day in last 30 days. Sex Patient Care team information Care Team Personnel Name: Deneen Guzman RN Position: [facility] RN Member Role: Primary Care Nurse Name: Mabel Quick RN Position: [facility] PCO RN Member Role: Primary Care Nurse Name: Fan Villalpando MD Position: [facility] Primary Care Physician Member Role: PCP Address: Address: [address] [place] [address] Adult & [place] [address]- Name: Mely Castillo RN Position: [facility] RN Member Role: Primary Care Nurse Name: Torri Richards RN Position: [facility] RN Member Role: Primary Care Nurse Name: Evelyn Hall RN Position: [facility] RN Member Role: Primary Care Nurse Name: Spencer Willard Position: [facility] RN Member Role: Primary Care Nurse Name: Estephania Yu RN Position: [facility] RN Supv Member Role: Primary Care Nurse Name: Alix Milner RN Position: [facility] RN Member Role: Primary Care Nurse Name: Sandra Virgen MD Position: [facility] PROCUREMENT SERVICES MANAGER MD Member Role: Lifetime PROCUREMENT SERVICES MANAGER Physician Address: Address: [address] [facility] [place] [address]- [place] Name: Rae Cruz RN Position: [facility] RN Member Role: Primary Care Nurse Name: Mary Jo Moeller RN Position: [facility] Onco RN Member Role: Primary Care Nurse Care Team Related Persons Name: NIC WOOD Address: home [address] [place] [address]
--- OUTSIDE RECORDS SUMMARY | 2024-03-12 04:37 | XMS_ITS | Continuity of Care Document ---
Author Organization [facility] Address [address] [place] [address]- Care Team Providers Care Greenhouse Technician Name Role Phone Drew Barr MD Primary Care Physician [phone] [facility] Date(s): 02/28/20 - 03/29/20 [facility] [address] [place] [address]- [facility] Allergies, Adverse Reactions, Alerts Substance Reaction Severity Status NKA Active Immunizations Given and Recorded Vaccine Date Status Refusal Reason tetanus/diphtheria/pertussis, acel(Tdap) 04/03/19 Given tetanus/diphtheria/pertussis, acel(Tdap) 1 10/15/18 Given influenza virus vaccine, inactivated 2 07/15/18 Gi paulino influenza virus vaccine, inactivated 08/24/14 Give n influenza virus vaccine, inactivated 07/17/12 Give n pneumococcal 23-valent vaccine 3 07/22/09 Given 1Result Comment: [10/15/2018] [facility]#[id number] 2Result Comment: [07/15/2018] [id number] 3Result Comment: lot # [id number] exp sep [...] 11/03/19 12:18:00 EST, Route to Pharmacy Electronically, [facility]... Start Date: 11/03/19 Status: Ordered gabapentin [...] 02/23/20 12:22:00 EDT, Route to Pharmacy Electronically, [facility] #[id number], 160, cm, 10/07/19 10... Start Date: 02/23/20 [...] 01/19/19 10:14:48 EDT, Route to Pharmacy Electronically, [facility] Start Date: 01/19/19 Status: Ordered Seroquel 50 [...] 74% ( crippled ) on 12/08/17; initial [place]: 14 on 12/08/17 2SOAPP-R: 38 on 12/08/17 3Pain relevant problem list includes: See below 53058 Social History Social History Type Response Tobacco Use: 4 or less cigar ettes(less than 1/4 pack)/day in last 30 days. Sex
--- OUTSIDE RECORDS SUMMARY | 2024-03-12 04:37 | XMS_ITS | Continuity of Care Document ---
Author Organization [facility] Address [address] [place] [address]- Care Team Providers Care Ginner Name Role Phone Drew Barr MD Primary Care Physician [place] [facility] [place](s[place] 09/07/20 - 09/14/20 [facility] [address] [place] [address]- Attending Physician: Ale Nguyen MD Referring Physician: Drew Barr MD Allergies, [...] 1Result Comment: [10/15/2018] [facility]#[id number] 2Result Comment: [07/15/2018] [id number] 3Result Comment: lot # [id number] exp sep [...] opioid drug. Start Date: 09/03/20 Status: Ordered doxycycline hyclate 100 mg oral capsule 1 capsule = 100 mg, By Mouth, 2 times a day, for 10 days, Take with food, but not with dairy products, # 20 capsule, 0 Refills, Acute 09/17/20 18:42:00 EST, 09/07/20 18:42:00 EST, Capsule, [facility] #73957, Partial fill upon patient request... Start Date: 09/07/20 Stop Date: 09/17/20 Status: Ordered ferrous sulfate 325 mg oral enteric coated tablet 325 mg, 1, tablet, By Mouth, 3 times a day, start 1 per day and increase as tolerated. Take with Vitamin C to help absorption, # 90 tablet, Refills 3, Tot. Refills 3, Maintenance, 11/03/19 12:18:00 EST, Route to Pharmacy Electronically, [facility]... Start Date: 11/03/19 Status: Ordered gabapentin 400 mg oral capsule 400 mg, 1, capsule, By Mouth, Daily at bedtime, Take with 300 mg for total of 700 mg q HS, # 30 capsule, Refills 5, Tot. Refills 5, Maintenance, 02/23/20 12:22:00 EDT, Route to Pharmacy Electronically, [facility] #17231, 160, cm, 10/07/19 10... Start Date: 02/23/20 Status: Ordered Lamictal Tablet By Mouth, Refills 0, Maintenance, 09/03/20 14:18:00 EST, Partial fill upon patient request if the prescription is for a schedule II opioid drug. Start Date: 09/03/20 Status: Ordered methadone 10 mg oral tablet = 35 mg, By Mouth, Daily, dose reported by patient and unverified with clinic at time of this entry, 0 Refills, Maintenance, 09/03/20 14:19:00 EST, Partial fill upon patient request if the prescription is for a schedule II opioid drug. Start Date: 09/03/20 Status: Ordered PredniSONE By Mouth, Daily, 0 Refills, Maintenance, 07/04/20 11:22:00 EST Start Date: 07/04/20 Status: Ordered ZyrTEC 10 mg oral tablet = 10 mg, By Mouth, Daily, # 7 tablet, 0 Refills, Maintenance, 05/04/20 20:37:00 EDT, [facility] #[id number], 160, cm, 10/07/19 10:44:00 EST, Height, 57.3, [...] 74% ( crippled ) on 12/08/17; initial [place]: 14 on 12/08/17 2SOAPP-R: 38 on 12/08/17 3Pain relevant problem list includes: See below 479[address] Vital Signs Most recent to oldest [Reference Range]: 1 Height 160 cm (09/07/20 6:30 PM) Weight 66 kg (09/07/20 6:30 PM) Oxygen Saturation [94-100 %] 98 % (09/07/20 6:30 PM) Pulse Rate [55-90 bpm] 84 bpm (09/07/20 6:30 PM) Body Mass Index [18.5-24.99] 25.78 *H* (09/07/20 6:30 PM) Blood Pressure [90-138/55-84 mm Hg] 126/ 80mm Hg (09/07/20 6:30 PM) Respiratory Rate [16-30 br/min] 16 br/mi n (09/07/20 6:30 PM) Temperature [96.8-100.4 DegF] 98.0 DegF (09/07/20 6:30 PM) Mode of Delivery (Oxygen) Room air (09/07/20 6:30 PM) Blood pressure sites Arm, left (09/07/20 6:30 PM) Temperature Route Temporal (09/07/20 6:30 PM) Weight Obtained Via Standing scale (09/07/20 6:30 PM) Social History Social History Type Response Tobacco Use: 4 or less cigar ettes(less than 1/4 pack)/day in last 30 days. Sex
--- OUTSIDE RECORDS SUMMARY | 2024-03-12 04:37 | XMS_ITS | Continuity of Care Document ---
Author Organization [facility] Address [address] [place] [address]- Care Team Providers Care Test Manager Name Role Phone Drew Barr MD Primary Care Physician [facility] Date(s): 03/01/20 - 03/31/20 [facility] [address] [place] [address]- [facility] Allergies, Adverse Reactions, Alerts Substance Reaction Severity Status NKA Active Immunizations Given and Recorded Vaccine Date Status Refusal Reason tetanus/diphtheria/pertussis, acel(Tdap) 04/03/19 Given tetanus/diphtheria/pertussis, acel(Tdap) 1 10/15/18 Given influenza virus vaccine, inactivated 2 07/15/18 Gi paulino influenza virus vaccine, inactivated 08/24/14 Give n influenza virus vaccine, inactivated 07/17/12 Give n pneumococcal 23-valent vaccine 3 07/22/09 Given 1Result Comment: [10/15/2018] [facility]#[id number] 2Result Comment: [07/15/2018] [id number] 3Result Comment: lot # [id number] exp sep [...] 11/03/19 12:18:00 EST, Route to Pharmacy Electronically, [facility]... Start Date: 11/03/19 Status: Ordered gabapentin [...] 02/23/20 12:22:00 EDT, Route to Pharmacy Electronically, [facility] #74591, 160, cm, 10/07/19 10... Start Date: 02/23/20 [...] 01/19/19 10:14:48 EDT, Route to Pharmacy Electronically, [facility] Start Date: 01/19/19 Status: Ordered Seroquel 50 [...] 74% ( crippled ) on 12/08/17; initial [place]: 14 on 12/08/17 2SOAPP-R: 38 on 12/08/17 3Pain relevant problem list includes: See below 64670 Social History Social History Type Response Tobacco Use: 4 or less cigar ettes(less than 1/4 pack)/day in last 30 days. Sex
--- OUTSIDE RECORDS SUMMARY | 2024-03-12 04:37 | XMS_ITS | Continuity of Care Document ---
Author Organization [facility] Address [address] [place] [address]- Care Team Providers Care Scale Technician Name Role Phone Drew Barr MD Primary Care Physician [phone] [place] [facility] [place] 10/08/19 - 10/18/19 [facility] [address] [place] [address] [facility] Attending Physician: Josefina Skelton Admitting Physician: [...] vaccine 3 07/22/09 Given 1Result Comment: [10/15/2018] [facility]#[id number] 2Result Comment: [07/15/2018] [id number] 3Result Comment: lot # [id number] exp sep [...] 01/19/19 10:14:48 EDT, Route to Pharmacy Electronically, [facility] Start Date: 01/19/19 Status: Ordered Seroquel 50 [...] 74% ( crippled ) on 12/08/17; initial [place]: 14 on 12/08/17 2SOAPP-R: 38 on 12/08/17 3Pain relevant problem list includes: See below 95642 Social History Social History Type Response Tobacco Use: 4 or less cigar ettes(less than 1/4 pack)/day in last 30 days. Sex
--- OUTSIDE RECORDS SUMMARY | 2024-03-12 04:37 | XMS_ITS | Continuity of Care Document ---
Author Organization [facility] Address [address] [place] [address]- Care Team Providers Care Wind Project Manager Name Role Phone Fan Villalpando MD Primary Care Physician Encounter [facility] Date(s): 10/29/21 - 11/28/21 [facility] [address] [place], [place] [address] Attending Physician: Josefina Skelton Admitting Physician: AdmtrJosefina Referring Physician: Admtr, Ar8 [...] vaccine 3 07/22/09 Given 1Result Comment: [07/15/2018] [id number] 2Result Comment: [10/15/2018] [facility]#[id number] 3Result Comment: lot # [id number] exp sep [...] 28 tablet, 0 Refills, Maintenance, 04/25/2114:22:00 EDT, [facility]/pharmacy #0859, 166, cm, 04/25/21 13:44:00 EDT, Height, [...] 11:26:00 EST, 10/04/21 11:26:00 EST, REC Powder, [facility]/pharmacy #0859, Partial fill upon patient request if [...] 74% ( crippled ) on 12/08/17; initial [place]: 14 on 12/08/17 2SOAPP-R: 38 on 12/08/17 3Pain relevant problem list includes: See below 65249 Social History Social History Type Response Tobacco Use: 4 or less cigar ettes(less than 1/4 pack)/day in last 30 days. Sex
--- OUTSIDE RECORDS SUMMARY | 2024-03-12 04:37 | XMS_ITS | Continuity of Care Document ---
Author Organization [facility] Address [address] [place] [address]- Care Team Providers Care Assembler Erector Name Role Phone Sarah Padilla MD Primary Care Physician Encounter [facility] Date(s): 03/01/21 - 03/08/21 [facility] [address] [place] [address]- Attending Physician: Sandra Virgen MD Allergies, Adverse Reactions, Alerts Substance Reaction Severity Status NKA Active Immunizations Given and Recorded Vaccine Date Status Refusal Reason tetanus/diphtheria/pertussis, acel(Tdap) 04/03/19 Given tetanus/diphtheria/pertussis, acel(Tdap) 1 10/15/18 Given influenza virus vaccine, inactivated 2 07/15/18 Gi paulino influenza virus vaccine, inactivated 08/24/14 Give n influenza virus vaccine, inactivated 07/17/12 Give n pneumococcal 23-valent vaccine 3 07/22/09 Given 1Result Comment: [10/15/2018] [facility]#[id number] 2Result Comment: [07/15/2018] [id number] 3Result Comment: lot # [id number] exp sep 21 2010 Medications apixaban 5 mg oral tablet See Instructions, 2 tablet By Mouth 2 times a day for 8 doses and then 1 tablet 2 times a day thereafter, # 48 tablet, 2 Refills, Maintenance, 11/03/20 12:54:00 EST, Tablet, [facility],Partial fill upon patient request [...] 11/03/19 12:18:00 EST, Route to Pharmacy Electronically, [facility]... Start Date: 11/03/19 Status: Ordered gabapentin 400 mg oral capsule 400 mg, 1, capsule, By Mouth, Daily at bedtime, Take with 300 mg for total of 700 mg q HS, # 30 capsule, Refills 5, Tot. Refills 5, Maintenance, 02/15/21 10:37:00 EDT, Route to Pharmacy Electronically, [facility] #[id number], 160, cm, 11/03/20 7:... Start Date: 02/15/21 [...] 74% ( crippled ) on 12/08/17; initial [place]: 14 on 12/08/17 2SOAPP-R: 38 on 12/08/17 3Pain relevant problem list includes: See below 50020 Vital Signs Most recent to oldest [Reference Range]: 1 Height 160 cm (03/01/21 11:04 AM) Weight 64.4 kg (03/01/21 11:04 AM) Body Mass Index [18.5-24.99] 25.16 *H* (03/01/21 11:04 AM) Blood Pressure [90-138/55-84 mm Hg] 124/ 80mm Hg (03/01/21 11:04 AM) Blood pressure sites Arm, left (03/01/21 11:04 AM) Weight Obtained Via Standing scale (03/01/21 11:04 AM) Social History Social History Type Response Tobacco Use: 4 or less cigar ettes(less than 1/4 pack)/day in last 30 days. Sex
--- OUTSIDE RECORDS SUMMARY | 2024-03-12 04:37 | XMS_ITS | Continuity of Care Document ---
Author Organization [facility] Address [address] [place] [address]- Care Team Providers Care Greenhouse Transplanter Name Role Phone Drew Barr MD Primary Care Physician [place] [facility] [place] 12/03/20 - 01/02/21 [facility] [address] [place], [place] [address] Allergies, Adverse Reactions, Alerts Substance [...] Comment: [10/15/2018] [facility]#[id number] 2Result Comment: [07/15/2018] [id number] 3Result Comment: lot # [id number] exp sep 21 2010 Medications apixaban 5 mg oral tablet See Instructions, 2 tablet By Mouth 2 times a day for 8 doses and then 1 tablet 2 times a day thereafter, # 48 tablet, 2 Refills, Maintenance, 11/03/20 12:54:00 EST, Tablet, [facility],Partial fill upon patient request [...] 11/03/19 12:18:00 EST, Route to Pharmacy Electronically, [facility]... Start Date: 11/03/19 Status: Ordered gabapentin 400 mg oral capsule 400 mg, 1, capsule, By Mouth, Daily at bedtime, Take with 300 mg for total of 700 mg q HS, # 30 capsule, Refills 5, Tot. Refills 5, Maintenance, 02/23/20 12:22:00 EDT, Route to Pharmacy Electronically, [facility] #[id number], 160, cm, 10/07/19 10... Start Date: 02/23/20 [...] ( crippled ) on 12/08/17; initial [place]: 14 on 12/08/17 2SOAPP-R: 38 on 12/08/17 3Pain relevant problem list includes: See below 76448 Social History Social History Type Response Tobacco Use: 4 or less cigar ettes(less than 1/4 pack)/day in last 30 days. Sex
--- OUTSIDE RECORDS SUMMARY | 2024-03-12 04:37 | XMS_ITS | Continuity of Care Document ---
Author Organization [facility] Address [address] [place] [address]- Care Team Providers Care Edge Cutter Name Role Phone Drew Barr MD Primary Care Physician [place] [facility] [place] - 05/04/[address] [address]- [facility] Encounter Diagnosis Acute dermatitis(Final) - 05/04/20 Discharge Disposition: A-D/C Home Attending Physician: Brian Boogie MD Admitting Physician: Brian Boogie MD Referring Physician: Not on Staff, Referring [...] vaccine 3 07/22/09 Given 1Result Comment: [10/15/2018] [facility]#[id number] 2Result Comment: [07/15/2018] [id number] 3Result Comment: lot # [id number] exp sep [...] 11/03/19 12:18:00 EST, Route to Pharmacy Electronically, [facility]... Start Date: 11/03/19 Status: Ordered gabapentin 300 [...] 02/23/20 12:22:00 EDT, Route to Pharmacy Electronically, [facility] #[id number], 160, cm, 10/07/19 10... Start Date: 02/23/20 [...] 01/19/19 10:14:48 EDT, Route to Pharmacy Electronically, [email or web address] [id number] Start Date: 01/19/19 Status: Ordered Seroquel 50 mg oral tablet 1 tablet = 50 mg, By Mouth, Daily at bedtime, 0 Refills, Maintenance, 08/24/14 13:17:23 EST Start Date: 08/24/14 Status: Ordered Vistaril pamoate 25 mg oral capsule See Instructions, 1 capsule By Mouth daily at bedtime, # 7 capsule, 0 Refills, Soft Stop, 05/04/20 20:37:00 EDT, [facility] #50912, 160, cm, 10/07/19 10:44:00 EST, Height, 57.3, kg, 05/04/20 20:36:00 EDT, Dry Weight Start Date: 05/04/20 Status: Ordered ZyrTEC 10 mg oral tablet = 10 mg, By Mouth, Daily, # 7 tablet, 0 Refills, Maintenance, 05/04/20 20:37:00 EDT, [facility]080[facility], 160, cm, 10/07/19 10:44:00 EST, Height, 57.3, [...] 74% ( crippled ) on 12/08/17; initial [place]: 14 on 12/08/17 2SOAPP-R: 38 on 12/08/17 3Pain relevant problem list includes: See below 66525 Vital Signs Most recent to oldest [Reference Range]: 1 2 3 Weight 57.3 kg (05/04/20 8:36 PM) 57.3 kg (05/04/20 5:39 PM) 57.3 kg (05/04/20 4:16 PM) Oxygen Saturation [94-100 %] 99 % (05/04/20 8:36 PM) 96 % (05/04/20 4:16 PM) Pulse Rate [55-90 bpm] 72 bpm (05/04/20 8:36 PM) 106 bpm *H* (05/04/20 4:16 PM) Blood Pressure [90-138/55-84 mm Hg] 113/81mm Hg (05/04/20 8:36 PM) 143/91mm Hg *H* (05/04/20 4:16 PM) Respiratory Rate [16-30 br/min] 16 br/min (05/04/20 8:36 PM) 20 br/min (05/04/20 4:16 PM) Temperature [96.8-100.4 DegF] 98.1 DegF (05/04/20 8:36 PM) 98.5 DegF (05/04/20 4:16 PM) Mode of Delivery (Oxygen) Room air (05/04/20 8:36 PM) Room air (05/04/20 4:16 PM) Blood pressure sites Arm, right (05/04/20 8:36 PM) Arm, right (05/04/20 4:16 PM) Temperature Route Oral (05/04/20 8:36 PM) Oral (05/04/20 4:16 PM) Dry Weight 57.3 kg (05/04/20 8:36 PM) 57.3 kg (05/04/20 5:39 PM) 57.3 kg (05/04/20 4:16 PM) Weight Obtained Via Standing scale (05/04/20 4:16 PM) Dry Weight Obtained Via Standing scale (05/04/20 4:16 PM) Social History Social History Type Response Tobacco Use: 4 or less cigar ettes(less than 1/4 pack)/day in last 30 days. Sex
--- OUTSIDE RECORDS SUMMARY | 2024-03-12 04:37 | XMS_ITS | Continuity of Care Document ---
Author Organization [facility] Address [address] [place] [address]- Care Team Providers Care Lorry Weigher Name Role Phone Drew Barr MD Primary Care Physician Encounter [facility] Date(s): 11/22/19 - 11/29/19 [facility] [address] [place] [address]- [facility] Encounter Diagnosis Myositis(Discharge Diagnosis) - 11/22/19 Attending Physician: Drew Barr MD Allergies, Adverse [...] Given 1Result Comment: [10/15/2018] [facility]#[id number] 2Result Comment: [07/15/2018] [id number] 3Result Comment: lot # [id number] exp sep [...] 11/03/19 12:18:00 EST, Route to Pharmacy Electronically, [facility]... Start Date: 11/03/19 Status: Ordered KlonoPIN 1 [...] 01/19/19 10:14:48 EDT, Route to Pharmacy Electronically, [facility] Start Date: 01/19/19 Status: Ordered predniSONE 20 mg oral tablet 3 tablet = 60 mg, By Mouth, Daily, for 30 days, # 90 tablet, 1 Refills, Acute 01/21/20 14:34:00 EDT, 11/22/19 14:34:00 EDT, [facility] #[id number], 160, cm, 10/07/19 10:44:00 EST, Height, 62, [...] 74% ( crippled ) on 12/08/17; initial [place]: 14 on 12/08/17 2SOAPP-R: 38 on 12/08/17 3Pain relevant problem list includes: See below 80120 Diagnosis Diagnosis Type Effective Dates Health Status Clini trish Service Informant Myositis Discharge Diagnosis 11/22/19 Social History Social History Type Response Tobacco Use: 4 or less cigar ettes(less than 1/4 pack)/day in last 30 days. Sex
--- OUTSIDE RECORDS SUMMARY | 2024-03-12 04:37 | XMS_ITS | Continuity of Care Document ---
Author Organization [facility] Address Unknown Care Team Providers Care Intelligence Intern Name Role Phone Sarah Padilla MD Primary Care Physician [phone] [place] [facility](s): 03/27/21 - 04/26/21 [facility] Allergies, Adverse Reactions, Alerts Substance Reaction Severity [...] vaccine 3 07/22/09 Given 1Result Comment: [07/15/2018] [id number] 2Result Comment: [10/15/2018] [facility]#[id number] 3Result Comment: lot # [id number] exp sep [...] 28 tablet, 0 Refills, Maintenance, 04/25/2114:22:00 EDT, [facility]acy #0859, 166, cm, 04/25/21 13:44:00 EDT, Height, [...] Maintenance, 03/27/2116:37:00 EDT, Route to Pharmacy Electronically, [facility]/pharmacy #0859, patient takes this dose in AM [...] 02/15/21 10:37:00 EDT, Route to Pharmacy Electronically, [facility] #76215, 160, cm, 11/03/20 7:... Start Date: 02/15/21 [...] 74% ( crippled ) on 12/08/17; initial [place]: 14 on 12/08/17 2SOAPP-R: 38 on 12/08/17 3Pain relevant problem list includes: See below 65560 Social History Social History Type Response Tobacco Use: 4 or less cigar ettes(less than 1/4 pack)/day in last 30 days. Sex
--- OUTSIDE RECORDS SUMMARY | 2024-03-12 04:37 | XMS_ITS | Continuity of Care Document ---
Author Organization [facility] Address [address] [place] [address]- Care Team Providers Care Gis Software Developer Name Role Phone Fan Villalpando MD Primary Care Physician [place] [facility] Date(s): 12/20/23 - 12/27/23 [facility] [address] [place] [address]- Encounter Diagnosis Scalp laceration(Discharge Diagnosis) - 12/20/23 Leg wound, right(Discharge Diagnosis) - 12/20/23 Attending Physician: Kasandra Wilson MD Referring Physician: Fan Villalpando MD Allergies, [...] vaccine 3 07/22/09 Given 1Result Comment: [10/15/2018] [facility]#[id number] 2Result Comment: [07/15/2018] [id number] 3Result Comment: lot # [id number] exp sep 21 2010 Medications betamethasone-clotrimazole 0.05%-1% topical cream See Instructions, APPLY TOPICALLY 2 TIMES A DAY NEEDED FOR FOOT RASH, # 15 Gm, 5 Refills, Maintenance, 02/12/23 9:53:00 EDT, [facility], 30, APPLY TOPICALLY 2 TIMES A DAY [...] 11:21:00 EST, 08/21/23 11:20:00 EST, REC Powder, [facility]/pharmacy #[id number], Partial fill upon patient [...] 08/21/24 11:28:00 EST, 08/21/23 11:28:00 EST, Ointment, [facility]/pharmacy #0859, Partial fill upon patient [...] opioid drug. Start Date: 10/31/20 Status: Ordered sulfamethoxazole-trimethoprim 800 mg-160 mg oral tablet 1 tablet, By Mouth, 2 times a day, for 7 days, # 14 tablet, 0 Refills, Acute 12/31/23 18:48:00 EDT,12/24/23 18:48:00 EDT, Tablet, [facility]/pharmacy #[id number], Partial fill upon patient request if the prescription is for a schedule II opioid drug., 1 tablet By... Start Date: 12/24/23 Stop Date: 12/31/23 Status: Ordered Problem List Condition Confirmation Course [...] 74% ( crippled ) on 12/08/17; initial [place]: 14 on 12/08/17 2SOAPP-R: 38 on 12/08/17 3Pain relevant problem list includes: See below 20060 Diagnosis Diagnosis Type Effective Dates Health Status Clinical Service Informant Scalp laceration Discharge Diagnosis 12/20/23 Leg wound, right Discharge Diagnosis 12/20/23 Vital Signs Most recent to oldest [Reference Range]: 1 Height 160 cm (12/20/23 9:20 AM) Oxygen Saturation [94-100 %] 98 % (12/20/23 9:20 AM) Pulse Rate [55-90 bpm] 83 bpm (12/20/23 9:20 AM) Blood Pressure [90-138/55-84 mm Hg] 111/ 69mm Hg (12/20/23 9:20 AM) Respiratory Rate [16-30 br/min] 16 br/mi n (12/20/23 9:20 AM) Temperature [96.8-100.4 DegF] 97.2 DegF (12/20/23 9:20 AM) Mode of Delivery (Oxygen) Room air (12/20/23 9:20 AM) Blood pressure sites Arm, left (12/20/23 9:20 AM) Temperature Route Temporal (12/20/23 9:20 AM) Social History Social History Type Response Tobacco Use: 4 or less cigar ettes(less than 1/4 pack)/day in last 30 days. Sex Note * Janina Mix: PERFORM, SIGN, VERIFY Event Display: Patient Education/Instruction Authored Date: [id number] [facility] Care Clinical Summary Name KESHA BERNAL Age 38 Years 1985 PCP Kwasi JOSE, Fan Franz PCP Visit Date 12/20/2023 08:45:00 Additional Instructions: Scheduled Appointments?? Future Appointments ?No Future Appointments Scheduled Follow-Up Instructions ?? Diagnosis Unspecified open wound, right lower leg, initial encounter; Laceration without foreign body of scalp, initial encounter Medications: Please continue your medications until treatment is completed or stopped by your provider. Discuss any questions related to medications with your provider. New Medications [id number], [address], [place] [id number], [phone] Doxycycline (doxycycline hyclate 100 mg oral capsule) 1 capsule Oral twice a day for 7 Days. Refills: 0. Next Dose: Medications to Continue with No Changes These medications were not printed or sent to your pharmacy Betamethasone-Clotrimazole Topical (betamethasone-clotrimazole 0.05%-1% topical cream) APPLY TOPICALLY 2 TIMES A DAY NEEDED FOR FOOT RASH. Refills: 5. Next Dose: Clonazepam (clonazePAM 1 mg oral tablet) 1 tab(s) Oral twice a day as needed anxiety. Next Dose: Duloxetine (Cymbalta 30 mg oral enteric coated capsule) 90 Milligram Oral Daily. do not crush or chew. Next Dose: Methadone 45mg by mouth in the morning and 35mg by mouth in the evening. Next Dose: Miscellaneous Rx (multivitamin with minerals) one tablet by mouth daily. Refills: 3. Next Dose: Mupirocin Topical (mupirocin 2% topical ointment) 1 vaughn Topically 3 times a day as needed skin sores. Refills: 5. Next Dose: Polyethylene Glycol 3350 (MiraLax oral powder for reconstitution) 17 gram Oral Daily. dissolve in 4to 8 oz of beverage. Refills: 0. Next Dose: Quetiapine (SEROquel 50 mg oral tablet) 1 tab(s) Oral twice a day as needed anxiety or sleep. Next Dose: Allergy Info:?? NKA Medications Given This Visit Future Orders ?No future orders Future Orders ?No future orders Vital Signs Height 160 cm Weight BMI Blood Pressure 111 mm Hg/69 mm Hg Temperature 97.2 DegF Pulse Rate 83 bpm Respiratory Rate 16 br/min 02 Sat Mode of Delivery 98 %/Room air You can now view a summary of your hospital visit from the comfort of your home through a free online portal called [employer]. [employer] is a website that allows you to securely view your medical information including discharge summary, medications and follow-up visits. ??You can alsosend a secure electronic message to your doctor???s office to request appointments, renew medications or just ask a question. You can enroll at [email or web address] or register during your next [...] primary care provider, you may find a [facility] provider by calling [facility] [place] Link at [phone]. [facility], in keeping with [facility] guidance, no longer requires face masks for staff, patientsor visitors in most situations. Similar to time spent indoors at other locations, there is the chance that you were exposed to respiratory viruses during your time with us (such as flu or COVID-19).? If you develop symptoms concerning for a viral respiratory infection, please seek testing (and treatment if indicated) from your medical provider or home test kit. For information about the plan of care including goals and instructions for your diagnosis, please see the patient education orders section of this document. Patient Education Materials?? The content of this educational material or handout may have been modified, supplemented, or adapted from its original content and format to support your individualized medical care. Additional Provider Instructions: Patient Care team information Care Team Personnel Name: Deneen Guzman RN Position: [facility] RN Member Role: Primary Care Nurse Name: Mabel Quick RN Position: [facility] AMB Nurse Member Role: Primary Care Nurse Name: Fan Villalpando MD Position: [facility] Physician - Primary Care Member Role: PCP Address: Address: [address] [place] [address] Adult & [place] [address]- [place] Name: Mely Castillo RN Position: [facility] RN Member Role: Primary Care Nurse Name: Torri Richards RN Position: [facility] RN Member Role: Primary Care Nurse Name: Evelyn Hall RN Position: [facility] RN Member Role: Primary Care Nurse Name: Spencer Willard RN Position: [facility] RN Member Role: Primary Care Nurse Name: Alix Milner RN Position: [facility] RN Member Role: Primary Care Nurse Name: Collin Bolanos RN Position: [facility] SN RN Member Role: Primary Care Nurse Name: Sandra Virgen MD Position: [facility] PARALLEL COMPUTING SOFTWARE ENGINEER MD Member Role: [employer] PARALLEL COMPUTING SOFTWARE ENGINEER Physician Address: Address: [address] [facility] [employer] [place] [address]- [place] Name: Mary Jo Garcia RN Position: [facility] Onco RN Member Role: Primary Care Nurse Name: Rae Cruz NP Position: [facility] PCO Associate Professional Member Role: Primary Care Nurse Address: Address: [address] [facility] [place] [address]- Care Team Related Persons Name: NIC WOOD Address: home [address] [place] [place] [address]
--- OUTSIDE RECORDS SUMMARY | 2024-03-12 04:37 | XMS_ITS | Continuity of Care Document ---
Author Organization [facility] Address [address] [place] [address]- Care Team Providers Care Tax Director Name Role Phone Drew Barr MD Primary Care Physician [phone] Encounter [facility] Date(s): 01/11/20 - 02/10/20 [facility] [address] [place] [address]- [facility] Attending Physician: Josefina Skelton Admitting Physician: AdmJosefina [...] 07/22/09 Given 1Result Comment: [10/15/2018] [facility]#[id number] 2Result Comment: [07/15/2018] [id number] 3Result Comment: lot # [id number] exp sep [...] 11/03/19 12:18:00 EST, Route to Pharmacy Electronically, [facility]... Start Date: 11/03/19 Status: Ordered KlonoPIN 1 [...] 01/19/19 10:14:48 EDT, Route to Pharmacy Electronically, [facility] Start Date: 01/19/19 Status: Ordered Seroquel 50 [...] 74% ( crippled ) on 12/08/17; initial [place]: 14 on 12/08/17 2SOAPP-R: 38 on 12/08/17 3Pain relevant problem list includes: See below 63967 Social History Social History Type Response Tobacco Use: 4 or less cigar ettes(less than 1/4 pack)/day in last 30 days. Sex
--- OUTSIDE RECORDS SUMMARY | 2024-03-12 04:37 | XMS_ITS | Continuity of Care Document ---
Author Organization [facility] Address [address] [place] [address]- Care Team Providers Care Readiness Paraprofessional Name Role Phone Kwasi JOSE, Fan Franz Primary Care Physician [phone] Encounter [facility] Date(s): 03/26/22 - 04/25/22 [facility] [address] [place], [place] [address] Allergies, Adverse Reactions, Alerts No [...] 3 07/22/09 Given 1Result Comment: [10/15/2018] [facility]#[id number] 2Result Comment: [07/15/2018] [id number] 3Result Comment: lot # [id number] exp sep 21 2010 Medications cephalexin monohydrate 500 mg oral capsule 1 capsule = 500 mg, By Mouth, 4 times a day, for 7 days, # 28 capsule, 0 Refills, Acute 05/02/22 13:34:00 EDT, 04/25/22 13:34:00 EDT, Capsule, [facility], Partial fill upon patient request ifthe prescription is for a schedule II opioid drug.,... Start Date: 04/25/22 Stop Date: 05/02/22 Status: Ordered clonazePAM 1 mg oral tablet [...] 11:23:00 EST, Route to Pharmacy Electronically, [facility]/pharmacy #0859, 166, cm, 10/04/21 11:05:00 EST, [...] EST, 10/04/21 11:26:00 EST, REC Powder, [facility]/pharmacy #0859, Partial fill upon patient request [...] 74% ( crippled ) on 12/08/17; initial [place]: 14 on 12/08/17 2SOAPP-R: 38 on 12/08/17 3Pain relevant problem list includes: See below 26017 Social History Social History Type Response Tobacco Use: 4 or less cigar ettes(less than 1/4 pack)/day in last 30 days. Sex Care Team Personnel Name: Fan Villalpando MD Address: [address] [place] [address] Adult & Pediatric Medicine [place], [place] [address]
--- OUTSIDE RECORDS SUMMARY | 2024-03-12 04:37 | XMS_ITS | Continuity of Care Document ---
Author Organization [facility] Address [address] [place] [address]- Care Team Providers Care Academic Affairs Vice President Name Role Phone Drew Barr MD Primary Care Physician Encounter [facility] Date(s): 09/30/19 - 10/07/19 [facility] [address] [place] [address]- [facility] Attending Physician: Drew Barr [...] Given 1Result Comment: [10/15/2018] [facility]#[id number] 2Result Comment: [07/15/2018] [id number] 3Result Comment: lot # [id number] exp sep 21 2010 Medications cephalexin monohydrate 500 mg oral capsule 1 capsule = 500 mg, By Mouth, 4 times a day, Please take entire course, # 148 capsule, 0 Refills, Acute 10/11/19 21:00:00 EST, 09/05/19 11:01:00 EST, Capsule, [facility] #79769, 160, cm, 09/02/19 13:38:00 EST, Height, 62, [...] 01/19/19 10:14:48 EDT, Route to Pharmacy Electronically, [facility] Start Date: 01/19/19 Status: Ordered Seroquel 50 [...] 74% ( crippled ) on 12/08/17; initial [place]: 14 on 12/08/17 2SOAPP-R: 38 on 12/08/17 3Pain relevant problem list includes: See below 74444 Vital Signs Most recent to oldest [Reference Range]: 1 Height 160 cm (09/30/19 4:15 PM) Weight 59.5 kg (09/30/19 4:15 PM) Oxygen Saturation [94-100 %] 97 % (09/30/19 4:15 PM) Pulse Rate [55-90 bpm] 93 bpm *H* (09/30/19 4:15 PM) Body Mass Index [18.5-24.99] 23.24 (09/30/19 4:15 PM) Blood Pressure [90-138/55-84 mm Hg] 126/ 90mm Hg (09/30/19 4:15 PM) Social History Social History Type Response Tobacco Use: 4 or less cigar ettes(less than 1/4 pack)/day in last 30 days. Sex
--- OUTSIDE RECORDS SUMMARY | 2024-03-12 04:37 | XMS_ITS | Continuity of Care Document ---
Author Organization [facility] ter Address [address] [place] [address]- Care Team Providers Care Client Relationship Executive Name Role Phone Momo JOSE, Drew Primary Care Physician [phone] Encounter [facility] Date(s): 10/07/19 - 10/07/[address] [address] Attending Physician: Ayaz Harrison II, MD Allergies, Adverse Reactions, Alerts Substance Reaction Severity Status NKA Active Immunizations Given and Recorded Vaccine Date Status Refusal Reason tetanus/diphtheria/pertussis, acel(Tdap) 04/03/19 Given tetanus/diphtheria/pertussis, acel(Tdap) 1 10/15/18 Given influenza virus vaccine, inactivated 2 07/15/18 Gi paulino influenza virus vaccine, inactivated 08/24/14 Give n influenza virus vaccine, inactivated 07/17/12 Give n pneumococcal 23-valent vaccine 3 07/22/09 Given 1Result Comment: [10/15/2018] [facility]#[id number] 2Result Comment: [07/15/2018] [id number] 3Result Comment: lot # [id number] exp sep 21 2010 Medications cephalexin monohydrate 500 mg oral capsule 1 capsule = 500 mg, By Mouth, 4 times a day, Please take entire course, # 148 capsule, 0 Refills, Acute 10/11/19 21:00:00 EST, 09/05/19 11:01:00 EST, Capsule, [id number], 160, cm, 09/02/19 13:38:00 EST, Height, 62, [...] 01/19/19 10:14:48 EDT, Route to Pharmacy Electronically, [facility] Start Date: 01/19/19 Status: Ordered Seroquel 50 [...] 74% ( crippled ) on 12/08/17; initial [place]: 14 on 12/08/17 2SOAPP-R: 38 on 12/08/17 3Pain relevant problem list includes: See below 53353 Social History Social History Type Response Tobacco Use: 4 or less cigar ettes(less than 1/4 pack)/day in last 30 days. Sex
--- OUTSIDE RECORDS SUMMARY | 2024-03-12 04:37 | XMS_ITS | Continuity of Care Document ---
Author Organization [facility] Address [address] [place] [address]- Care Team Providers Care Cashier Ticket Selling Name Role Phone Fan Villalpando MD Primary Care Physician [phone] Encounter [facility] [place] Date(s): 12/24/23 - 12/31/23 [facility] [address] [place] [address]- Encounter Diagnosis Cellulitis, leg(Discharge Diagnosis) - 12/24/23 IVDU (intravenous drug user)(Discharge Diagnosis) - 12/24/23 Attending Physician: Joey JOSE, Sal Y Referring Physician: Fan Villalpando MD Allergies, Adverse [...] 07/22/09 Given 1Result Comment: [10/15/2018] [facility]#[id number] 2Result Comment: [07/15/2018] [id number] 3Result Comment: lot # [id number] exp sep 21 2010 Medications betamethasone-clotrimazole 0.05%-1% topical cream See Instructions, APPLY TOPICALLY 2 TIMES A DAY NEEDED FOR FOOT RASH, # 15 Gm, 5 Refills, Maintenance, 02/12/23 9:53:00 EDT, [facility], 30, APPLY TOPICALLY 2 TIMES A DAY [...] 11:21:00 EST, 08/21/23 11:20:00 EST, REC Powder, [facility]/pharmacy #[id number], Partial fill upon patient requestif [...] 08/21/24 11:28:00 EST, 08/21/23 11:28:00 EST, Ointment, [facility]/pharmacy #[id number], Partial fill upon patient request [...] Condition Confirmation Course Effective Dates Status H ealt Status Informant Anxiety Confirmed Active Bipolar disorder, [...] 74% ( crippled ) on 12/08/17; initial [place]: 14 on 12/08/17 2SOAPP-R: 38 on 12/08/17 3Pain relevant problem list includes: See below 51309 Diagnosis Diagnosis Type Effective Dates Health Status inical Service Informant Cellulitis, leg Discharge Diagnosis 12/24/23 IVDU (intravenous drug user) Discharge Diagnosis 12/24/23 Vital Signs Most recent to oldest [Reference Range]: 1 2 Height 160 cm (12/24/23 6:47 PM) 160 cm (12/24/23 6:14 PM) Oxygen Saturation [94-100 %] 98 % (12/24/23 6:14 PM) Pulse Rate [55-90 bpm] 96 bpm *H* (12/24/23 6:47 PM) 120 bpm *H* (12/24/23 6:14 PM) Blood Pressure [90-138/55-84 mm Hg] 139/ 93mm Hg *H* (12/24/23 6:14 PM) Respiratory Rate [16-30 br/min] 14 br/mi n *L* (12/24/23 6:14 PM) Temperature [96.8-100.4 DegF] 96.8 DegF (12/24/23 6:14 PM) Mode of Delivery (Oxygen) Room air (12/24/23 6:14 PM) Blood pressure sites Arm, right (12/24/23 6:14 PM) Temperature Route Temporal (12/24/23 6:14 PM) Social History Social History Type Response Tobacco Use: 4 or less cigar ettes(less than 1/4 pack)/day in last 30 days. Sex Patient Care team information Care Team Personnel Name: Deneen Guzman RN Position: [facility] RN Member Role: Primary Care Nurse Name: Mabel Quick RN Position: [facility] AMB Nurse Member Role: Primary Care Nurse Name: Fan Villalpando MD Position: [facility] Physician - Primary Care Member Role: PCP Address: Address: [address] [place] [address] Adult & Pediatric Medicine [address] Name: Mely Castillo RN Position: [facility] RN Member Role: Primary Care Nurse Name: Torri Richards RN Position: S RN Member Role: Primary Care Nurse Name: Evelyn Hall RN Position: [facility] RN Member Role: Primary Care Nurse Name: Spencer Willard RN Position: [facility] RN Member Role: Primary Care Nurse Name: Alix Milner RN Position: S RN Member Role: Primary Care Nurse Name: Collin Bolanos RN Position: [facility] SN RN Member Role: Primary Care Nurse Name: Sandra Virgen MD Position: [facility] DUMPER OPERATOR MD Member Role: Lifetime DUMPER OPERATOR Physician Address: Address: [address] [place] [address]- [place] Name: Mary Jo Garcia RN Position: [facility] Onco RN Member Role: Primary Care Nurse Name: Anthony MULLINS, Rae Pyle Position: [facility] PCO Associate Professional Member Role: Primary Care Nurse Address: Address: [address] [facility] [place] [address]- Care Team Related Persons Name: NIC WOOD Address: home [address] [place] [address]
--- OUTSIDE RECORDS SUMMARY | 2024-03-12 04:37 | XMS_ITS | Continuity of Care Document ---
Author Organization [facility] Address [address] [place] [address]- Care Team Providers Care Sales Development Associate Name Role Phone Fan Villalpando MD Primary Care Physician Encounter [facility] [place] Date(s): 08/27/22 - 09/26/22 [facility] [address] [place], [place] [address] Allergies, Adverse Reactions, Alerts No [...] 1Result Comment: [10/15/2018] [facility]#[id number] 2Result Comment: [07/15/2018] [id number] 3Result Comment: lot # [id number] exp sep 21 2010 Medications betamethasone-clotrimazole 0.05%-1% topical cream 1 application, Topically, 2 times a day, PRN foot rash, # 15 Gm, 1 Refills, Acute 05/20/23 17:17:00EDT, 05/20/22 17:16:00 EDT, Cream, [facility]/pharmacy #[id number], Partial fill upon patient request if the [...] 10/04/21 11:23:00 EST, Route to Pharmacy Electronically, [facility]/pharmacy #0859, 166, cm, 10/04/21 11:05:00 [...] 11:26:00 EST, 10/04/21 11:26:00 EST, REC Powder, [facility]/pharmacy #0859, Partial fill upon patient [...] 74% ( crippled ) on 12/08/17; initial [place]: 14 on 12/08/17 2SOAPP-R: 38 on 12/08/17 3Pain relevant problem list includes: See below 40078 Social History Social History Type Response Tobacco Use: 4 or less cigar ettes(less than 1/4 pack)/day in last 30 days. Sex Patient Care team information Care Team Personnel Name: Deneen Guzman RN Position: [facility] RN Member Role: Primary Care Nurse Name: Mabel Quick RN Position: [facility] PCO RN Member Role: Primary Care Nurse Name: Fan Villalpando MD Position: [facility] Primary Care Physician Member Role: PCP Address: Address: [address] [place] [address] Adult & Pediatric Medicine [place], [place] [address] Name: Mely Castillo RN Position: S RN Member Role: Primary Care Nurse Name: Torri Richards RN Position: [facility] RN Member Role: Primary Care Nurse Name: Spencer Willard Position: S RN Member Role: Primary Care Nurse Name: Estephania Yu RN Position: S RN Supv Member Role: Primary Care Nurse Name: Evelyn Joy RN Position: S RN Member Role: Primary Care Nurse Name: Alix Milner RN Position: S RN Member Role: Primary Care Nurse Name: Sandra Virgen MD Position: [facility] PARISH VISITOR MD Member Role: Lifetime PARISH VISITOR Physician Address: Address: [address] [place] [address]'s [facility] [place] [address]- Name: Rae Cruz RN Position: [facility] RN Member Role: Primary Care Nurse Name: Mary Jo Moeller RN Position: [facility] Onco RN Member Role: Primary Care Nurse Care Team Related Persons Name: NIC WOOD Address: home [address] [place] [address]
--- OUTSIDE RECORDS SUMMARY | 2024-03-12 04:37 | XMS_ITS | Continuity of Care Document ---
Author Organization [facility] Address [address] [place] [address]- Care Team Providers Care Captain/Check Airman Name Role Phone Drew Barr MD Primary Care Physician [phone] Encounter [facility] [place] Date(s): 11/28/20 - 12/28/20 [facility] [address] [place], [place] [address] Allergies, Adverse Reactions, Alerts Substance Reaction Severity Status NKA Active Immunizations Given and Recorded Vaccine Date Status Refusal Reason tetanus/diphtheria/pertussis, acel(Tdap) 04/03/19 Given tetanus/diphtheria/pertussis, acel(Tdap) 1 10/15/18 Given influenza virus vaccine, inactivated 2 07/15/18 Gi paulino influenza virus vaccine, inactivated 08/24/14 Give n influenza virus vaccine, inactivated 07/17/12 Give n pneumococcal 23-valent vaccine 3 07/22/09 Given 1Result Comment: [10/15/2018] [facility]#[id number] 2Result Comment: [07/15/2018] [id number] 3Result Comment: lot # [id number] exp sep 21 2010 Medications apixaban 5 mg oral tablet See Instructions, 2 tablet By Mouth 2 times a day for 8 doses and then 1 tablet 2 times a day thereafter, # 48 tablet, 2 Refills, Maintenance, 11/03/20 12:54:00 EST, Tablet, [facility],Partial fill upon patient request if [...] 11/03/19 12:18:00 EST, Route to Pharmacy Electronically, [facility]... Start Date: 11/03/19 Status: Ordered gabapentin 400 mg oral capsule 400 mg, 1, capsule, By Mouth, Daily at bedtime, Take with 300 mg for total of 700 mg q HS, # 30 capsule, Refills 5, Tot. Refills 5, Maintenance, 02/23/20 12:22:00 EDT, Route to Pharmacy Electronically, [facility] #[id number], 160, cm, 10/07/19 10... Start Date: 02/23/20 [...] 74% ( crippled ) on 12/08/17; initial [place]: 14 on 12/08/17 2SOAPP-R: 38 on 12/08/17 3Pain relevant problem list includes: See below 70689 Social History Social History Type Response Tobacco Use: 4 or less cigar ettes(less than 1/4 pack)/day in last 30 days. Sex
--- OUTSIDE RECORDS SUMMARY | 2024-03-12 04:37 | XMS_ITS | Continuity of Care Document ---
Author Organization [facility] Address [address] [place] [address]- Care Team Providers Care Field Artillery Fire Control Man Name Role Phone Drew Barr MD Primary Care Physician Encounter [facility] [place] Date(s): 01/11/20 - 01/18/20 [facility] [address] [address]- [facility] Attending Physician: Radha Kramer MD Admitting [...] 07/22/09 Given 1Result Comment: [10/15/2018] [facility]#[id number] 2Result Comment: [07/15/2018] [id number] 3Result Comment: lot # [id number] exp sep [...] 11/03/19 12:18:00 EST, Route to Pharmacy Electronically, [facility] Start Date: 11/03/19 Status: Ordered KlonoPIN 1 [...] 01/19/19 10:14:48 EDT, Route to Pharmacy Electronically, [facility] Start Date: 01/19/19 Status: Ordered predniSONE 20 mg oral tablet 3 tablet = 60 mg, By Mouth, Daily, for 30 days, # 90 tablet, 1 Refills, Acute 01/21/20 14:34:00 EDT, 11/22/19 14:34:00 EDT, [facility] #[id number], 160, cm, 10/07/19 10:44:00 EST, Height, 62, [...] 74% ( crippled ) on 12/08/17; initial [place]: 14 on 12/08/17 2SOAPP-R: 38 on 12/08/17 3Pain relevant problem list includes: See below 57[address] Social History Social History Type Response Tobacco Use: 4 or less cigar ettes(less than 1/4 pack)/day in last 30 days. Sex
--- OUTSIDE RECORDS SUMMARY | 2024-03-12 04:37 | XMS_ITS | Continuity of Care Document ---
Author Organization [facility] Address [address] [place] [address]- Care Team Providers Care Supervising Airplane Pilot Name Role Phone Fan Villalpando MD Primary Care Physician [phone] Encounter [facility] Date(s): 08/21/23 - 08/28/23 [facility] [address] [place], [place] [address] Encounter Diagnosis IVDU (intravenous drug user)(Discharge Diagnosis) - 08/21/23 Bipolar disorder, curr episode depressed, severe, w/psychotic features(Discharge Diagnosis) - 08/21/23 Hodgkin lymphoma(Discharge Diagnosis) - 08/21/23 Attending Physician: Fan Villalpando MD Allergies, Adverse [...] [10/15/2018] [facility]#[id number] 2Result Comment: [07/15/2018] [id number] 3Result Comment: lot # [id number] exp sep 21 2010 Medications betamethasone-clotrimazole 0.05%-1% topical cream See Instructions, APPLY TOPICALLY 2 TIMES A DAY NEEDED FOR FOOT RASH, # 15 Gm, 5 Refills, Maintenance, 02/12/23 9:53:00 EDT, [facility] 95[facility], 30, APPLY TOPICALLY 2 TIMES A DAY [...] 11:21:00 EST, 08/21/23 11:20:00 EST, REC Powder, [facility]/pharmacy #[id number], Partial fill upon patient [...] 08/21/24 11:28:00 EST, 08/21/23 11:28:00 EST, Ointment, [facility] #0859, Partial fill upon patient [...] 74% ( crippled ) on 12/08/17; initial [place]: 14 on 12/08/17 2SOAPP-R: 38 on 12/08/17 3Pain relevant problem list includes: See below 19172 Diagnosis Diagnosis Type Effective Dates Health Status Cl inical Service Informant IVDU (intravenous drug user) Discharge Diagnosis 12/21/23 Bipolar disorder, curr episode depressed, severe, w/psychotic features Discharge Diagnosis 08/21/23 Hodgkin lymphoma Discharge Diagnosis 08/21/23 Vital Signs Most recent to oldest [Reference Range]: 1 Height 160 cm (08/21/23 11:07 AM) Weight 62.7 kg (08/21/23 11:07 AM) Oxygen Saturation [94-100 %] 94 % (08/21/23 11:07 AM) Pulse Rate [55-90 bpm] 104 bpm *H* (08/21/23 11:07 AM) Body Mass Index [18.5-24.99 kg/m2] 24.49 kg/m2 (08/21/23 11:07 AM) Blood Pressure [90-138/55-84 mm Hg] 120/ 81mm Hg (08/21/23 11:07 AM) Mode of Delivery (Oxygen) Room air (08/21/23 11:07 AM) Blood pressure sites Arm, left (08/21/23 11:07 AM) Dry Weight 62.7 kg (08/21/23 11:07 AM) Weight Obtained Via Standing scale (08/21/23 11:07 AM) Dry Weight Obtained Via Standing scale (08/21/23 11:07 AM) Social History Social History Type Response Tobacco Use: 4 or less cigar ettes(less than 1/4 pack)/day in last 30 days. Sex Note * Reny Sequeira: PERFORM, SIGN, VERIFY Event Display: Patient Education/Instruction Authored Date: [id number] [facility] *[facility] Adult Ped Clinical Summary Name KESHA BERNAL Age 38 Years 1985 PCP Fan Villalpando MD PCP [facility]# [phone] Visit Date 08/21/2023 11:00:00 Additional Instructions: Scheduled Appointments?? Future Appointments [address],??[place],??[address] ?Phone:??[phone]?Fax:??-- ?Appt. Date:??08/27/2023?7:45 AM ?Scheduled Provider:??3300 CT Rm 2 Follow-Up Instructions ?? Diagnosis Encounter for general adult medical examination without abnormal findings Medications: Please continue your medications until treatment is completed or stopped by your provider. Discuss any questions related to medications with your provider. New Medications [facility]/pharmacy #[id number], [address] [place], [place] [id number], [phone] Miscellaneous Rx (multivitamin with minerals) one tablet by mouth daily. Refills: 3. Next Dose: Mupirocin Topical (mupirocin 2% topical ointment) 1 vaughn Topically 3 times a day as needed skin sores. Refills: 5. Next Dose: Polyethylene Glycol 3350 (MiraLax oral powder for reconstitution) 17 gram Oral Daily. dissolve in 4to 8 oz of beverage. Refills: 0. Next Dose: Medications to Continue [...] morning and 25mg by mouth in the evening. Next Dose: Quetiapine (SEROquel 50 mg oral tablet) 1 tab(s) Oral twice a day as needed anxiety or sleep. Next Dose: No Longer Take the Following Medications Gabapentin (gabapentin 400 mg oral capsule) 1 capsule Oral Daily at Bedtime. Take with 300 mg for total of 700 mg q HS. Refills: 11. Allergy Info:?? NKA Medications Given This Visit Future Orders ?Comprehensive Metabolic Panel? Order Date:08/21/23?- Complete on or after?08/21/23 ?CBC w/ Differential? Order Date:08/21/23?- Complete on or after?08/21/23 Vital Signs Height 160 cm Weight 62.7 kg BMI 24.49 kg/m2 Blood Pressure 120 mm Hg/81 mm Hg Temperature Pulse Rate 104 bpm Respiratory Rate 02 Sat Mode of Delivery 94 %/Room air You can now view a summary of your hospital visit from the comfort of your home through a free online portal called [employer]. [employer] is a website that allows you to securely view your medical information including discharge summary, medications and follow-up visits. ??You can alsosend a secure electronic message to your doctor???s office to request appointments, renew medications or just ask a question. You can enroll at [email or web address] or register during your next office visit. [...] primary care provider, you may find a [facility] provider by calling [facility] at [phone]. [facility], in keeping with [facility] guidance, no longer requires face masks for [...] Team Personnel Name: Deneen Guzman RN Position: [facility] RN Member Role: Primary Care Nurse Name: Mabel Quick RN Position: [facility] AMB Nurse Member Role: Primary Care Nurse Name: Fan Villalpando MD Position: [facility] Physician - Primary Care Member Role: PCP Address: Address: [address] [place] [address] Adult [place] [address]- Name: Mely Castillo RN Position: [facility] RN Member Role: Primary Care Nurse Name: Torri Richards RN Position: [facility] RN Member Role: Primary Care Nurse Name: Evelyn Hall RN Position: [facility] RN Member Role: Primary Care Nurse Name: Spencer Willard RN Position: [facility] RN Member Role: Primary Care Nurse Name: Alix Milner RN Position: [facility] RN Member Role: Primary Care Nurse Name: Collin Bolanos RN Position: [facility] RN Member Role: Primary Care Nurse Name: Sandra Virgen MD Position: [facility] SHIP FASTENER MD Member Role: Lifetime SHIP FASTENER Physician Address: Address: [address] [place] [address]- [place] Name: Anthony MULLINS, Rae Pyle Position: [facility] PCO Associate Professional Member Role: Primary Care Nurse Address: Address: [address] [place] [address] [facility] [place] [address]- [place] Name: Mary Jo Moeller RN Position: [facility] Onco RN Member Role: Primary Care Nurse Care Team Related Persons Name: NIC WOOD Address: home [address] [place] [address]
--- OUTSIDE RECORDS SUMMARY | 2024-03-12 04:37 | XMS_ITS | Continuity of Care Document ---
Author Organization [facility] Address [address] [place] [address]- Care Team Providers Care Etl Software Engineer Name Role Phone Fan Villalpando MD Primary Care Physician [facility] Date(s): 11/06/22 - 12/06/22 [facility] [address] [place], [place] [email or web address] Allergies, Adverse Reactions, Alerts No Known Allergies [...] 3 07/22/09 Given 1Result Comment: [10/15/2018] [facility]#[id number] 2Result Comment: [07/15/2018] [id number] 3Result Comment: lot # [id number] exp sep 21 2010 Medications betamethasone-clotrimazole 0.05%-1% topical cream 1 application, Topically, 2 times a day, PRN foot rash, # 15 Gm, 1 Refills, Acute 05/20/23 17:17:00EDT, 05/20/22 17:16:00 EDT, Cream, [id number], Partial fill upon patient request if the [...] 74% ( crippled ) on 12/08/17; initial [place]: 14 on 12/08/17 2SOAPP-R: 38 on 12/08/17 3Pain relevant problem list includes: See below [id number] Social History Social History Type Response Tobacco Use: 4 or less cigar ettes(less than 1/4 pack)/day in last 30 days. Sex Patient Care team information Care Team Personnel Name: Deneen Guzman RN Position: [facility] RN Member Role: Primary Care Nurse Name: Mabel Quick RN Position: [facility] PCO RN Member Role: Primary Care Nurse Name: Fan Villalpando MD Position: [facility] Primary Care Physician Member Role: PCP Address: Address: [address] [place] [address] Adult [place] [address]- Name: Mely Castillo RN Position: [facility] RN Member Role: Primary Care Nurse Name: Torri Richards RN Position: [facility] RN Member Role: Primary Care Nurse Name: Evelyn Hall RN Position: [facility] RN Member Role: Primary Care Nurse Name: Spencer Willard Position: [facility] RN Member Role: Primary Care Nurse Name: Estephania Yu RN Position: [facility] RN Supv Member Role: Primary Care Nurse Name: Alix Milner RN Position: [facility] RN Member Role: Primary Care Nurse Name: Sandra Virgen MD Position: [facility] MANUFACTURING SPECIALIST MD Member Role: Lifetime MANUFACTURING SPECIALIST Physician Address: Address: [address] [facility] [place] [address]- [place] Name: Rae Cruz RN Position: [facility] RN Member Role: Primary Care Nurse Name: Mary Jo Moeller RN Position: [facility] Onco RN Member Role: Primary Care Nurse Care Team Related Persons Name: NIC WOOD Address: home [address] [place] [address]
--- OUTSIDE RECORDS SUMMARY | 2024-03-12 04:37 | XMS_ITS | Continuity of Care Document ---
Author Organization [facility] Address [address] [place] [address]- Care Team Providers Care Svp Group Director Name Role Phone Sarah Padilla MD Primary Care Physician Encounter [facility] Date(s): 03/16/21 - 04/15/21 [facility] [address] [place], [place] [address] Allergies, Adverse Reactions, Alerts Substance [...] Given 1Result Comment: [10/15/2018] [facility]#[id number] 2Result Comment: [07/15/2018] [id number] 3Result Comment: lot # [id number] exp sep 21 2010 Medications apixaban 5 mg oral tablet See Instructions, 2 tablet By Mouth 2 times a day for 8 doses and then 1 tablet 2 times a day thereafter, # 48 tablet, 2 Refills, Maintenance, 11/03/20 12:54:00 EST, Tablet, [facility],Partial fill upon patient request [...] 11/03/19 12:18:00 EST, Route to Pharmacy Electronically, [facility]... Start Date: 11/03/19 Status: Ordered Flagyl 500 [...] Maintenance, 03/27/2116:37:00 EDT, Route to Pharmacy Electronically, [facility]/pharmacy #[id number], patient takes this dose in AM -with [...] 02/15/21 10:37:00 EDT, Route to Pharmacy Electronically, [facility] #[id number], 160, cm, 11/03/20 7:... Start Date: 02/15/21 [...] opioid drug. Start Date: 11/03/20 Status: Ordered metroNIDAZOLE 500 mg oral tablet 1 tablet = 500 mg, By Mouth, Every 12 hours, for 7 days, # 14 tablet, 0 Refills, Acute 04/17/21 12:18:00 EDT, 04/10/21 12:18:00 EDT, Tablet, [facility]/pharmacy #[id number], Partial fill upon patient request if the prescription is for a schedule II opioid drug., 1... Start Date: 04/10/21 Stop Date: 04/17/21 Status: Ordered SEROquel 50 mg oral tablet [...] jabari st wall bx 11/18 Dr. 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 Sex
--- OUTSIDE RECORDS SUMMARY | 2024-03-12 04:37 | XMS_ITS | Continuity of Care Document ---
Author Organization [facility] Address [address] [place] [address]- Care Team Providers Care Patrol Driver Name Role Phone Drew Barr MD Primary Care Physician Encounter [facility] Date(s): 03/29/20 - 04/28/20 [facility] [address] [place] [address]- [facility] Attending Physician: Josefina Skelton Admitting Physician: Josefina [...] 1Result Comment: [10/15/2018] [facility]#[id number] 2Result Comment: [07/15/2018] [id number] 3Result Comment: lot # [id number] exp sep [...] 11/03/19 12:18:00 EST, Route to Pharmacy Electronically, [facility]... Start Date: 11/03/19 Status: Ordered gabapentin [...] 02/23/20 12:22:00 EDT, Route to Pharmacy Electronically, [facility] #[id number], 160, cm, 10/07/19 10... Start Date: 02/23/20 [...] 01/19/19 10:14:48 EDT, Route to Pharmacy Electronically, [facility] [id number] Start Date: 01/19/19 Status: Ordered predniSONE 20 mg oral tablet 1 tablet = 20 mg, By Mouth, Daily, for 5 days, Combine with your daily dose of Prednisone 20 mg fora total of 40 mg for the next 5 days., # 5 tablet, 0 Refills, Acute 05/03/20 14:49:00 EDT, 04/28/2014:49:00 EDT, [facility] #[id number], 160, cm,... Start Date: 04/28/20 Stop Date: 05/03/20 Status: Ordered Seroquel 50 mg oral tablet [...] 74% ( crippled ) on 12/08/17; initial [place]: 14 on 12/08/17 2SOAPP-R: 38 on 12/08/17 3Pain relevant problem list includes: See below [id number] Social History Social History Type Response Tobacco Use: 4 or less cigar ettes(less than 1/4 pack)/day in last 30 days. Sex
--- OUTSIDE RECORDS SUMMARY | 2024-03-12 04:37 | XMS_ITS | Continuity of Care Document ---
Author Organization [facility] Address [address] [place] [address]- Care Team Providers Care Haul Cane Brakeman Name Role Phone Fan Villalpando MD Primary Care Physician Encounter [facility] Date(s): 07/29/21 - 08/28/21 [facility] [address] [place], [place] [address] Allergies, Adverse Reactions, Alerts Substance [...] vaccine 3 07/22/09 Given 1Result Comment: [07/15/2018] [id number] 2Result Comment: [10/15/2018] [facility]#[id number] 3Result Comment: lot # [id number] exp sep [...] 28 tablet, 0 Refills, Maintenance, 04/25/2114:22:00 EDT, [facility]/pharmacy #[id number], 166, cm, 04/25/21 13:44:00 EDT, [...] 74% ( crippled ) on 12/08/17; initial [place]: 14 on 12/08/17 2SOAPP-R: 38 on 12/08/17 3Pain relevant problem list includes: See below 72198 Social History Social History Type Response Tobacco Use: 4 or less cigar ettes(less than 1/4 pack)/day in last 30 days. Sex
--- OUTSIDE RECORDS SUMMARY | 2024-03-12 04:37 | XMS_ITS | Continuity of Care Document ---
Author Organization [facility] Address [address] [place] [address]- Care Team Providers Care Bite Block Maker Name Role Phone Fan Villalpando MD Primary Care Physician [phone] Encounter [facility] Date(s): 12/24/23 - 01/23/24 [facility] [address] [place] [address]- Attending Physician: Josefina Skelton Admitting Physician: AdmtrJosefina [...] vaccine 3 07/22/09 Given 1Result Comment: [10/15/2018] [facility]#[id number] 2Result Comment: [07/15/2018] [id number] 3Result Comment: lot # [id number] exp sep 21 2010 Medications betamethasone-clotrimazole 0.05%-1% topical cream See Instructions, APPLY TOPICALLY 2 TIMES A DAY NEEDED FOR FOOT RASH, # 15 Gm, 5 Refills, Maintenance, 02/12/23 9:53:00 EDT, [facility] [id number], 30, APPLY TOPICALLY 2 TIMES A DAY [...] 11:21:00 EST, 08/21/23 11:20:00 EST, REC Powder, [facility]/pharmacy #[id number], Partial fill upon patient requestif the [...] 08/21/24 11:28:00 EST, 08/21/23 11:28:00 EST, Ointment, [facility]/pharmacy #[id number], Partial fill upon patient [...] 74% ( crippled ) on 12/08/17; initial [place]: 14 on 12/08/17 2SOAPP-R: 38 on 12/08/17 3Pain relevant problem list includes: See below [id number] Social History Social History Type Response Tobacco Use: 4 or less cigar ettes(less than 1/4 pack)/day in last 30 days. Sex Patient Care team information Care Team Personnel Name: Deneen Guzman RN Position: [facility] RN Member Role: Primary Care Nurse Name: Mabel Quick RN Position: [facility] AMB Nurse Member Role: Primary Care Nurse Name: Fan Villalapndo MD Position: [facility] Physician - Primary Care Member Role: PCP Address: Address: [address] [place] [address] Adult & [place] [address]- [place] Name: Mely Castillo RN Position: [facility] RN Member Role: Primary Care Nurse Name: Evelyn Hall RN Position: [facility] RN Member Role: Primary Care Nurse Name: Spencer Willard RN Position: [facility] RN Member Role: Primary Care Nurse Name: Alix Milner RN Position: [facility] RN Member Role: Primary Care Nurse Name: Collin Bolanos RN Position: [facility] SN RN Member Role: Primary Care Nurse Name: Torri Kirkpartick RN Position: [facility] RN Member Role: Primary Care Nurse Name: Sandra Virgen MD Position: [facility] KITCHEN SUPERVISOR MD Member Role: Lifetime KITCHEN SUPERVISOR Physician Address: Address: [address] [place] [address]- [place] Name: Mary Jo Garcia RN Position: [facility] Onco RN Member Role: Primary Care Nurse Name: Rae Cruz NP Position: [facility] PCO Associate Professional Member Role: Primary Care Nurse Address: Address: [address] [facility] [place] [address]- [place] Care Team Related Persons Name: NIC WOOD Address: home [address] [place] [address]
--- OUTSIDE RECORDS SUMMARY | 2024-03-12 04:38 | XMS_ITS | Continuity of Care Document ---
Author Organization [facility] Address [address] [place] [address]- Care Team Providers Care Slot Machine Repairer Name Role Phone Fan Villalpando MD Primary Care Physician Encounter [facility] Date(s): 11/11/22 - 11/18/22 [facility] [address] [place], [place] [address] Encounter Diagnosis Cellulitis of left hand(Discharge Diagnosis) - 11/11/22 History of opioid abuse(Discharge Diagnosis) - 11/11/22 Attending Physician: Fan Villalpando MD Allergies, Adverse [...] vaccine 3 07/22/09 Given 1Result Comment: [10/15/2018] [facility]#[id number] 2Result Comment: [07/15/2018] [id number] 3Result Comment: lot # [id number] exp sep 21 2010 Medications Bactrim DS 800 mg-160 mg oral tablet 1 tablet, By Mouth, 2 times a day, for 10 days, # 20 tablet, 0 Refills, Acute 11/21/22 13:33:00 EDT, 11/11/22 13:33:00 EDT, Tablet, [facility]/pharmacy #[id number], Partial fill upon patient request if the prescription is for a schedule II opioid drug., 1 tablet B... Start Date: 11/11/22 Stop Date: 11/21/22 Status: Ordered betamethasone-clotrimazole 0.05%-1% topical cream 1 application, Topically, 2 times a day, PRN foot rash, # 15 Gm, 1 Refills, Acute 05/20/23 17:17:00EDT, 05/20/22 17:16:00 EDT, Cream, [facility]/pharmacy #[id number], Partial fill upon patient request if the [...] ( crippled ) on 12/08/17; initial [place]: 14 on 12/08/17 2SOAPP-R: 38 on 12/08/17 3Pain relevant problem list includes: See below [id number] Diagnosis Diagnosis Type Effective Dates Health Status Clinical Service Informant Cellulitis of left hand Discharge Diagnosis 11/11/22 History of opioid abuse Discharge Diagnosis 11/11/22 Vital Signs Most recent to oldest [Reference Range]: 1 Height 160 cm (11/11/22 12:50 PM) Weight 62.7 kg (11/11/22 12:50 PM) Oxygen Saturation [94-100 %] 98 % (11/11/22 12:50 PM) Pulse Rate [55-90 bpm] 126 bpm *H* (11/11/22 12:50 PM) Body Mass Index [18.5-24.99 kg/m2] 24.49 kg/m2 (11/11/22 12:50 PM) Blood Pressure [90-138/55-84 mm Hg] 104/ 70mm Hg (11/11/22 12:50 PM) Mode of Delivery (Oxygen) Room air (11/11/22 12:50 PM) Blood pressure sites Arm, right (11/11/22 12:50 PM) Weight Obtained Via Standing scale (11/11/22 12:50 PM) Social History Social History Type Response Tobacco Use: 4 or less cigar ettes(less than 1/4 pack)/day in last 30 days. Sex Note * Zita Garcia: PERFORM, SIGN, VERIFY Event Display: Patient Education/Instruction Authored Date: [id number] [facility] *No Edge Adult Ped Clinical Summary Name KESHA BERNAL Age 37 Years 1985 PCP Fan [facility]pando [id number] Visit Date 11/11/2022 12:38:00 Patient Instructions chest specialty appointment as scheduled, enter detox amy as discussed, and avoid any further iv drug use; stop doxycycline and try bactrim ds twice daily for ten days; call if your symptoms worsen or change Additional Instructions: Scheduled Appointments?? Future Appointments ?No Future Appointments Scheduled Follow-Up Instructions ?? Diagnosis Medications: Please continue your medications until treatment is completed or stopped by your provider. Discuss any questions related to medications with your provider. New Medications [id number], [address], [place] [id number], [phone] Sulfamethoxazole/Trimethoprim (Bactrim DS 800 mg-160 mg oral tablet) 1 tab(s) Oral twice a day for 10 Days. Refills: 0. Next Dose: Medications to [...] mg q HS. Refills: 11. Next Dose: Quetiapine (SEROquel 50 mg oral tablet) 1 tab(s) Oral twice a day as needed anxiety or sleep. Next Dose: No Longer Take the Following Medications Mupirocin Topical (mupirocin 2% topical ointment) 1 vaughn Topically 3 times a day as needed skin sores. Refills: 1. Allergy Info:?? NKA Medications Given This Visit Future Orders ?No future orders Vital Signs Height 160 cm Weight 62.7 kg BMI 24.49 kg/m2 Blood Pressure 104 mm Hg/70 mm Hg Temperature Pulse Rate 126 bpm Respiratory Rate 02 Sat Mode of Delivery 98 %/Room air You can now view a summary of your hospital visit from the comfort of your home through a free online portal called AKT. AKT is a website that allows you to securely view your medical information including discharge summary, medications and follow-up visits. ??You can alsosend a secure electronic message to your doctor???s office to request appointments, renew medications or just ask a question. You can enroll at [email or web address] or register during your next office visit. [...] provider, you may find a [facility] provider by calling [facility] at [phone]. For information about the plan of care including goals and instructions for your diagnosis, please see the patient education orders section of this document. Patient Education Materials?? The content of this educational material or handout may have been modified, supplemented, or adapted from its original content and format to support your individualized medical care. * Zita Garcia: PERFORM, SIGN, VERIFY Event Display: Patient Education/Instruction Authored Date: [id number] [facility] *No Edge Adult Ped Clinical Summary Name KESHA BERNAL Age 37 Years 1985 PCP Kwasi JOSE, Fan Franz PCP Visit Date 11/11/2022 12:38:00 Patient Instructions chest specialty appointment as scheduled, enter detox amy as discussed, and avoid any further iv drug use; stop doxycycline and try bactrim ds twice daily for ten days; call if your symptoms worsen or change Additional Instructions: Scheduled Appointments?? Future Appointments ?No Future Appointments Scheduled Follow-Up Instructions ?? Diagnosis Medications: Please continue your medications until treatment is completed or stopped by your provider. Discuss any questions related to medications with your provider. New Medications [id number], [address] [place] [id number], [phone] Sulfamethoxazole/Trimethoprim (Bactrim DS 800 mg-160 mg oral tablet) 1 tab(s) Oral twice a day for 10 Days. Refills: 0. Next Dose: Medications to [...] mg q HS. Refills: 11. Next Dose: Quetiapine (SEROquel 50 mg oral tablet) 1 tab(s) Oral twice a day as needed anxiety or sleep. Next Dose: No Longer Take the Following Medications Mupirocin Topical (mupirocin 2% topical ointment) 1 vaughn Topically 3 times a day as needed skin sores. Refills: 1. Allergy Info:?? NKA Medications Given This Visit Future Orders ?No future orders Vital Signs Height 160 cm Weight 62.7 kg BMI 24.49 kg/m2 Blood Pressure 104 mm Hg/70 mm Hg Temperature Pulse Rate 126 bpm Respiratory Rate 02 Sat Mode of Delivery 98 %/Room air You can now view a summary of your hospital visit from the comfort of your home through a free online portal called AKT. AKT is a website that allows you to securely view your medical information including discharge summary, medications and follow-up visits. ??You can alsosend a secure electronic message to your doctor???s office to request appointments, renew medications or just ask a question. You can enroll at [email or web address] or register during your next office visit. [...] provider, you may find a [facility] provider by calling [facility] [employer] at [phone]. For information about the plan of care [...] Care Nurse Name: Mabel Quick RN Position: [facility] PCO RN Member Role: Primary Care Nurse Name: Fan Villalpando MD Position: [facility] Primary Care Physician Member Role: PCP Address: Address: [address] [place] [address] Adult [place] [address]- Name: Mely Castillo RN Position: S RN Member Role: Primary Care Nurse Name: Torri Richards RN Position: S RN Member Role: Primary Care Nurse Name: Evelyn Hall RN Position: S RN Member Role: Primary Care Nurse Name: Spencer Willard Position: S RN Member Role: Primary Care Nurse Name: Estephania Yu RN Position: [facility] RN Supjaimee Member Role: Primary Care Nurse Name: Alix Milner RN Position: S RN Member Role: Primary Care Nurse Name: Sandra Virgen MD Position: [facility] CHUCK SPLITTER MD Member Role: Lifetime CHUCK SPLITTER Physician Address: Address: [address] [place] [address]- Name: Rae Cruz RN Position: S RN Member Role: Primary Care Nurse Name: Mary Jo Moeller RN Position: [facility] Onco RN Member Role: Primary Care Nurse Care Team Related Persons Name: ISRAEL NIC Address: home [address] [place] [address]
--- OUTSIDE RECORDS SUMMARY | 2024-03-12 04:38 | XMS_ITS | Continuity of Care Document ---
Author Organization [facility] Address [address] [place] [address]- Care Team Providers Care Contract Accountant Name Role Phone Fan Villalpando MD Primary Care Physician [phone] Encounter [facility] Date(s): 05/07/22 - 05/14/22 [facility] [address] [place], [place] [address] Encounter Diagnosis Eye problem(Discharge Diagnosis) - 05/07/22 Left foot pain(Discharge Diagnosis) - 05/07/22 Attending Physician: Madisyn MULLINS, Pura Referring Physician: [...] vaccine 3 07/22/09 Given 1Result Comment: [10/15/2018] [facility]#[id number] 2Result Comment: [07/15/2018] [id number] 3Result Comment: lot # [id number] exp sep [...] 74% ( crippled ) on 12/08/17; initial [place]: 14 on 12/08/17 2SOAPP-R: 38 on 12/08/17 3Pain relevant problem list includes: See below [id number] Diagnosis Diagnosis Type Effective Dates Health Status Cl inical Service Informant Eye problem Discharge Diagnosis 05/07/22 Left foot pain Discharge Diagnosis 05/07/22 Vital Signs Most recent to oldest [Reference Range]: 1 Height 160 cm (05/07/22 8:05 AM) Weight 62.1 kg (05/07/22 8:05 AM) Oxygen Saturation [94-100 %] 97 % (05/07/22 8:05 AM) Pulse Rate [55-90 bpm] 85 bpm (05/07/22 8:05 AM) Body Mass Index [18.5-24.99] 24.26 (05/07/22 8:05 AM) Blood Pressure [90-138/55-84 mm Hg] 94/6 6mm Hg (05/07/22 8:05 AM) Mode of Delivery (Oxygen) Room air (05/07/22 8:05 AM) Blood pressure sites Arm, left (05/07/22 8:05 AM) Weight Obtained Via Standing scale (05/07/22 8:05 AM) Social History Social History Type Response Tobacco Use: 4 or less cigar ettes(less than 1/4 pack)/day in last 30 days. Sex Care Team Personnel Name: Fan Villalpando MD Address: [address] [place] [address] Adult & Pediatric Medicine [place], [place] [address]
--- OUTSIDE RECORDS SUMMARY | 2024-03-12 04:38 | XMS_ITS | Continuity of Care Document ---
Author Organization [facility] Address [address] [place] [address]- Care Team Providers Care Elevated Guard Name Role Phone Drew Barr MD Primary Care Physician Encounter [facility] Date(s): 11/27/20 - 12/27/20 [facility] [address] [place], [place] [address] Allergies, Adverse Reactions, Alerts Substance Reaction Severity Status NKA Active Immunizations Given and Recorded Vaccine Date Status Refusal Reason tetanus/diphtheria/pertussis, acel(Tdap) 04/03/19 Given tetanus/diphtheria/pertussis, acel(Tdap) 1 10/15/18 Given influenza virus vaccine, inactivated 2 07/15/18 Gi paulino influenza virus vaccine, inactivated 08/24/14 Give n influenza virus vaccine, inactivated 07/17/12 Give n pneumococcal 23-valent vaccine 3 07/22/09 Given 1Result Comment: [10/15/2018] [facility]#[id number] 2Result Comment: [07/15/2018] [id number] 3Result Comment: lot # [id number] exp sep 21 2010 Medications apixaban 5 mg oral tablet See Instructions, 2 tablet By Mouth 2 times a day for 8 doses and then 1 tablet 2 times a day thereafter, # 48 tablet, 2 Refills, Maintenance, 11/03/20 12:54:00 EST, Tablet, [facility],Partial fill upon patient request [...] 11/03/19 12:18:00 EST, Route to Pharmacy Electronically, [facility]... Start Date: 11/03/19 Status: Ordered gabapentin 400 mg oral capsule 400 mg, 1, capsule, By Mouth, Daily at bedtime, Take with 300 mg for total of 700 mg q HS, # 30 capsule, Refills 5, Tot. Refills 5, Maintenance, 02/23/20 12:22:00 EDT, Route to Pharmacy Electronically, [facility] #[id number], 160, cm, 10/07/19 10... Start Date: 02/23/20 [...] 74% ( crippled ) on 12/08/17; initial [place]: 14 on 12/08/17 2SOAPP-R: 38 on 12/08/17 3Pain relevant problem list includes: See below 36471 Social History Social History Type Response Tobacco Use: 4 or less cigar ettes(less than 1/4 pack)/day in last 30 days. Sex
--- OUTSIDE RECORDS SUMMARY | 2024-03-12 04:38 | XMS_ITS | Continuity of Care Document ---
Author Organization [facility] Address [address] [place] [address]- Care Team Providers Care Directory Assistance Operator Name Role Phone Drew Barr MD Primary Care Physician Encounter [facility] Date(s): 09/30/19 - 10/10/19 [facility] [address] [place] [address]- [facility] Attending Physician: Josefina Skelton Admitting Physician: AdmtrJosefina [...] Given 1Result Comment: [10/15/2018] [facility]#[id number] 2Result Comment: [07/15/2018] [id number] 3Result Comment: lot # [id number] exp sep 21 2010 Medications cephalexin monohydrate 500 mg oral capsule 1 capsule = 500 mg, By Mouth, 4 times a day, Please take entire course, # 148 capsule, 0 Refills, Acute 10/11/19 21:00:00 EST, 09/05/19 11:01:00 EST, Capsule, [facility][id number], 160, cm, 09/02/19 13:38:00 EST, Height, 62, [...] 01/19/19 10:14:48 EDT, Route to Pharmacy Electronically, [facility] [address] Start Date: 01/19/19 Status: Ordered Seroquel 50 [...] 74% ( crippled ) on 12/08/17; initial [place]: 14 on 12/08/17 2SOAPP-R: 38 on 12/08/17 3Pain relevant problem list includes: See below 21242 Social History Social History Type Response Tobacco Use: 4 or less cigar ettes(less than 1/4 pack)/day in last 30 days. Sex
--- OUTSIDE RECORDS SUMMARY | 2024-03-12 04:38 | XMS_ITS | Continuity of Care Document ---
Author Organization [facility] Address [address] [place] [address]- Care Team Providers Care Ibm Mainframe Developer Name Role Phone Randy JOSE, Sarah Carrasco Primary Care Physician [facility]counter [facility] Date(s): 04/10/21 - 05/10/21 [facility] [address] [place] [address] Attending Physician: AdmJosefina rodriguez Admitting Physician: Admtr, Josefina Referring Physician: Admtr, [...] vaccine 3 07/22/09 Given 1Result Comment: [07/15/2018] [id number] 2Result Comment: [10/15/2018] [facility][NOTE 3]#[id number] 3Result Comment: lot # [id number] exp sep [...] 28 tablet, 0 Refills, Maintenance, 04/25/2114:22:00 EDT, [facility]/pharmacy #0859, 166, cm, 04/25/21 13:44:00 [...] Maintenance, 03/27/2116:37:00 EDT, Route to Pharmacy Electronically, [facility]/pharmacy #0859, patient takes this dose in [...] 02/15/21 10:37:00 EDT, Route to Pharmacy Electronically, [facility] #[id number], 160, cm, 11/03/20 7:... Start Date: 02/15/21 [...] 74% ( crippled ) on 12/08/17; initial [place]: 14 on 12/08/17 2SOAPP-R: 38 on 12/08/17 3Pain relevant problem list includes: See below [id number] Social History Social History Type Response Tobacco Use: 4 or less cigar ettes(less than 1/4 pack)/day in last 30 days. Sex
--- OUTSIDE RECORDS SUMMARY | 2024-03-12 04:38 | XMS_ITS | Continuity of Care Document ---
Author Organization [facility]manuel Address [address] [place] [address] [address] [place] [address]- Care Team Providers Care Merchandiser Retail Representative Name Role Phone Fan Villalpando MD Primary Care Physician Encounter [facility] Date(s): 02/11/22 - 02/18/22 [facility] [address] [place] [address]- Attending Physician: Bijan Webber MD Referring Physician: Fan Villalpando MD Allergies, [...] vaccine 3 07/22/09 Given 1Result Comment: [07/15/2018] [id number] 2Result Comment: [10/15/2018] [facility]#[id number] 3Result Comment: lot # [id number] exp sep [...] 0 Refills, Maintenance, 04/25/2114:22:00 EDT, [facility]/pharmacy #0859, 166, cm, 04/25/21 13:44:00 EDT, Height, 66.8, kg, 10/31/20 23:17:00 EST, Dry Weight Start Date: 04/25/21 Stop Date: 05/09/21 Status: Ordered gabapentin 300 mg oral capsule 1, capsule, By Mouth, Daily, for 90 days, # 90 capsule, Refills 3, Tot. Refills 3, Physician Stop 09/29/22 11:23:00 EST, 10/04/21 11:23:00 EST, Route to Pharmacy Electronically, [facility]/pharmacy #0859, 166, cm, 10/04/21 11:05:00 EST, Height, [...] 10/04/21 11:26:00 EST, REC Powder, [facility]/pharmacy #0859, Partial fill upon patient [...] 74% ( crippled ) on 12/08/17; initial [place]: 14 on 12/08/17 2SOAPP-R: 38 on 12/08/17 3Pain relevant problem list includes: See below [id number] Vital Signs Most recent to oldest [Reference Range]: 1 Height 160 cm (02/11/22 2:20 PM) Weight 63.9 kg (02/11/22 2:20 PM) Pulse Rate [55-90 bpm] 98 bpm *H* (02/11/22 2:20 PM) Body Mass Index [18.5-24.99] 24.96 (02/11/22 2:20 PM) Blood Pressure [90-138/55-84 mm Hg] 130/ 93mm Hg (02/11/22 2:20 PM) Blood pressure sites Arm, left (02/11/22 2:20 PM) Social History Social History Type Response Tobacco Use: 4 or less cigar ettes(less than 1/4 pack)/day in last 30 days. Sex
--- OUTSIDE RECORDS SUMMARY | 2024-03-12 04:38 | XMS_ITS | Continuity of Care Document ---
Author Organization [facility] Address [address] [place] [address]- Care Team Providers Care Hardness Tester Name Role Phone Fan Villalpando MD Primary Care Physician [place] [facility] [place] 12/11/23 - 12/18/23 [facility] [address] [place], [place] [address] Encounter Diagnosis Head injury(Discharge Diagnosis) - 12/11/23 IVDU (intravenous drug user)(Discharge Diagnosis) - 12/11/23 Bipolar disorder, curr episode depressed, severe, w/psychotic features(Discharge Diagnosis) - 12/11/23 History of opioid abuse(Discharge Diagnosis) - 12/11/23 Attending Physician: Fan Villalpando MD Allergies, Adverse [...] vaccine 3 07/22/09 Given 1Result Comment: [10/15/2018] [facility]#[id number] 2Result Comment: [07/15/2018] [id number] 3Result Comment: lot # [id number] exp sep 21 2010 Medications betamethasone-clotrimazole 0.05%-1% topical cream See Instructions, APPLY TOPICALLY 2 TIMES A DAY NEEDED FOR FOOT RASH, # 15 Gm, 5 Refills, Maintenance, 02/12/23 9:53:00 EDT, [facility], 30, APPLY TOPICALLY 2 TIMES A DAY [...] 11:21:00 EST, 08/21/23 11:20:00 EST, REC Powder, [facility]/pharmacy #0859, Partial fill upon patient requestif [...] 08/21/24 11:28:00 EST, 08/21/23 11:28:00 EST, Ointment, [facility]/pharmacy #0859, Partial fill upon patient request [...] 74% ( crippled ) on 12/08/17; initial [place]: 14 on 12/08/17 2SOAPP-R: 38 on 12/08/17 3Pain relevant problem list includes: See below [id number] Diagnosis Diagnosis Type Effective Dates Health Status Cl inical Service Informant Head injury Discharge Diagnosis 12/11/23 IVDU (intravenous drug user) Discharge Diagnosis 12/11/23 Bipolar disorder, curr episode depressed, severe, w/psychotic features Discharge Diagnosis 12/11/23 History of opioid abuse Discharge Diagnosis 12/11/23 Vital Signs Most recent to oldest [Reference Range]: 1 Height 160 cm (12/11/23 9:56 AM) Oxygen Saturation [94-100 %] 100 % (12/11/23 9:56 AM) Pulse Rate [55-90 bpm] 114 bpm *H* (12/11/23 9:56 AM) Blood Pressure [90-138/55-84 mm Hg] 130/ 93mm Hg (12/11/23 9:56 AM) Blood pressure sites Arm, left (12/11/23 9:56 AM) Social History Social History Type Response Tobacco Use: 4 or less cigar ettes(less than 1/4 pack)/day in last 30 days. Sex Patient Care team information Care Team Personnel Name: Deneen Guzman RN Position: [facility] RN Member Role: Primary Care Nurse Name: Mabel Quick RN Position: [facility] AMB Nurse Member Role: Primary Care Nurse Name: Fan Villalpando MD Position: [facility] Physician - Primary Care Member Role: PCP Address: Address: [address] [place] [address] Adult [facility] [place] [address]- Name: Mely Castillo RN Position: [facility] RN Member Role: Primary Care Nurse Name: Torri Richards RN Position: [facility] RN Member Role: Primary Care Nurse Name: Evelyn Hall RN Position: [facility] RN Member Role: Primary Care Nurse Name: Spencer Willard RN Position: [facility] RN Member Role: Primary Care Nurse Name: Alix Milner RN Position: [facility] RN Member Role: Primary Care Nurse Name: Collin Bolanos RN Position: [facility] SN RN Member Role: Primary Care Nurse Name: Sandra Virgen MD Position: [facility] DIVISION MANAGER MD Member Role: Lifetime DIVISION MANAGER Physician Address: Address: [address] [place], [place] [address]s [facility] [place] [address]- Name: Mary Jo Garcia RN Position: [facility] Onco RN Member Role: Primary Care Nurse Name: Anthony MULLINS, Rae Pyle Position: [facility] PCO Associate Professional Member Role: Primary Care Nurse Address: Address: [address] [place] [address] - [place] [address]- Care Team Related Persons Name: NIC WOOD Address: home [address] [place] [address]
--- OUTSIDE RECORDS SUMMARY | 2024-03-12 04:38 | XMS_ITS | Continuity of Care Document ---
Author Organization [facility] Address [address] [place] [address]- Care Team Providers Care Evaluator Transfer Students Name Role Phone Drew Barr MD Primary Care Physician Encounter [facility] Date(s): 02/25/20 - 03/03/20 [facility] [address] [place] [address]- [facility] Encounter Diagnosis s/p Right tib/fib fracture with free flap repair.(Discharge Diagnosis) - 02/29/20 Chronic pain(Discharge Diagnosis) - 02/29/20 Cough(Discharge Diagnosis) - 02/29/20 Focal myositis(Discharge Diagnosis) - 02/29/20 Attending Physician: Drew Barr MD Allergies, Adverse [...] vaccine 3 07/22/09 Given 1Result Comment: [10/15/2018] [facility]#[id number] 2Result Comment: [07/15/2018] [id number] 3Result Comment: lot # [id number] exp sep 21 2010 Medications duloxetine 60 mg oral enteric coated capsule 1 capsule = 60 mg, By Mouth, Daily in AM, Take in combination with Duloxetine 30 mg PO for a total of 90 mg, # 30 capsule, 2 Refills, Maintenance, 12/09/18 10:46:10 EDT Start Date: 12/09/18 Stop Date: 03/09/19 Status: Ordered erythromycin 0.5% ophthalmic ointment 0.5 inches, Eye, Left, 4 times a day, for 7 days, # 3.5 Gm, 0 Refills, Acute 03/04/20 17:25:00 EDT,02/26/20 17:25:00 EDT, Ophth Ointment, [facility] #00062, 0.5 inches Eye, Left 4 times a day,x7 days, 160, cm, 10/07/19 10:44:00 EST, Height,... Start Date: 02/26/20 Stop Date: 03/04/20 Status: Ordered ferrous sulfate 325 mg oral enteric coated tablet 325 mg, 1, tablet, By Mouth, 3 times a day, start 1 per day and increase as tolerated. Take with Vitamin C to help absorption, # 90 tablet, Refills 3, Tot. Refills 3, Maintenance, 11/03/19 12:18:00 EST, Route to Pharmacy Electronically, [facility]... Start Date: 11/03/19 Status: Ordered gabapentin 300 [...] 02/23/20 12:22:00 EDT, Route to Pharmacy Electronically, [facility] #00806, 160, cm, 10/07/19 10... Start Date: 02/23/20 [...] 01/19/19 10:14:48 EDT, [facility] Start Date: 01/19/19 Status: Ordered Seroquel 50 [...] 74% ( crippled ) on 12/08/17; initial [place]: 14 on 12/08/17 2SOAPP-R: 38 on 12/08/17 3Pain relevant problem list includes: See below 26521 Diagnosis Diagnosis Type Effective Dates Health Status Cl inical Service Informant s/p Right tib/fib fracture with free flap repair. Discharge Diagnosis 02/29/20 Chronic pain Discharge Diagnosis 02/29/20 Cough Discharge Diagnosis 02/29/20 Focal myositis Discharge Diagnosis 02/29/20 Social History Social History Type Response Tobacco Use: 4 or less cigar ettes(less than 1/4 pack)/day in last 30 days. Sex
--- OUTSIDE RECORDS SUMMARY | 2024-03-12 04:38 | XMS_ITS | Continuity of Care Document ---
Author Organization [facility] Address [address] [place] [address]- Care Team Providers Care Stationary Plant Operators Name Role Phone Drew Barr MD Primary Care Physician [phone] [place] [facility] [place](s[place] 12/03/19 - 12/10/19 [facility] [address] [place] [address]- [facility] Attending Physician: Drew Barr [...] Given 1Result Comment: [10/15/2018] [facility]#[id number] 2Result Comment: [07/15/2018] [id number] 3Result Comment: lot # [id number] exp sep [...] 11/03/19 12:18:00 EST, Route to Pharmacy Electronically, [facility]... Start Date: 11/03/19 Status: Ordered KlonoPIN 1 [...] 01/19/19 10:14:48 EDT, Route to Pharmacy Electronically, [facility] Start Date: 01/19/19 Status: Ordered predniSONE 20 mg oral tablet 3 tablet = 60 mg, By Mouth, Daily, for 30 days, # 90 tablet, 1 Refills, Acute 01/21/20 14:34:00 EDT, 11/22/19 14:34:00 EDT, [facility] #60178, 160, cm, 10/07/19 10:44:00 EST, Height, 62, [...] 74% ( crippled ) on 12/08/17; initial [place]: 14 on 12/08/17 2SOAPP-R: 38 on 12/08/17 3Pain relevant problem list includes: See below 51677 Social History Social History Type Response Tobacco Use: 4 or less cigar ettes(less than 1/4 pack)/day in last 30 days. Sex
--- OUTSIDE RECORDS SUMMARY | 2024-03-12 04:38 | XMS_ITS | Continuity of Care Document ---
Author Organization [facility] Address [address] [place] [address]- Care Team Providers Care Undercollar Maker Name Role Phone Fan Villalpando MD Primary Care Physician [phone] Encounter [facility] Date(s): 05/07/22 - 06/06/22 [facility] [address] [place], [place] [address] Attending Physician: Josefina Skelton Admitting Physician: AdmtrJosefina Referring Physician: Admtr ArGage Allergies, Adverse Reactions, Alerts No Known Allergies [...] 07/22/09 Given 1Result Comment: [10/15/2018] [facility]#[id number] 2Result Comment: [07/15/2018] [id number] 3Result Comment: lot # [id number] exp sep 21 2010 Medications betamethasone-clotrimazole 0.05%-1% topical cream 1 application, Topically, 2 times a day, PRN foot rash, # 15 Gm, 1 Refills, Acute 05/20/23 17:17:00EDT, 05/20/22 17:16:00 EDT, Cream, [facility]/pharmacy #[id number], Partial fill upon patient request if the [...] 10/04/21 11:23:00 EST, Route to Pharmacy Electronically, [facility]/pharmacy #[id number], 166, cm, 10/04/21 11:05:00 EST, [...] 11:26:00 EST, 10/04/21 11:26:00 EST, REC Powder, [facility]/pharmacy #0859, Partial fill upon patient request [...] 74% ( crippled ) on 12/08/17; initial [place]: 14 on 12/08/17 2SOAPP-R: 38 on 12/08/17 3Pain relevant problem list includes: See below [id number] Social History Social History Type Response Tobacco Use: 4 or less cigar ettes(less than 1/4 pack)/day in last 30 days. Sex Patient Care team information Personnel Name: Kwasi JOSE, Fan Franz Address: Address: [address] [place] [address] [facility] [address]
--- OUTSIDE RECORDS SUMMARY | 2024-03-12 04:38 | XMS_ITS | Continuity of Care Document ---
Author Organization [facility] Address [address] [place] [address]- Care Team Providers Care Soft Iron Inspector Name Role Phone Fan Villalpando MD Primary Care Physician Encounter [facility] Date(s): 10/30/21 - 12/08/[address] [address] Attending Physician: Fan Villalpando MD Admitting Physician: Fan Villalpando MD Referring Physician: Janina Melendez MD Allergies, Adverse Reactions, Alerts No Known [...] vaccine 3 07/22/09 Given 1Result Comment: [07/15/2018] [id number] 2Result Comment: [10/15/2018] [facility]#[id number] 3Result Comment: lot # [id number] exp sep [...] 28 tablet, 0 Refills, Maintenance, 04/25/2114:22:00 EDT, [facility]/pharmacy #0859, 166, cm, 04/25/21 13:44:00 EDT, Height, 66.8, kg, 10/31/20 23:17:00 EST, Dry Weight Start Date: 04/25/21 Stop Date: 05/09/21 Status: Ordered gabapentin 300 mg oral capsule 1, capsule, By Mouth, Daily, for 90 days, # 90 capsule, Refills 3, Tot. Refills 3, Physician Stop 09/29/22 11:23:00 EST, 10/04/21 11:23:00 EST, Route to Pharmacy Electronically, [facility]/pharmacy #0859, 166, cm, 10/04/21 11:05:00 [...] EST, 10/04/21 11:26:00 EST, REC Powder, [facility] [...] 74% ( crippled ) on 12/08/17; initial [place]: 14 on 12/08/17 2SOAPP-R: 38 on 12/08/17 3Pain relevant problem list includes: See below [id number] Social History Social History Type Response Tobacco Use: 4 or less cigar ettes(less than 1/4 pack)/day in last 30 days. Sex
--- OUTSIDE RECORDS SUMMARY | 2024-03-12 04:38 | XMS_ITS | Continuity of Care Document ---
Author Organization [facility] ter Address [address] [place] [address]- Care Team Providers Care Straw Boss Name Role Phone Drew Barr MD Primary Care Physician Encounter [facility] Date(s): 11/05/20 - 11/05/[address] [address]- Encounter Diagnosis Tenosynovitis of right forearm(Final) - 11/05/20 Left leg DVT(Final) - 11/05/20 Discharge Disposition: A-D/C Home Attending Physician: Lu [...] Given 1Result Comment: [10/15/2018] [facility]#[id number] 2Result Comment: [07/15/2018] [id number] 3Result Comment: lot # [id number] exp sep 21 2010 Medications apixaban 5 mg oral tablet See Instructions, 2 tablet By Mouth 2 times a day for 8 doses and then 1 tablet 2 times a day thereafter, # 48 tablet, 2 Refills, Maintenance, 11/03/20 12:54:00 EST, Tablet, [facility],Partial fill upon patient request if [...] 11/03/19 12:18:00 EST, Route to Pharmacy Electronically, [facility]... Start Date: 11/03/19 Status: Ordered gabapentin 400 mg oral capsule 400 mg, 1, capsule, By Mouth, Daily at bedtime, Take with 300 mg for total of 700 mg q HS, # 30 capsule, Refills 5, Tot. Refills 5, Maintenance, 02/23/20 12:22:00 EDT, Route to Pharmacy Electronically, [facility] #30872, 160, cm, 10/07/19 10... Start Date: 02/23/20 [...] 74% ( crippled ) on 12/08/17; initial [place]: 14 on 12/08/17 2SOAPP-R: 38 on 12/08/17 3Pain relevant problem list includes: See below 37069 Vital Signs Most recent to oldest [Reference Range]: 1 2 Oxygen Saturation [94-100 %] 100 % (11/05/20 2:43 PM) 97 % (11/05/20 2:39 PM) Pulse Rate [55-90 bpm] 124 bpm *H* (11/05/20 2:43 PM) 106 bpm *H* (11/05/20 2:39 PM) Blood Pressure [90-138/55-84 mm Hg] 126/ 73mm Hg (11/05/20 2:43 PM) Respiratory Rate [16-30 br/min] 16 br/mi n (11/05/20 2:43 PM) Temperature [96.8-100.4 DegF] 98.6 DegF (11/05/20 2:43 PM) Liters per Minute 0 L/min (11/05/20 2:39 PM) Mode of Delivery (Oxygen) Room air (11/05/20 2:43 PM) Room air (11/05/20 2:39 PM) Temperature Route Oral (11/05/20 2:43 PM) Social History Social History Type Response Tobacco Use: 4 or less cigar ettes(less than 1/4 pack)/day in last 30 days. Sex
--- OUTSIDE RECORDS SUMMARY | 2024-03-12 04:38 | XMS_ITS | Continuity of Care Document ---
Author Organization [facility] Address [address] [place] [address]- Care Team Providers Care Stringed Instrument Tuner Name Role Phone Drew Barr MD Primary Care Physician Encounter [facility] Date(s): 03/29/20 - 04/05/20 [facility] [address] [place] [address]- [facility] Attending Physician: Drew Barr MD Allergies, Adverse [...] 1Result Comment: [10/15/2018] [facility]#[id number] 2Result Comment: [07/15/2018] [id number] 3Result Comment: lot # [id number] exp sep [...] 11/03/19 12:18:00 EST, Route to Pharmacy Electronically, [facility]... Start Date: 11/03/19 Status: Ordered gabapentin [...] 02/23/20 12:22:00 EDT, Route to Pharmacy Electronically, [facility] #96146, 160, cm, 10/07/19 10... Start Date: 02/23/20 [...] 01/19/19 10:14:48 EDT, Route to Pharmacy Electronically, [email or web address] [address] Start Date: 01/19/19 Status: Ordered Seroquel 50 [...] 74% ( crippled ) on 12/08/17; initial [place]: 14 on 12/08/17 2SOAPP-R: 38 on 12/08/17 3Pain relevant problem list includes: See below 07919 Social History Social History Type Response Tobacco Use: 4 or less cigar ettes(less than 1/4 pack)/day in last 30 days. Sex
--- OUTSIDE RECORDS SUMMARY | 2024-03-12 04:38 | XMS_ITS | Continuity of Care Document ---
Author Organization [facility] Address [address] [place] [address]- Care Team Providers Care Auto Engine Mechanic Name Role Phone Randy JOSE, Sarah Carrasco Primary Care Physician Encounter [facility] Date(s): 03/14/21 - 04/13/21 [facility] [address] [place], [place] [address] Allergies, Adverse Reactions, Alerts Substance Reaction Severity Status NKA Active Immunizations Given and Recorded Vaccine Date Status Refusal Reason tetanus/diphtheria/pertussis, acel(Tdap) 04/03/19 Given tetanus/diphtheria/pertussis, acel(Tdap) 1 10/15/18 Given influenza virus vaccine, inactivated 2 07/15/18 Gi paulino influenza virus vaccine, inactivated 08/24/14 Give n influenza virus vaccine, inactivated 07/17/12 Give n pneumococcal 23-valent vaccine 3 07/22/09 Given 1Result Comment: [10/15/2018] [facility]#[id number] 2Result Comment: [07/15/2018] [id number] 3Result Comment: lot # [id number] exp sep 21 2010 Medications apixaban 5 mg oral tablet See Instructions, 2 tablet By Mouth 2 times a day for 8 doses and then 1 tablet 2 times a day thereafter, # 48 tablet, 2 Refills, Maintenance, 11/03/20 12:54:00 EST, Tablet, [facility],Partial fill upon patient request [...] 11/03/19 12:18:00 EST, Route to Pharmacy Electronically, [facility]... Start Date: 11/03/19 Status: Ordered Flagyl 500 [...] Maintenance, 03/27/2116:37:00 EDT, Route to Pharmacy Electronically, [facility]/pharmacy #0808, patient takes this dose in AM -with [...] 02/15/21 10:37:00 EDT, Route to Pharmacy Electronically, [facility] #47320, 160, cm, 11/03/20 7:... Start Date: 02/15/21 [...] 04/17/21 12:18:00 EDT, 04/10/21 12:18:00 EDT, Tablet, [facility]/pharmacy #0859, Partial fill upon patient request [...] 74% ( crippled ) on 12/08/17; initial [place]: 14 on 12/08/17 2SOAPP-R: 38 on 12/08/17 3Pain relevant problem list includes: See below [id number] Social History Social History Type Response Tobacco Use: 4 or less cigar ettes(less than 1/4 pack)/day in last 30 days. Sex
--- OUTSIDE RECORDS SUMMARY | 2024-03-12 04:38 | XMS_ITS | Continuity of Care Document ---
Author Organization [facility] ter Address [address] [place] [address]- Care Team Providers Care Engineer Name Role Phone Sarah Padilla MD Primary Care Physician [facility] Date(s): 03/31/21 - 04/01/[address] [address]- Discharge Disposition: A-D/C Home Attending Physician: Cristina Montoya MD Admitting Physician: Stephanie Haddad MD, Cristina Referring Physician: Not on Staff, Referring MD [...] 3 07/22/09 Given 1Result Comment: [10/15/2018] [facility]#[id number] 2Result Comment: [07/15/2018] [id number] 3Result Comment: lot # [id number] exp sep 21 2010 Medications apixaban 5 mg oral tablet See Instructions, 2 tablet By Mouth 2 times a day for 8 doses and then 1 tablet 2 times a day thereafter, # 48 tablet, 2 Refills, Maintenance, 11/03/20 12:54:00 EST, Tablet, [facility],Partial fill upon patient request [...] 11/03/19 12:18:00 EST, Route to Pharmacy Electronically, [facility]... Start Date: 11/03/19 Status: Ordered gabapentin 300 mg oral capsule 300 mg, 1, capsule, By Mouth, Daily, # 30 capsule, Refills 1, Tot. Refills 1, Maintenance, 03/27/2116:37:00 EDT, Route to Pharmacy Electronically, [facility]/pharmacy #[id number], patient takes this dose in AM -with [...] 02/15/21 10:37:00 EDT, Route to Pharmacy Electronically, [facility] #[id number], 160, cm, 11/03/20 7:... Start Date: 02/15/21 [...] 74% ( crippled ) on 12/08/17; initial [place]: 14 on 12/08/17 2SOAPP-R: 38 on 12/08/17 3Pain relevant problem list includes: See below [id number] Results Orders for Microbiology Reports Name Date Wet Prep 04/01/21 Microbiology Reports TEST:Wet Prep STATUS:Auth (Verified) BODY SITE: SOURCE:VAGINA COLLECTED DATE/TIME:04/01/21 3:57 AM Wet Prep SPECIMEN DESCRIPTION : VAGINAL SPECIMEN SPECIAL REQUESTS : NONE DIRECT EXAM : 2+ CLUE CELLS 1+ WHITE BLOOD CELLS NO YEAST OBSERVED NO TRICHOMONAS OBSERVED REPORT STATUS : FINAL 04/01/2021 Vital Signs Most recent to oldest [Reference Range]: 1 2 3 Height 166 cm (03/31/21 5:16 PM) Oxygen Saturation [94-100 %] 98 % (04/01/21 7:43 AM) 97 % (04/01/21 4:00 AM) 98 % (04/01/21 12:47 AM) Pulse Rate [55-90 bpm] 89 bpm (04/01/21 7:43 AM) 97 bpm *H* (04/01/21 4:00 AM) 99 bpm *H* (04/01/21 12:47 AM) Blood Pressure [90-138/55-84 mm Hg] 121/89mm Hg (04/01/21 7:43 AM) 120/58mm Hg (04/01/21 4:00 AM) 121/88mm Hg (04/01/21 12:47 AM) Respiratory Rate [16-30 br/min] 17 br/min (04/01/21 7:43 AM) 16 br/min (04/01/21 4:00 AM) 16 br/min (04/01/21 12:47 AM) Temperature [96.8-100.4 DegF] 98 DegF (04/01/21 7:43 AM) 97.5 DegF (04/01/21 12:47 AM) 98.7 DegF (03/31/21 5:16 PM) Mode of Delivery (Oxygen) Room air (04/01/21 7:43 AM) Room air (04/01/21 4:00 AM) Room air (04/01/21 12:47 AM) Blood pressure sites Arm, left (04/01/21 7:43 AM) Arm, left (04/01/21 4:00 AM) Arm, right (04/01/21 12:47 AM) Temperature Route Oral (04/01/21 7:43 AM) Oral (04/01/21 12:47 AM) Oral (03/31/21 5:16 PM) Social History Social History Type Response Tobacco Use: 4 or less cigar ettes(less than 1/4 pack)/day in last 30 days. Sex
--- OUTSIDE RECORDS SUMMARY | 2024-03-12 04:38 | XMS_ITS | Continuity of Care Document ---
Author Organization [facility] Address [address] [place] [address]- Care Team Providers Care Electronics Tester Name Role Phone Kwasi JOSE, Fan Franz Primary Care Physician Encounter [facility] Date(s): 08/28/22 - 09/04/22 [facility] [address] [place], [place] [address] Attending Physician: Bernard Umanzor MD Allergies, Adverse Reactions, Alerts No Known [...] 3 07/22/09 Given 1Result Comment: [10/15/2018] [facility]#[id number] 2Result Comment: [07/15/2018] [id number] 3Result Comment: lot # [id number] exp sep 21 2010 Medications betamethasone-clotrimazole 0.05%-1% topical cream 1 application, Topically, 2 times a day, PRN foot rash, # 15 Gm, 1 Refills, Acute 05/20/23 17:17:00EDT, 05/20/22 17:16:00 EDT, Cream, [facility]/pharmacy #[id number], Partial fill upon patient request if the [...] 10/04/21 11:23:00 EST, Route to Pharmacy Electronically, [facility]/pharmacy #[id number], 166, cm, 10/04/21 11:05:00 EST, Height, [...] 11:26:00 EST, 10/04/21 11:26:00 EST, REC Powder, [facility]/pharmacy #[id number], Partial fill upon patient request if [...] 74% ( crippled ) on 12/08/17; initial [place]: 14 on 12/08/17 2SOAPP-R: 38 on 12/08/17 3Pain relevant problem list includes: See below [id number] Vital Signs Most recent to oldest [Reference Range]: 1 Height 160 cm (08/28/22 8:00 AM) Weight 63.2 kg (08/28/22 8:00 AM) Oxygen Saturation [94-100 %] 100 % (08/28/22 8:00 AM) Pulse Rate [55-90 bpm] 111 bpm *H* (08/28/22 8:00 AM) Body Mass Index [18.5-24.99 kg/m2] 24.69 kg/m2 (08/28/22 8:00 AM) Blood Pressure [90-138/55-84 mm Hg] 110/ 68mm Hg (08/28/22 8:00 AM) Mode of Delivery (Oxygen) Room air (08/28/22 8:00 AM) Blood pressure sites Arm, left (08/28/22 8:00 AM) Social History Social History Type Response Tobacco Use: 4 or less cigar ettes(less than 1/4 pack)/day in last 30 days. Sex Note * Barb Norman: SIGN, VERIFY, PERFORM Event Display: Patient Education/Instruction Authored Date: [id number] [facility] *No [facility] Clinical Summary Name KESHA BERNAL Age 37 Years 1985 PCP Fan Villalpando MD PCP Visit Date 08/28/2022 07:50:00 Additional Instructions: Scheduled Appointments?? Future Appointments ?*No??[facility]ult[facility] ?[address]??[place],??[place],??[address] ?Phone:??--?Fax:??-- ?Appt. Date:??10/02/2022?2:20 PM ?Scheduled Provider:??Fan Villalpando MD Follow-Up Instructions ?? Diagnosis Cyanosis Medications: Please continue your medications until treatment is completed or stopped by your provider. Discuss any questions related to medications with your provider. Medications to Continue with No Changes These [...] crush or chew. Next Dose: Gabapentin (gabapentin 300 mg oral capsule) 1 capsule Oral Daily for 90 Days. Refills: 3. Next Dose: Gabapentin (gabapentin 400 mg oral [...] orders Vital Signs Height 160 cm Weight 63.2 kg BMI 24.69 kg/m2 Blood Pressure 110 mm Hg/68 mm Hg Temperature Pulse Rate 111 bpm Respiratory Rate 02 Sat Mode of Delivery 100 %/Room air You can now view a summary of your hospital visit from the comfort of your home through a free online portal called [employer]. [employer] is a website that allows you to securely view your medical information including discharge summary, medications and follow-up visits. ??You can alsosend a secure electronic message to your doctor???s office to request appointments, renew medications or just ask a question. You can enroll at [email or web address] or register during your next office [...] primary care provider, you may find a [facility] provider by calling [facility] [employer] Link at [phone]. For information about the plan of care [...] Team Personnel Name: Deneen Guzman RN Position: [facility] RN Member Role: Primary Care Nurse Name: Mabel Quick RN Position: [facility] PCO RN Member Role: Primary Care Nurse Name: Fan Villalpando MD Position: [facility] Primary Care Physician Member Role: PCP Address: Address: [address] [place] [address] Adult & [place] [address]- Name: Mely Castillo RN Position: [facility] RN Member Role: Primary Care Nurse Name: Torri Richards RN Position: [facility] RN Member Role: Primary Care Nurse Name: Spencer Willard Position: [facility] RN Member Role: Primary Care Nurse Name: Estephania Yu RN Position: [facility] RN Reji Member Role: Primary Care Nurse Name: Evelyn Joy RN Position: [facility] RN Member Role: Primary Care Nurse Name: Alix Milner RN Position: [facility] RN Member Role: Primary Care Nurse Name: Sandra Virgen MD Position: [facility] ANESTHESIOLOGY CRNA MD Member Role: [facility] ANESTHESIOLOGY CRNA Physician Address: Address: [address] [place] [address] [place] [address]- Name: Rae Cruz RN Position: [facility] RN Member Role: Primary Care Nurse Name: Mary Jo Moeller RN Position: [facility] Onco RN Member Role: Primary Care Nurse Care Team Related Persons Name: NIC WOOD Address: home [address] [place] [address]
--- OUTSIDE RECORDS SUMMARY | 2024-03-12 04:38 | XMS_ITS | Continuity of Care Document ---
Author Organization [facility] Address [address] [place] [address]- Care Team Providers Care Retort Feeder Ground Bone Name Role Phone Drew Barr MD Primary Care Physician [phone] Encounter [facility] Date(s): 09/07/20 - 10/07/20 [facility] [address] [place], [place] [address] Attending Physician: Josefina Skelton [...] 1Result Comment: [10/15/2018] [facility]#[id number] 2Result Comment: [07/15/2018] [id number] 3Result Comment: lot # [id number] exp sep [...] 11/03/19 12:18:00 EST, Route to Pharmacy Electronically, [facility]... Start Date: 11/03/19 Status: Ordered gabapentin 400 mg oral capsule 400 mg, 1, capsule, By Mouth, Daily at bedtime, Take with 300 mg for total of 700 mg q HS, # 30 capsule, Refills 5, Tot. Refills 5, Maintenance, 02/23/20 12:22:00 EDT, Route to Pharmacy Electronically, [facility] #[id number], 160, cm, 10/07/19 10... Start Date: 02/23/20 [...] tablet, 0 Refills, Maintenance, 05/04/20 20:37:00 EDT, [id number], 160, cm, 10/07/19 10:44:00 EST, Height, 57.3, [...] 74% ( crippled ) on 12/08/17; initial [place]: 14 on 12/08/17 2SOAPP-R: 38 on 12/08/17 3Pain relevant problem list includes: See below 08121 Social History Social History Type Response Tobacco Use: 4 or less cigar ettes(less than 1/4 pack)/day in last 30 days. Sex
--- OUTSIDE RECORDS SUMMARY | 2024-03-12 04:38 | XMS_ITS | Continuity of Care Document ---
Author Organization [facility] Address [address] [place] [address]- Care Team Providers Care Senior Premium Auditor Name Role Phone Drew Barr MD Primary Care Physician Encounter [facility] Date(s): 03/27/20 - 04/26/20 [facility] [address] [place] [address]- [facility] Allergies, Adverse Reactions, Alerts Substance Reaction Severity Status NKA Active Immunizations Given and Recorded Vaccine Date Status Refusal Reason tetanus/diphtheria/pertussis, acel(Tdap) 04/03/19 Given tetanus/diphtheria/pertussis, acel(Tdap) 1 10/15/18 Given influenza virus vaccine, inactivated 2 07/15/18 Gi paulino influenza virus vaccine, inactivated 08/24/14 Give n influenza virus vaccine, inactivated 07/17/12 Give n pneumococcal 23-valent vaccine 3 07/22/09 Given 1Result Comment: [10/15/2018] [facility]#[id number] 2Result Comment: [07/15/2018] [id number] 3Result Comment: lot # [id number] exp sep [...] 11/03/19 12:18:00 EST, Route to Pharmacy Electronically, [facility]... Start Date: 11/03/19 Status: Ordered gabapentin [...] 02/23/20 12:22:00 EDT, Route to Pharmacy Electronically, [facility] #[id number], 160, cm, 10/07/19 10... Start Date: 02/23/20 [...] 01/19/19 10:14:48 EDT, Route to Pharmacy Electronically, [email or web address] Start Date: 01/19/19 Status: Ordered Seroquel 50 [...] 74% ( crippled ) on 12/08/17; initial [place]: 14 on 12/08/17 2SOAPP-R: 38 on 12/08/17 3Pain relevant problem list includes: See below 81329 Social History Social History Type Response Tobacco Use: 4 or less cigar ettes(less than 1/4 pack)/day in last 30 days. Sex
--- OUTSIDE RECORDS SUMMARY | 2024-03-12 04:38 | XMS_ITS | Continuity of Care Document ---
Author Organization [facility] Address [address] [place] [address]- Care Team Providers Care Steamboat Captain Name Role Phone Kwasi JOSE, Fan Franz Primary Care Physician [facility] Date(s): 03/28/22 - 04/27/22 [facility] [address] [place], [place] [address] Allergies, Adverse Reactions, Alerts No Known [...] 3 07/22/09 Given 1Result Comment: [10/15/2018] [facility]#[id number] 2Result Comment: [07/15/2018] [id number] 3Result Comment: lot # [id number] exp sep 21 2010 Medications cephalexin monohydrate 500 mg oral capsule 1 capsule = 500 mg, By Mouth, 4 times a day, for 7 days, # 28 capsule, 0 Refills, Acute 05/02/22 13:34:00 EDT, 04/25/22 13:34:00 EDT, Capsule, [id number], Partial fill upon patient request ifthe prescription [...] 10/04/21 11:23:00 EST, Route to Pharmacy Electronically, [facility]/pharmacy #[id number], 166, cm, 10/04/21 [...] 11:26:00 EST, 10/04/21 11:26:00 EST, REC Powder, [facility]/pharmacy #0859, Partial fill upon [...] 74% ( crippled ) on 12/08/17; initial [place]: 14 on 12/08/17 2SOAPP-R: 38 on 12/08/17 3Pain relevant problem list includes: See below 70637 Social History Social History Type Response Tobacco Use: 4 or less cigar ettes(less than 1/4 pack)/day in last 30 days. Sex Care Team Personnel Name: Fan Villalpando MD Address: [address] [place] [address] Adult & Pediatric Medicine [place], [place] [address]
--- OUTSIDE RECORDS SUMMARY | 2024-03-12 04:38 | XMS_ITS | Continuity of Care Document ---
Author Organization [facility] Address [address] [place] [address]- Care Team Providers Care National Sales Associate Name Role Phone Randy JOSE, Sarah Carrasco Primary Care Physician En[facility] Date(s): 04/10/21 - 04/17/[address] [facility] [address] [place], [place] [address] Attending Physician: Promise JOSE, Sandra Cisneros Allergies, Adverse Reactions, Alerts Substance Reaction Severity [...] Comment: [10/15/2018] [facility]#[id number] 2Result Comment: [07/15/2018] [id number] 3Result Comment: lot # [id number] exp sep 21 2010 Medications apixaban 5 mg oral tablet See Instructions, 2 tablet By Mouth 2 times a day for 8 doses and then 1 tablet 2 times a day thereafter, # 48 tablet, 2 Refills, Maintenance, 11/03/20 12:54:00 EST, Tablet, [facility],Partial fill upon patient request [...] 11/03/19 12:18:00 EST, Route to Pharmacy Electronically, [facility]... Start Date: 11/03/19 Status: Ordered Flagyl 500 [...] Maintenance, 03/27/2116:37:00 EDT, Route to Pharmacy Electronically, [facility]/pharmacy #[id number], patient takes this dose in AM -with [...] 02/15/21 10:37:00 EDT, Route to Pharmacy Electronically, [facility] #[id number], 160, cm, 11/03/20 7:... Start Date: 02/15/21 [...] 74% ( crippled ) on 12/08/17; initial [place]: 14 on 12/08/17 2SOAPP-R: 38 on 12/08/17 3Pain relevant problem list includes: See below 57023 Social History Social History Type Response Tobacco Use: 4 or less cigar ettes(less than 1/4 pack)/day in last 30 days. Sex
--- OUTSIDE RECORDS SUMMARY | 2024-03-12 04:38 | XMS_ITS | Continuity of Care Document ---
Author Organization [facility] Address [address] [place] [address]- Care Team Providers Care Crossbar Switch Adjuster Name Role Phone Fan Villalpando MD Primary Care Physician [phone] Encounter [facility] Date(s): 10/25/21 - 11/25/21 [facility] [address] [place], [place] [address] Attending Physician: Fan Villalpando MD Allergies, [...] vaccine 3 07/22/09 Given 1Result Comment: [07/15/2018] [id number] 2Result Comment: [10/15/2018] [facility]#[id number] 3Result Comment: lot # [id number] exp sep [...] 28 tablet, 0 Refills, Maintenance, 04/25/2114:22:00 EDT, [facility]/pharmacy #0859, 166, cm, 04/25/21 13:44:00 EDT, Height, 66.8, kg, 10/31/20 23:17:00 EST, Dry Weight Start Date: 04/25/21 Stop Date: 05/09/21 Status: Ordered gabapentin 300 mg oral capsule 1, capsule, By Mouth, Daily, for 90 days, # 90 capsule, Refills 3, Tot. Refills 3, Physician Stop 09/29/22 11:23:00 EST, 10/04/21 11:23:00 EST, Route to Pharmacy Electronically, [facility]/pharmacy #[id number], 166, cm, 10/04/21 11:05:00 EST, Height, [...] EST, 10/04/21 11:26:00 EST, REC Powder, [facility]/pharmacy #[id number], Partial fill upon patient request if [...] 74% ( crippled ) on 12/08/17; initial [place]: 14 on 12/08/17 2SOAPP-R: 38 on 12/08/17 3Pain relevant problem list includes: See below 30829 Social History Social History Type Response Tobacco Use: 4 or less cigar ettes(less than 1/4 pack)/day in last 30 days. Sex
--- OUTSIDE RECORDS SUMMARY | 2024-03-12 04:38 | XMS_ITS | Continuity of Care Document ---
Author Organization [facility] Address [address] [place] [address]- Care Team Providers Care Wet Sander Name Role Phone Drew Barr MD Primary Care Physician [facility] Date[facility]s): 12/25/20 - 01/24/21 [facility] [address] [place], [place] [address] Allergies, Adverse Reactions, Alerts Substance Reaction Severity Status NKA Active Immunizations Given and Recorded Vaccine Date Status Refusal Reason tetanus/diphtheria/pertussis, acel(Tdap) 04/03/19 Given tetanus/diphtheria/pertussis, acel(Tdap) 1 10/15/18 Given influenza virus vaccine, inactivated 2 07/15/18 Gi paulion influenza virus vaccine, inactivated 08/24/14 Give n influenza virus vaccine, inactivated 07/17/12 Give n pneumococcal 23-valent vaccine 3 07/22/09 Given 1Result Comment: [10/15/2018] [facility]#[id number] 2Result Comment: [07/15/2018] [id number] 3Result Comment: lot # [id number] exp sep 21 2010 Medications apixaban 5 mg oral tablet See Instructions, 2 tablet By Mouth 2 times a day for 8 doses and then 1 tablet 2 times a day thereafter, # 48 tablet, 2 Refills, Maintenance, 11/03/20 12:54:00 EST, Tablet, [facility],Partial fill upon patient [...] 11/03/19 12:18:00 EST, Route to Pharmacy Electronically, [facility]... Start Date: 11/03/19 Status: Ordered gabapentin 400 mg oral capsule 400 mg, 1, capsule, By Mouth, Daily at bedtime, Take with 300 mg for total of 700 mg q HS, # 30 capsule, Refills 5, Tot. Refills 5, Maintenance, 02/23/20 12:22:00 EDT, Route to Pharmacy Electronically, [facility] #[id number], 160, cm, 10/07/19 10... Start Date: 02/23/20 [...] 3Pain relevant problem list includes: See below 69725 Social History Social History Type Response Tobacco Use: 4 or less cigar ettes(less than 1/4 pack)/day in last 30 days. Sex
--- OUTSIDE RECORDS SUMMARY | 2024-03-12 04:38 | XMS_ITS | Continuity of Care Document ---
Author Organization [facility] ter Address [address] [place] [address]- Care Team Providers Care Russian History Professor Name Role Phone Drew Barr MD Primary Care Physician [phone] [facility]counter [facility] Date(s): 10/21/19 - 10/21/[address] [address]- [facility] Discharge Disposition: A-D/C Home Attending Physician: Abhishek Gibbons MD Admitting Physician: Abhishek Gibbons MD Referring Physician: Not on Staff, Referring [...] Given 1Result Comment: [10/15/2018] [facility]#[id number] 2Result Comment: [07/15/2018] [id number] 3Result Comment: lot # [id number] exp sep [...] 01/19/19 10:14:48 EDT, Route to Pharmacy Electronically, [facility] Start Date: 01/19/19 Status: Ordered Seroquel 50 [...] 74% ( crippled ) on 12/08/17; initial [place]: 14 on 12/08/17 2SOAPP-R: 38 on 12/08/17 3Pain relevant problem list includes: See below 48079 Results Radiology Reports * Exam Date Time Procedure Performing Provider Status 10/21/19 3:48 PM Chest 2 Views Frontal and Lat Sherry Machuca; Auth (Verified) Notes: (Chest 2 Views Frontal and Lat) Reason For Exam: Shortness of Breath RESULT: Chest 2 Views Frontal and Lat Chest 2 Views Frontal and Lat Reason: Shortness of Breath; Clinical Question(s): Pneumonia; Hx of Present Illness: Patient c o chest pain for the last 3.5 weeks. Pt states she was seen her approx 1 month ago for similar. Pt states she awoke this AM with shortness of breath COMPARISON: 09/22/2019 and 12/06/2018 FINDINGS: LINES AND TUBES: None. LUNGS AND PLEURA: Clear lungs. Normal pulmonary vascularity. No pleural effusion. No pneumothorax. HEART, MEDIASTINUM AND RACHEL: Heart is normal in size. Normal mediastinal and hilar contour. BONES AND SOFT TISSUES: No acute abnormality. IMPRESSION: No acute abnormality. WSN: [id number] Dictated By: Georges Lebron DO Dictated Date/Time: 10/21/19 3:51 pm Reviewed By: Georges Lebron DO Signed By: Georges Lebron DO Signed Date/Time: 10/21/19 3:51 pm Transcribed By: CARMEN Transcribed Date/Time: 10/21/19 3:50 pm Vital Signs Most recent to oldest [Reference Range]: 1 2 Oxygen Saturation [94-100 %] 97 % (10/21/19 5:51 PM) 98 % (10/21/19 3:02 PM) Pulse Rate [55-90 bpm] 85 bpm (10/21/19 5:51 PM) 73 bpm (10/21/19 3:02 PM) Blood Pressure [90-138/55-84 mm Hg] 123/ 77mm Hg (10/21/19 5:51 PM) 115/74mm Hg (10/21/19 3:02 PM) Respiratory Rate [16-30 br/min] 18 br/mi n (10/21/19 5:51 PM) 18 br/min (10/21/19 3:02 PM) Temperature [96.8-100.4 DegF] 97.6 DegF (10/21/19 5:51 PM) 98.3 DegF (10/21/19 3:02 PM) Mode of Delivery (Oxygen) Room air (10/21/19 5:51 PM) Room air (10/21/19 3:02 PM) Blood pressure sites Arm, right (10/21/19 5:51 PM) Arm, right (10/21/19 3:02 PM) Temperature Route Oral (10/21/19 5:51 PM) Oral (10/21/19 3:02 PM) Social History Social History Type Response Tobacco Use: 4 or less cigar ettes(less than 1/4 pack)/day in last 30 days. Sex
--- OUTSIDE RECORDS SUMMARY | 2024-03-12 04:38 | XMS_ITS | Continuity of Care Document ---
Author Organization [facility] Address [address] [place] [address]- Care Team Providers Care Radiologic Technician Name Role Phone Drew Barr MD Primary Care Physician Encounter [facility] Date(s): 01/02/21 - 02/01/21 [facility] [address] [place], [place] [address] Allergies, Adverse Reactions, Alerts Substance [...] 1Result Comment: [10/15/2018] [facility]#[id number] 2Result Comment: [07/15/2018] [id number] 3Result Comment: lot # [id number] exp sep 21 2010 Medications apixaban 5 mg oral tablet See Instructions, 2 tablet By Mouth 2 times a day for 8 doses and then 1 tablet 2 times a day thereafter, # 48 tablet, 2 Refills, Maintenance, 11/03/20 12:54:00 EST, Tablet, [facility],Partial fill upon patient request [...] 11/03/19 12:18:00 EST, Route to Pharmacy Electronically, [facility]... Start Date: 11/03/19 Status: Ordered gabapentin 400 mg oral capsule 400 mg, 1, capsule, By Mouth, Daily at bedtime, Take with 300 mg for total of 700 mg q HS, # 30 capsule, Refills 5, Tot. Refills 5, Maintenance, 02/23/20 12:22:00 EDT, Route to Pharmacy Electronically, [facility] #[id number], 160, cm, 10/07/19 10... Start Date: 02/23/20 [...] 74% ( crippled ) on 12/08/17; initial [place]: 14 on 12/08/17 2SOAPP-R: 38 on 12/08/17 3Pain relevant problem list includes: See below 09945 Social History Social History Type Response Tobacco Use: 4 or less cigar ettes(less than 1/4 pack)/day in last 30 days. Sex
--- OUTSIDE RECORDS SUMMARY | 2024-03-12 04:38 | XMS_ITS | Continuity of Care Document ---
Author Organization [facility] Address [address] [place] [id number]- Care Team Providers Care Manager Of Human Resources Name Role Phone Sarah Padilla MD Primary Care Physician Encounter [facility] Date(s): 03/13/21 - 03/20/21 [facility] [address] [place] [id number] Attending Physician: Not on Staff, [...] 1Result Comment: [10/15/2018] [facility]#[id number] 2Result Comment: [07/15/2018] [id number] 3Result Comment: lot # [id number] exp sep 21 2010 Medications apixaban 5 mg oral tablet See Instructions, 2 tablet By Mouth 2 times a day for 8 doses and then 1 tablet 2 times a day thereafter, # 48 tablet, 2 Refills, Maintenance, 11/03/20 12:54:00 EST, Tablet, [facility],Partial fill upon patient request [...] 11/03/19 12:18:00 EST, Route to Pharmacy Electronically, [facility]... Start Date: 11/03/19 Status: Ordered gabapentin 400 mg oral capsule 400 mg, 1, capsule, By Mouth, Daily at bedtime, Take with 300 mg for total of 700 mg q HS, # 30 capsule, Refills 5, Tot. Refills 5, Maintenance, 02/15/21 10:37:00 EDT, Route to Pharmacy Electronically, [id number], 160, cm, 11/03/20 7:... Start Date: 02/15/21 [...] 74% ( crippled ) on 12/08/17; initial [place]: 14 on 12/08/17 2SOAPP-R: 38 on 12/08/17 3Pain relevant problem list includes: See below [id number] Social History Social History Type Response Tobacco Use: 4 or less cigar ettes(less than 1/4 pack)/day in last 30 days. Sex
--- OUTSIDE RECORDS SUMMARY | 2024-03-12 04:38 | XMS_ITS | Continuity of Care Document ---
Author Organization [facility] Address [address] [place] [address]- Care Team Providers Care Economic Geographer Name Role Phone Drew Barr MD Primary Care Physician [phone] Encounter [facility] Date(s): 04/28/20 - 05/28/20 [facility] [address] [place] [address]- [facility] Allergies, Adverse Reactions, Alerts Substance Reaction [...] 1Result Comment: [10/15/2018] [facility]#[id number] 2Result Comment: [07/15/2018] [id number] 3Result Comment: lot # [id number] exp sep [...] 11/03/19 12:18:00 EST, Route to Pharmacy Electronically, [facility]... Start Date: 11/03/19 Status: Ordered gabapentin 300 [...] 02/23/20 12:22:00 EDT, Route to Pharmacy Electronically, [facility] #[id number], 160, cm, 10/07/19 10... Start Date: 02/23/20 [...] 01/19/19 10:14:48 EDT, Route to Pharmacy Electronically, [id number] Start Date: 01/19/19 Status: Ordered Seroquel 50 mg oral tablet 1 tablet = 50 mg, By Mouth, Daily at bedtime, 0 Refills, Maintenance, 08/24/14 13:17:23 EST Start Date: 08/24/14 Status: Ordered Vistaril pamoate 25 mg oral capsule See Instructions, 1 capsule By Mouth daily at bedtime, # 7 capsule, 0 Refills, Soft Stop, 05/04/20 20:37:00 EDT, [facility] #[id number], 160, cm, 10/07/19 10:44:00 EST, Height, 57.3, kg, 05/04/20 20:36:00 EDT, Dry Weight Start Date: 05/04/20 Status: Ordered ZyrTEC 10 mg oral tablet = 10 mg, By Mouth, Daily, # 7 tablet, 0 Refills, Maintenance, 05/04/20 20:37:00 EDT, [id number], 160, cm, 10/07/19 10:44:00 EST, Height, 57.3, [...] [facility] bx 11/18 Dr. 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 Sex
--- OUTSIDE RECORDS SUMMARY | 2024-03-12 04:38 | XMS_ITS | Continuity of Care Document ---
Author Organization [facility] Address [address] [place] [address]- Care Team Providers Care Director Data Processing Name Role Phone Drew Barr MD Primary Care Physician [phone] Encounter [facility] Date(s): 08/03/19 - 12/01/19 [facility] [address] [place] [address]- [facility] Attending Physician: Drew Barr MD Allergies, Adverse [...] 3 07/22/09 Given 1Result Comment: [10/15/2018] [facility]#[id number] 2Result Comment: [07/15/2018] [id number] 3Result Comment: lot # [id number] exp sep [...] 11/03/19 12:18:00 EST, Route to Pharmacy Electronically, [facility]... Start Date: 11/03/19 Status: Ordered KlonoPIN 1 [...] 01/19/19 10:14:48 EDT, Route to Pharmacy Electronically, [id number] Start Date: 01/19/19 Status: Ordered predniSONE 20 mg oral tablet 3 tablet = 60 mg, By Mouth, Daily, for 30 days, # 90 tablet, 1 Refills, Acute 01/21/20 14:34:00 EDT, 11/22/19 14:34:00 EDT, [facility] #[id number], 160, cm, 10/07/19 10:44:00 EST, Height, 62, [...] 74% ( crippled ) on 12/08/17; initial [place]: 14 on 12/08/17 2SOAPP-R: 38 on 12/08/17 3Pain relevant problem list includes: See below [id number] Social History Social History Type Response Tobacco Use: 4 or less cigar ettes(less than 1/4 pack)/day in last 30 days. Sex
--- NOTE | 2024-03-12 04:40 | PC.NURSE ---
Pt c/o of right calf, pain, swelling and redness after swimming. Thought there was a splinter in there, and tried to get it out, with a needle. Pt states, I do use IV drugs, but not there Pt states, she uses IV Heroin and Opiates. Pt states, she took one random cefepine, that she had at home, and Ibuprofen 800mg, before midnight
[2024-03-12 05:55] VITALS: BP 131/97; PULSE 97; RESP 16; TEMP 36.7; O2SAT 97
--- NOTE | 2024-03-12 06:03 | ED_ITS ---
HPI - Extremity Problem General Chief complaint: Extremity Problem Stated complaint: rt leg abrasion Time Seen by Provider: 03/12/24 05:52 History of Present Illness ED Provider: Dr. Robert Feliz HPI Narrative: 39-year-old female with a history of in a methadone program, currently using injection heroin, hypertension, PTSD, right ankle fracture with multiple surgeries, skull fracture with hematoma who presents emergency department for evaluation of cellulitis of the right lower extremity. The patient's right medial calf has been erythematous and swollen for 2 days. Patient states that over the last 3-4 hours her leg is become more swollen and painful. The patient was concerned that there was pus under her skin so she stuck a needle into her skin and she was able to drain a small amount of purulent material. She believes that there is more purulent material in the area where she struck the needle. She denied fever, chills, chest pain, shortness of breath, nausea, vomiting, diarrhea, fatigue or weakness. The patient states she continues to use injection heroin despite being on methadone. She states she missed her methadone dose for 2 days. Related Data Previous Rx's ?Medication ?Instructions ?Recorded cephalexin 500 mg capsule 500 mg PO QID 7 days #28 caps 10/28/20 doxycycline hyclate 100 mg tablet 100 mg PO Q12H 10 days #20 tabs 10/28/20 Allergies Allergy/AdvReac Type Severity Reaction Status Date / Time No Known Allergies Allergy Unverified 03/12/24 03:59 Review of Systems 2 Review of Systems: Yes all other systems are reviewed and are negative PMFSH Past Medical History [facility] Narrative: Social history: The patient smokes 3-4 cigarettes per day. She denies alcohol use. She states she injects heroin multiple areas of her body 2 to 3 times a day. She does take methadone daily but she states she missed methadone over the past 2 days. Social History Social History Smoked in Last 30 Days: Yes Use of substances other than those prescribed or required for medical reasons: Yes Substance Use Type: Heroin, IV Drugs and Opiates Substance Use Frequency: Chronic Longstanding Advance Directives: No Advance Directives Information Provided: Yes Patient : No Physical Exam 2 Vital Signs: Vital Signs: Last Vital Signs Temp 98.0 F 03/12/24 05:55 Pulse 97 03/12/24 05:55 Resp 16 03/12/24 05:55 BP 131/97 H 03/12/24 05:55 Pulse Ox 97 03/12/24 05:55 O2 Del Method Room Air 03/12/24 05:55 BMI result Body Mass Index 24.3 Vital signs were normal Exam: General: Awake, alert in no distress Head: Normocephalic, atraumatic EENT: PERRL, Lids normal, sclera normal, conjunctiva normal, nose normal , ears normal, throat without erythema or exudates Neck: Supple, no adenopathy Lung: breath sounds symmetric, no wheezing, rales or rhonchi Chest: symmetric movement, nontender Heart: regular rate and rhythm, normal S1, S2 no murmurs or rubs Abdomen: soft, non-tender, nondistended, normal bowel sounds Back: no vertebral tenderness, no CVAT Extremities: Patient has upper extremities have multiple track rodriguez consistent with her heroin use. Patient's right lower extremity is swollen from the knee to the foot, there is a large area of erythema extending from the patella fossa to just above the ankle on the right medial calf . There is an area of induration and a central area of flocculence. . Image below was taken after incision and drainage with scalpel-there was a small amount of purulent material expressed incision site. Neuro: Awake, alert, oriented, normal speech, cranial nerves intact, moves all extremities symmetrically Psych: Pleasant, cooperative Medications Administered Discontinued Medications Generic Name Dose Route Start Last Admin Trade Name Freq PRN Reason Stop Dose Admin Lidocaine HCl 5 ml 03/12/24 06:03 03/12/24 06:34 Lidocaine Hcl 1 % Mpf 5 Ml Vial INFILTRATI 03/12/24 06:04 5 ml ONCE STA Administration Lidocaine HCl 5 ml 03/12/24 06:03 03/12/24 06:34 Lidocaine Hcl 1 % Mpf 5 Ml Vial EPIDURAL 03/12/24 06:04 Not Given ONCE ONE Medical Decision Making Medical Decision Making MDM Narrative: 39-year-old female with a history of in a methadone program, currently using injection heroin, hypertension, PTSD, right ankle fracture with multiple surgeries, skull fracture with hematoma who presents emergency department for evaluation of cellulitis of the right lower extremity. The patient's right medial calf has been erythematous and swollen for 2 days but over the last 3-4 hours the erythema has spread down her leg, the leg has become swollen and painful. The patient was concerned that there was pus under her skin so she stuck a needle into her calf and was able to drain a small amount of purulent material. She denies systemic symptoms. Patient is in a methadone program but missed her last 2 methadone doses. Vital signs were normal. Physical examination of her right lower extremity revealed a large area of erythema starting in her patella phos extending to just above the ankle with an area of induration and flocculence. 07:07 Differential diagnosis: ?Includes but is not limited to cellulitis, abscess, DVT Following evaluation was ordered: CBC, CMP, CRP, ESR, CK, lactic acid, lipase, magnesium, PTT, wound culture, urine test, drug screen urine, blood cultures x2, right lower extremity duplex ultrasound to rule out DVT Patient was initially treated with the following: Vancomycin 1500 mg IV, Zosyn 4.5 g IV, normal saline x1 L Course: 07:07 Patient's abscess was I and need by me and proximally 2 cc of purulent material was expressed from the incision site and sent for culture. The patient had a ultrasound-guided right arm 18 gauge IV placed at the bedside. At the end of my shift, the patient's laboratory evaluation and duplex ultrasound studies are pending, therefore the patient's care was turned over to my colleague, Dr. Constance Couch. Admission/Observation Consideration of admission/observation: Escalation of care including admission/observation considered Lab Data Labs: Lab Results 03/12/24 Range/Units 06:49 Urine Color Yellow Urine Appearance Clear Urine pH 6.5 (5.0-9.0) Ur Specific Stephens 1.020 (1.005-1.025) Urine Protein Negative (Neg-Trace) mg/dL Urine Glucose (UA) Negative (Negative) mg/dL Urine Ketones Negative (Negative) mg/dL Urine Blood Negative (Negative) Urine Nitrite Negative (Negative) Ur Leukocyte Esterase Negative (Negative) Urine Test NEGATIVE (NEGATIVE) Urine Opiates Screen POSITIVE H (Not Detect) Ur Buprenorphine Scrn Not Detected (Not Detect) ng/mL Ur Oxycodone Screen Not Detected (Not Detect) ng/mL Urine Methadone Screen Positive H (Not Detect) ng/mL Urine Fentanyl Screen POSITIVE H (Not Detect) Ur Barbiturates Screen Not Detected (Not Detect) Ur Phencyclidine Scrn Not Detected (Not Detect) Ur Amphetamines Screen Not Detected (Not Detect) U Benzodiazepines Scrn Not Detected (Not Detect) Urine Cocaine Screen POSITIVE H (Not Detect) U Marijuana (THC) Screen Not Detected (Not Detect) Chronic Conditions Patient?s care impacted by: Other (Injection heroin use disorder) Procedures Abscess I/D Site: lower extremity (Right medial calf) Side (if applicable): right Local Anesthetic: lidocaine 1% Amount of anesthesia used (mL): 5 Technique: incised with blade (#11 Scalpel) Amount of fluid expressed (mL): 2 Sent for culture/gram staining?: Yes Packing used?: none EJ/Peripheral Line Arm L: Time Out Performed: Yes Skin Cleansed in Sterile Fashion: Yes Size (gauge): 18 IV Secured and Dressing Applied: Yes Additional Comments: This peripheral line was placed using ultrasound guidance. After placement patient's blood tests were drawn whole line in the line was easily flushable. Discharge Plan Discharge Clinical Impression: Cellulitis and abscess of right leg, Heroin use, Methadone maintenance therapy patient Patient Disposition: Still a Patient Prescriptions: No Action doxycycline hyclate 100 mg tablet 100 mg PO Q12H 10 Days Qty: 20 0RF cephalexin 500 mg capsule 500 mg PO QID 7 Days Qty: 28 0RF Print Language: Latvian
[2024-03-12] MEDS: Lidocaine HCl 1 % MPF 5 ML VIAL INFILTRATI (06:34)
--- NOTE | 2024-03-12 06:45 | PC.NURSE ---
MD saw pt at bedside, labs and IV access ordered. abscess lanced and drained with minimal serosanguinous drainage culture obtained and sent, wound wrapped. Pt changed over to hospital attire.Per MD d/t IVDA and pt difficult stick will have day shift provider obtain u/s guided IV and get lab work. Unable to give meds at this time. Pt currently in bathroom attempting to give urine sample. Per pt last use of IV heroin was 2 days ago. Pt reports getting methadone at [facility] and states get take home dose of 8mg but has not picked up d/t issue with leg wound.
[2024-03-12 06:59] LABS: Appearance Urine Clear; Color Urine Yellow; Glucose Urine UA Negative (Negative); Leukocyte Esterase Urine Negative (Negative); Nitrite Urine Negative (Negative); PH 6.5 (5.0-9.0); UPreg QC Valid YES; Urine Blood Negative (Negative); Urine Ketones Negative (Negative); Urine Pregnancy NEGATIVE (NEGATIVE); Urine Protein Negative (Neg-Trace)
[2024-03-12 07:07] LABS: Amphetamine Screen Urine Not Detected (Not Detect); Barbiturates, Urine Not Detected (Not Detect); Benzodiazepines Screen Urine Not Detected (Not Detect); Buprenorphine Scr Not Detected (Not Detect); Cannabinoid Screen Urine Not Detected (Not Detect); Cocaine Screen Urine POSITIVE (Not Detect); Fentanyl, urine POSITIVE (Not Detect); Methadone Screen, Urine Positive (Not Detect); Opiate Screen Urine POSITIVE (Not Detect); Oxycodone Screen Urine Not Detected (Not Detect); Phencyclidine Screen Urine Not Detected (Not Detect)
[2024-03-12 07:25] LABS: MANUAL DIFF FLAG NO
[2024-03-12 07:27] LABS: Basophils Percent Auto 0.2 % (0-2); Eosinophils Absolute Auto 0.2 X10*3/uL (0.0-0.4); Eosinophils Percent Auto 1.5 % (0-4); Hematocrit 36.6 % (37.0-47.0); Hemoglobin 12.5 g/dl (12.0-16.0); Imm Gran Abs Auto 0.05 X10*3/uL (0.00-0.03); Imm Gran Pct Auto 0.5 % (0.0-0.4); Lymphocytes Absolute Auto 1.4 X10*3/uL (1.2-4.9); Lymphocytes Percent Auto 13.6 % (20-40); Mean Corpuscular HGB Conc 34.2 g/dl (31.0-35.0); Mean Corpuscular Hemoglobin 29.2 pg (27.0-33.0); Mean Corpuscular Volume 85.5 fL (80.0-98.0); Mean Platelet Volume 9.2 fL (9.4-12.3); Monocytes Absolute Auto 0.8 X10*3/uL (0.1-1.2); Monocytes Percent Auto 7.5 % (2-11); Neutrophils Absolute Auto 8.1 x10*3/uL (2.0-8.3); Neutrophils Percent Auto 76.7 % (45-73); Platelet Count 194 X10*3/uL (160-400); Red Blood Count 4.28 X10*6/uL (4.20-5.50); Red Cell Distribution Width 12.2 % (11.0-16.0); White Blood Count 10.6 X10*3/uL (4.8-10.8)
[2024-03-12 07:28] VITALS: BP 109/73; PULSE 92; RESP 16; O2SAT 95
--- NOTE | 2024-03-12 07:29 | PC.NURSE ---
ultrasound guided IV to obtain access by provider, labs obtained and sent. patient alert and oriented with even and unlabored respirations. awaiting ultrasound at this time
[2024-03-12 07:36] LABS: Partial Thromboplastin Time 34.8 SEC (26.0-36.8)
[2024-03-12 07:41] LABS: Alanine Aminotransferase 21 U/L (0-31); Alkaline Phosphatase 82 U/L (39-117); Anion Gap 12 (12-20); Aspartate Amino Transferase 25 U/L (5-31); Bilirubin Total 0.3 mg/dL (0.0-1.0); Blood Urea Nitrogen 12 mg/dL (9-16); Calcium 9.3 mg/dL (8.4-10.2); Carbon Dioxide 28 mmol/L (22-29); Chloride 101 mmol/L (96-108); Creatinine Clr Calc Pharmacy 99.7; Estimated Glomerular Filt Rate > 60; Glucose Random 86 mg/dL (60-115); Lipase 15 U/L (8-78); Magnesium 2.1 mg/dL (1.6-2.6); Potassium 3.6 mmol/L (3.3-5.1); Sodium 137 mmol/L (135-145); Total Protein 7.5 g/dL (6.5-8.0)
[2024-03-12] MEDS: 0.9 % Sodium Chloride 1,000 ML 999 ML IV (07:52)
[2024-03-12] MEDS: Piperacillin Sodium/Tazobactam 4.5 GM in 0.9 % Sodium Chloride 100 ML IV (07:52)
[2024-03-12 08:04] LABS: Erythrocyte Sedimentation Rate 44 MM/HR (0-20)
[2024-03-12] MEDS: vancomycin HCL 1,500 MG in 0.9 % Sodium Chloride 500 ML 333.33 MG IV (09:23)
--- NOTE | 2024-03-12 09:43 | PC.NURSE ---
second antibiotic infusing at this time, ultrasound at bedside. patient unsure as to whether or not she will be staying for admission.
[2024-03-12 09:47] VITALS: BP 111/75; PULSE 89; RESP 18; O2SAT 97
--- NOTE | 2024-03-12 10:40 | HE.PHANOTE ---
RE: METHADONE DOSING Patient is taking 50 mg am/ 30 mg pm methadone, last dose was given on 03/10/24 at [facility] per Treva.
--- NOTE | 2024-03-12 10:43 | PHA.MEDREC ---
Addendum entered by Vivian Oconnor reese 03/12/24 10:50: MED REC REVIEWED Original Note: Pharmacy Consult ? Medication Reconciliation Pharmacy has completed the medication reconciliation. Confiremed medications with patient. Patient stated they are not currently taking any antibiotics. Patient takes Seroquel 150 and she is taking it as needed when she goes to bed. Also patitnt states they are still taking Lamotrigine as directed but according to claims she last filled it 10/15/23 for 90 days. She last took her medication 2 days ago 03/10/2024.
[2024-03-12 12:38] VITALS: BP 111/75; PULSE 89; RESP 18; TEMP 36.7; O2SAT 97
== END 2024-03-12 12:38 | disposition left against medical advice (07) ==
PROVIDERS: Emergency Provider Emergency Medicine Emergency Medical Services; PCP Internal Medicine
DX: L03.115 Cellulitis of right lower limb (principal); L02.415 Cutaneous abscess of right lower limb; M79.661 Pain in right lower leg; F19.10 Other psychoactive substance abuse, uncomplicated; F11.20 Opioid dependence, uncomplicated; I10 Essential (primary) hypertension; F43.10 Post-traumatic stress disorder, unspecified; F17.210 Nicotine dependence, cigarettes, uncomplicated; Z79.899 Other long term (current) drug therapy
CPT/HCPCS: 10060; 36415; 36573; 80053; 80307; 81003; 81025; 82550; 83605; 83690; 83735; 85025; 85652; 85730; 86140; 87040; 87070; 87077; 87147; 87185; 87205; 93971; 96361; 96365; 96366; 96367; 99284; 99285; J2543; J3371